=== PATIENT | female | born 1965 | race Caucasian/White ===

== ENCOUNTER 2016-10-04 22:52 | Emergency (ER) | payer OTHER ==
[~2016-10-04] VITALS: Ht 154.9 cm; Wt 96.2 kg
[~2016-10-04 22:52] MED LIST: ADVIN50050 INH; ALBU1NEB10 INH; ALPR-411 PO; AMOX875T PO; CYAN1TAB4 PO; FLUT0.0529 INH; GABA800T2 PO; GUAISYP8 PO; HYDR-5688 PO; OMEP40CA36 PO; ONDA4TAB7 SL; OXYC1TAB3 PO; SENN8.6C OG; SNG10 PO; TRAM-453 PO; WARF2TAB PO
[2016-10-04 22:56] VITALS: TEMP 36.3; Ht 154.9 cm; Wt 96.2 kg
[2016-10-04] MEDS ORDERED: ALBUT/IPRATROP 3MG/0.5MG NEB 3 ML VIAL INH STA (23:08)
[2016-10-04] MEDS ORDERED: ADVIN50/60 INH (23:43)
[2016-10-04] MEDS ORDERED: PRLSR20 PO (23:49)
[2016-10-04 23:50] VITALS: BP 121/69; PULSE 87; O2SAT 97
[2016-10-04] MEDS ORDERED: AZITTAB PO (23:55)
--- NOTE | 2016-10-05 04:57 | EMERGENCY ROOM VISIT NOTE ---
History First contact with patient: 23:05 Chief Complaint: RESPIRATORY PROBLEMS Stated Complaint: ASTHMA,CAN'T BREATHE WHEN COUGHING Nursing Triage Summary: Patient reports difficulty breathing since yestrday. States her throat feels tight. Patient has a hx of asthma. States that her nebulizer machine at home is broken and not working properly. Patient also reports headache today. History of Present Illness The patient is a 51 year old female who presents to the Emergency Room with complaints of cough and wheezing for the past day. Patient states her home nebulizer broke. She has steroids already today. She had on back refill from the family care doctor. She took 1 dose already. Patient denies chest pain, fever, chills, productive cough, headache, sore throat, earache, abdominal pain , leg pain or swelling. No other complaints per patient. She states this feels like her asthma. Review of Systems See HPI for pertinent positives & negatives. A total of 10 systems reviewed and were otherwise negative. Past Medical/Surgical History Medical Problems: (1) Asthma (2) Bipolar I disorder (3) Esophageal Reflux (4) Hyperlipidemia Nec/Nos (5) Hypertension Nos (6) Migraine Unspecified W/O Intractable Migraine Surgical Problems: (1) Status post left hip replacement Social History Smoking Status: Former Smoker Alcohol Use: none Housing Status: lives with family Occupation Status: employed Current/Historical Medications Scheduled Alprazolam (Xanax), 0.5 MG PO TID Azithromycin (Zithromax Z-Saleem), 1 PKT PO UD Cyanocobalamin (B-12), 2,500 MCG PO DAILY Fluticasone Propionate (Nasal) (Flonase Allergy Relief), 2 SPRY CARLENE DIRECTED Gabapentin (Neurontin), 800 MG PO TID Medroxyprogesterone Acetate (C (Medroxyprogesterone Aceta), 150 MG IM Q3M Montelukast Sodium (Singulair), 10 MG PO HS Omeprazole (Prilosec), 40 MG PO BID Prednisone (Prednisone Tab), 40 MG PO DIRECTED Scheduled PRN Albuterol Sulf (Proventil 0.083% 2.5MG/3ML), 2.5 MG INH Q4 PRN for wheezing Fluticasone Prop/Salmeterol (Advair Diskus 500/50 60 Dose), 1 PUFF INH BID PRN for asthma Furosemide (Lasix), 40 MG PO UD PRN for swelling Ondansetron Odt (Zofran Odt), 4 MG SL Q6H PRN for Nausea Tramadol Hcl (Ultram), 50-100 MG PO Q6 PRN for Pain Allergies Coded Allergies: Sulfa Drugs (Verified Allergy, Severe, ANAPHYLAXIS, 10/05/16) Meperidine (Verified Allergy, Unknown, 10/05/16) Nicotine (Verified Allergy, Unknown, FROM NICOTINE PATCH, 10/05/16) Oxycodone (Verified Allergy, Unknown, TYLOX, 10/05/16) Sumatriptan (Verified Allergy, Unknown, ANAPHYLAXIS, 10/05/16) Uncoded Allergies: OPIATE ANTAG (Allergy, Unknown, OXYCODONE, 09/20/09) Physical Exam Vital Signs Date Time Temp Pulse Resp B/P Pulse Ox O2 Delivery O2 Flow Rate FiO2 10/04/16 23:50 97 Room Air 10/04/16 23:50 87 20 121/69 97 Room Air 10/04/16 23:04 Room Air 10/04/16 22:56 36.3 88 20 133/76 96 Room Air Pain Rating (0-10): 0 Physical Exam VITALS: Vitals are noted on the nurse's note and reviewed by myself. Vital signs stable. GENERAL: Pleasant female speaking in full sentences, in no acute distress, nondiaphoretic, well-developed well-nourished. SKIN: The skin was without rashes, erythema, edema, or bruising. There is no tenting of the skin. Capillary reflex less than 2 seconds. HEAD: Normocephalic atraumatic. EARS: External auditory canals clear, tympanic membranes pearly paige without erythema or effusion bilaterally. EYES: Pupils equal round and reactive to light and accommodation. Conjunctivae without injection, sclerae without icterus. Extraocular movements intact. NOSE: Patent, turbinates without inflammation or discharge. MOUTH: Mucous membranes moist. Pharynx without erythema or exudate. Uvula midline. Airway patent. Tongue does not deviate. NECK: Supple without nuchal rigidity. No lymphadenopathy. No thyromegaly. Cervical spine is nontender. No JVD. HEART: Regular rate and rhythm without murmurs gallops or rubs. LUNGS: Diffuse inspiration and expiratory wheezes, without rales or rhonchi. No dullness to percussion. No retractions or accessory muscle use. ABDOMEN: Positive bowel sounds x 4. Normal tympanic percussion. Soft, nontender, without masses or organomegaly. Ahmadi sign negative. No guarding or rebound tenderness. MUSCULOSKELETAL: No muscle atrophy, erythema, or edema noted. NEURO: Patient was alert and oriented to person place and time. Normal sensation to light and sharp touch. No focal neurological deficits. Medical Decision & Procedures Medications Administered Medications (Trade) Dose Ordered Sig/Carlin Route Start Time Stop Time Status Last Admin Dose Admin Albuterol/ Ipratropium (Duoneb) 3 ml NOW STAT INH 10/04/16 23:08 10/04/16 23:10 DC 10/04/16 23:38 3 ML ED Course Prior records/ancillary studies reviewed. Triage Nursing notes reviewed. Additional history obtained from the family. The patient's history was concerning for respiratory difficulties. Differential diagnosis: Etiologies such as infections, reactive airway disease, pneumonia, pneumothorax , COPD, CHF, cardiac ischemia, pulmonary embolism, musculoskeletal, gastrointestinal, as well as others were entertained. Physical examination: As above. Medications Nebulizer On reassessment the patient felt better. Diagnostic interpretation by me: Deferred This appears to be consistent with asthma exacerbation. Patient felt much better after being medicated as above. She was not hypoxic. She was not retracting. Lungs are reassessed and improved. She was advised to continue her steroids and to follow-up with family care in a few days or here in the ER sooner for chest pain, difficulty breathing, fevers, worsening signs or symptoms or as needed. By the evaluation outlined above emergent etiologies such as CHF, cardiac ischemia, pulmonary embolism,pneumonia, pneumothorax, musculoskeletal, serious bacterial infections, as well as others were deemed relatively unlikely. The pt informed about the findings as listed above. All questions were answered and pleased with the treatment. Return instructions were outlined and the patient was discharged in stable condition. Referral: The patient was referred back to their primary care physician for follow-up in 2 to 3 days for a recheck of the current condition. Medical Decision As above Impression Primary Impression: Asthma exacerbation Departure Information Dispostion Home / Self-Care Condition GOOD Forms WORK / SCHOOL INSTRUCTIONS, HOME CARE DOCUMENTATION FORM, IMPORTANT VISIT INFORMATION Patient Instructions Asthma - [facility], [facility] Additional Instructions Albuterol Inhaler: Take 2 puffs four times daily for five days, then as needed. Continue your prednisone. Continue your Azithromycin(Zithromax) 250mg: Take one a day for 4 additional days. All antibiotics can cause diarrhea. If this occurs and you feel worse or it does not resolve in 1-2 days follow up with your doctor or return to the Emergency Department as this could be signs of serious underlying problems. Any medication can cause an allergic reaction, stop the pills immediately and return to the ER for rash, hives, breathing difficulties, or swelling. Acetaminophen(Tylenol) may be used for fever or pain. Use 1000mg every six hours as needed. Avoid using more than 4000mg in a 24 hour period. (AND/OR) Ibuprofen(Motrin, Advil) may be used for fever or pain. Use 600mg every six hours as needed. Take with food. Avoid using more than 2400mg in a 24 hour period. Do not use 2400mg per day for more than three consecutive days without physician direction. Prolonged inappropriate use can lead to stomach upset or ulcers. Rest and drink plenty of fluids. Avoid smoke/smoking, fumes, dust, or any triggers in the past that may have affected your breathing. Continue current medications. Return to the ER for chest pain, difficulty breathing, fevers, vomiting, worsening of your condition, or as needed. Follow up with your primary physician this week for a recheck of your current condition.
[2017-01-07] MEDS ORDERED: FURO40TA3 PO (11:29)
[2017-01-07] MEDS ORDERED: MEDR150I19 IM (11:29)
== END 2016-10-05 00:10 | disposition home or self-care (01) ==
LOC: C.EDB 22:52 → C.EDC 10-05 00:10
DX: J45.901 Unspecified asthma with (acute) exacerbation (principal); F31.9 Bipolar disorder, unspecified; K21.9 Gastro-esophageal reflux disease without esophagitis; E78.5 Hyperlipidemia, unspecified; I10 Essential (primary) hypertension; Z96.642 Presence of left artificial hip joint; Z79.899 Other long term (current) drug therapy

== ENCOUNTER 2017-01-07 16:30 | Emergency (ER) | payer OTHER ==
[~2017-01-07] VITALS: Ht 154.9 cm; Wt 91.0 kg
[~2017-01-07 16:30] MED LIST changes: +ADVIN50/60 INH; -ADVIN50050 INH; -ALBU1NEB10 INH; -AMOX875T PO; +AZITTAB PO; -FLUT0.0529 INH; +FURO40TA3 PO; -GUAISYP8 PO; -HYDR-5688 PO; +MEDR150I19 IM; -OMEP40CA36 PO; -ONDA4TAB7 SL; -OXYC1TAB3 PO; +PRLSR20 PO; -SENN8.6C OG; -SNG10 PO; -WARF2TAB PO
[2017-01-07] MEDS ORDERED: SODIUM CHLORIDE 0.9% 1000ML 1,000 ML IV STA (16:37)
[2017-01-07] MEDS ORDERED: ONDANSETRON 4MG OD TAB ONE (16:37)
[2017-01-07] MEDS ORDERED: ONDANSETRON INJ 2 MG/ML 2 ML VIAL IV STA (16:37)
[2017-01-07] MEDS ORDERED: KETOROLAC TROMETHAMINE 30 MG/ML VIAL IV STA (16:37)
[2017-01-07 16:40] VITALS: TEMP 36.8; Ht 154.9 cm; Wt 91.0 kg
[2017-01-07] MEDS ORDERED: SUCR1TAB29 PO (17:28)
[2017-01-07 17:44] LABS: BASO % 0.2 %; BASO ABS # 0.01 K/uL (0-0.2); COMPLETE YES; EOS % 1.2 %; HEMATOCRIT 42.6 % (37-47); IG% 0.2 %; LYMPH % 19.8 %; LYMPH ABS # 1.02 K/uL (1.2-3.4); MEAN CELL VOLUME 91.6 fL (80-100); MEAN CORPUSCULAR HEMOGLOBIN 31.2 pg (25-34); MEAN PLATELET VOLUME 11.9 fL (7.4-10.4); MONO % 8.7 %; NEUT % 69.9 %; PLATELET COUNT 178 K/uL (130-400); RED BLOOD COUNT 4.65 M/uL (4.2-5.4); WHITE BLOOD COUNT 5.15 K/uL (4.8-10.8)
[2017-01-07 18:10] LABS: BUN/CREATININE RATIO 8.8 (10-20); CALCIUM 8.1 mg/dl (8.5-10.1); CREATININE 0.97 mg/dl (0.60-1.20); POTASSIUM 3.3 mmol/L (3.5-5.1)
[2017-01-07 18:15] LABS: PARTIAL THROMBOPLASTIN RATIO 0.9; PROTHROMBIN TIME (PATIENT) 11.1 SECONDS (9.0-12.0)
[2017-01-07] MEDS ORDERED: SACC250C PO (18:15)
[2017-01-07] MEDS ORDERED: DOXE10CA PO (18:15)
[2017-01-07] MEDS ORDERED: MOME200A INH (18:28)
[2017-01-07] MEDS ORDERED: ATOM40CA PO (18:28)
[2017-01-07] MEDS ORDERED: IPRA1AER2 INH (18:28)
[2017-01-07] MEDS ORDERED: TOPI100T20 PO ×2 (18:28)
[2017-01-07] MEDS ORDERED: ALPR1TAB3 PO (18:28)
[2017-01-07] MEDS ORDERED: ZIPR1CAP4 PO (18:28)
[2017-01-07] MEDS ORDERED: NYST100010 TOP (18:28)
[2017-01-07] MEDS ORDERED: PANT40TA PO (18:28)
[2017-01-07] MEDS ORDERED: HYDR5SYP11 PO (18:28)
[2017-01-07] MEDS ORDERED: GABA800T PO (18:28)
[2017-01-07] MEDS ORDERED: FLVHFA110 INH (18:28)
[2017-01-07] MEDS ORDERED: ATRINSX INH (18:28)
[2017-01-07] MEDS ORDERED: BUPR-83 PO (18:31)
[2017-01-07] MEDS ORDERED: MULT-513 PO (18:31)
[2017-01-07] MEDS ORDERED: TRAZ100T29 PO (18:31)
[2017-01-07] MEDS ORDERED: MoRPHine SULFATE 4 MG/ML 1 ML CARP\\VIAL IV STA (18:36)
--- NOTE | 2017-01-07 18:38 | DIAGNOSTIC IMAGING REPORT ---
ABDOMEN 2VIEW W/PA CHEST RTN CLINICAL HISTORY: ABDOMINAL PAIN/GI pain. Nausea. COMPARISON STUDY: 02/16/2012. FINDINGS: Lungs are considered clear. Chronic fibrotic scarring left base. No acute infiltrate. Bowel pattern demonstrates several slightly distended loops of small bowel as well as colon. Postoperative changes in the right upper quadrant. Patient status post left hip arthroplasty. IMPRESSION: No acute process the chest. Mild generalized nonobstructive ileus. Electronically signed by: Ariel Newman M.D. 01/07/2017 6:37 PM Dictated Date/Time: 01/07/2017 6:36 PM
--- NOTE | 2017-01-07 18:53 | EMERGENCY ROOM VISIT NOTE ---
History Report prepared by Saritha: Jesús Stafford Under the Supervision of: Dr. Jose Raul Singh D.O. First contact with patient: 16:32 Chief Complaint: ABDOMINAL PAIN Stated Complaint: AB PAIN History of Present Illness The patient is a 51 year old female who presents to the Emergency Room with complaints of persistent upper abdominal pain that started around 1000 this morning. She says that the pain is severe. The patient notes that the pain sometimes wraps around into both her flank regions around her kidney area. She says that when the pain gets really bad, it sometimes will radiate down into her mid abdomen. The patient adds that she has had arm pain the past few days. She states that she had been having diarrhea, but she took 2 Imodium, and now her diarrhea has been relieved. This current pain started after her diarrhea ceased. She says that she has never had symptoms like these before. The patient notes that she has just moved out of a house with black mold inside. Source of History: patient Onset: Around 1000 this morning Position: abdomen (upper, radiating downward) Symptom Intensity: moderate Timing: other (persistent) Associated Symptoms: + diarrhea (has been relieved) Note: Associated symptoms: Bilateral flank pain around kidneys. Review of Systems See HPI for pertinent positives & negatives. A total of 10 systems reviewed and were otherwise negative. Past Medical & Surgical Medical Problems: (1) Asthma (2) Bipolar I disorder (3) Esophageal Reflux (4) Hyperlipidemia Nec/Nos (5) Hypertension Nos (6) Migraine Unspecified W/O Intractable Migraine Surgical Problems: (1) Status post left hip replacement Family History Heart disease Social History Smoking Status: Former Smoker Alcohol Use: none Housing Status: lives with family Occupation Status: employed Current/Historical Medications Scheduled Alprazolam (Xanax), 1 MG PO HS Atomoxetine (Strattera), 40 MG PO DAILY Bupropion (Wellbutrin), 100 MG PO BID Fluticasone Propionate (Flovent Hfa), 2 PUFFS INH BID Fluticasone Propionate (Nasal) (Flonase Allergy Relief), 2 SPRY CARLENE DIRECTED Gabapentin (Neurontin), 800 MG PO TID Ipratropium [place] (Atrovent 0.02% Soln), 1 DOSE INH QID Medroxyprogesterone Acetate (C (Medroxyprogesterone Aceta), 150 MG IM Q3M Mometasone Furoate-Formoterol (Dulera 200/5 Mcg), 2 PUFFS INH BID Montelukast Sodium (Singulair), 10 MG PO HS Multivitamins/Minerals (Mvi With Minerals), 1 TAB PO DAILY Pantoprazole (Protonix), 40 MG PO BID Prednisone (Prednisone Tab), 40 MG PO DIRECTED Saccharomyces Boulardii (Florastor), 2 TABS PO BID Sucralfate (Carafate), 1 GM PO ACHS Topiramate (Topamax), 100 MG PO QAM Topiramate (Topamax), 200 MG PO QPM Trazodone Hcl (Trazodone), 200 MG PO HS Ziprasidone Hcl (Geodon), 40 MG PO UD Scheduled PRN Albuterol Sulf (Proventil 0.083% 2.5MG/3ML), 2.5 MG INH Q4 PRN for wheezing Doxepin (Sinequan), 10-20 MG PO BID PRN for STRESS Furosemide (Lasix), 40 MG PO MWF PRN for swelling Hydrocodone W/ Homatropine (Hycodan 5/1.5MG 5 Ml), 5 ML PO Q6H PRN for Cough Ipratropium-Albuterol (Combivent Respimat), 2 PUFFS INH QID PRN for SOB/Wheezing Nystatin (Topical) (Nystop), 1 APPLN TOP TID PRN for Ondansetron Odt (Zofran Odt), 4 MG SL Q6H PRN for Nausea Allergies Coded Allergies: Sulfa Drugs (Verified Allergy, Severe, ANAPHYLAXIS, 10/05/16) Adhesives (Verified Allergy, Unknown, UNKNOWN, 01/07/17) Meperidine (Verified Allergy, Unknown, 10/05/16) Nicotine (Verified Allergy, Unknown, FROM NICOTINE PATCH, 10/05/16) Oxycodone (Verified Allergy, Unknown, TYLOX, 10/05/16) Sumatriptan (Verified Allergy, Unknown, ANAPHYLAXIS, 10/05/16) Amoxicillin (Verified Adverse Reaction, Severe, GI SYMPTOMS, 01/07/17) Clavulanic Acid (Verified Adverse Reaction, Severe, GI SYMPTOMS, 01/07/17) Milk Protein Extract (Verified Adverse Reaction, Severe, UNABLE TO URINATE , 01/07/17) Tiotropium (Verified Adverse Reaction, Severe, UNABLE TO URINATE, 01/07/17) Uncoded Allergies: OPIATE ANTAG (Allergy, Unknown, OXYCODONE, 09/20/09) Physical Exam Vital Signs Date Time Temp Pulse Resp B/P Pulse Ox O2 Delivery O2 Flow Rate FiO2 01/07/17 18:27 79 16 136/76 98 Room Air 01/07/17 17:00 84 01/07/17 16:40 36.8 118 20 135/83 100 Room Air Physical Exam CONSTITUTIONAL/VITAL SIGNS: Reviewed / noted above. GENERAL: Non-toxic in appearance. INTEGUMENTARY: Warm, dry, and [place]. HEAD: Normocephalic. EYES: without scleral icterus or trauma. ENT/OROPHARYNX: clear and moist. LYMPHADENOPATHY/NECK: Is supple without lymphadenopathy or meningismus. RESPIRATORY: Lungs clear and equal. CARDIOVASCULAR: Regular rate and rhythm. GI/ABDOMEN: Soft and nontender. No organomegaly or pulsatile mass. No rebound or guarding. Normal bowel sounds. EXTREMITIES: Warm and well perfused. BACK: No CVA tenderness. NEUROLOGICAL: Intact without focal deficits. PSYCHIATRIC: normal affect. MUSCULOSKELETAL: Normally developed with good muscle tone. Medical Decision & Procedures ER Provider Diagnostic Interpretation: Radiology results as stated below per my review and radiologist interpretation: ABDOMEN 2VIEW W/PA CHEST RTN CLINICAL HISTORY: ABDOMINAL PAIN/GI pain. Nausea. COMPARISON STUDY: 02/16/2012. FINDINGS: Lungs are considered clear. Chronic fibrotic scarring left base. No acute infiltrate. Bowel pattern demonstrates several slightly distended loops of small bowel as well as colon. Postoperative changes in the right upper quadrant. Patient status post left hip arthroplasty. IMPRESSION: No acute process the chest. Mild generalized nonobstructive ileus. Electronically signed by: Ariel Newman M.D. 01/07/2017 6:37 PM Dictated Date/Time: 01/07/2017 6:36 PM ABDOMEN AND PELVIS CT WITHOUT CONTRAST CT DOSE: 1050.48 mGy.cm HISTORY: Pain. Nausea. upper abd pain TECHNIQUE: Multiaxial CT images of the abdomen and pelvis were performed without contrast. COMPARISON STUDY: None. FINDINGS: Lung bases are clear. Liver spleen and pancreas are unremarkable. Prior cholecystectomy. Kidneys are negative for calcification or hydronephrosis. Bowel pattern is nonobstructive. The appendix is normal. Bladder is midline. Prior left hip arthroplasty. IMPRESSION: No significant abnormality identified within the abdomen or pelvis. Electronically signed by: Ariel Newman M.D. 01/07/2017 7:24 PM Dictated Date/Time: 01/07/2017 7:22 PM Laboratory Results 01/07/17 17:30 Red Blood Count 4.65, Mean Corpuscular Volume 91.6, Mean Corpuscular Hemoglobin 31.2, Mean Corpuscular Hemoglobin Concent 34.0, Mean Platelet Volume 11.9, Neutrophils (%) (Auto) 69.9, Lymphocytes (%) (Auto) 19.8, Monocytes (%) (Auto) 8.7, Eosinophils (%) (Auto) 1.2, Basophils (%) (Auto) 0.2, Neutrophils # (Auto) 3.60, Lymphocytes # (Auto) 1.02, Monocytes # (Auto) 0.45, Eosinophils # (Auto) 0.06, Basophils # (Auto) 0.01 01/07/17 17:30 Test 01/07/17 17:30 01/07/17 17:50 White Blood Count 5.15 K/uL (4.8-10.8) Red Blood Count 4.65 M/uL (4.2-5.4) Hemoglobin 14.5 g/dL (12.0-16.0) Hematocrit 42.6 % (37-47) Mean Corpuscular Volume 91.6 fL (80-100) Mean Corpuscular Hemoglobin 31.2 pg (25-34) Mean Corpuscular Hemoglobin Concent 34.0 g/dl (32-36) Platelet Count 178 K/uL (130-400) Mean Platelet Volume 11.9 fL (7.4-10.4) Neutrophils (%) (Auto) 69.9 % Lymphocytes (%) (Auto) 19.8 % Monocytes (%) (Auto) 8.7 % Eosinophils (%) (Auto) 1.2 % Basophils (%) (Auto) 0.2 % Neutrophils # (Auto) 3.60 K/uL (1.4-6.5) Lymphocytes # (Auto) 1.02 K/uL (1.2-3.4) Monocytes # (Auto) 0.45 K/uL (0.11-0.59) Eosinophils # (Auto) 0.06 K/uL (0-0.5) Basophils # (Auto) 0.01 K/uL (0-0.2) RDW Standard Deviation 42.3 fL (36.4-46.3) RDW Coefficient of Variation 12.7 % (11.5-14.5) Immature Granulocyte % (Auto) 0.2 % Immature Granulocyte # (Auto) 0.01 K/uL (0.00-0.02) Anion Gap 8.0 mmol/L (3-11) Est Creatinine Clear Calc Drug Dose 71.3 ml/min Estimated GFR () 78.9 Estimated GFR (Non- 68.1 BUN/Creatinine Ratio 8.8 (10-20) Calcium Level 8.1 mg/dl (8.5-10.1) Total Bilirubin 0.7 mg/dl (0.2-1) Direct Bilirubin 0.2 mg/dl (0-0.2) Aspartate Amino Transf (AST/SGOT) 20 U/L (15-37) Alanine Aminotransferase (ALT/SGPT) 23 U/L (12-78) Alkaline Phosphatase 81 U/L (45-117) Total Protein 6.8 gm/dl (6.4-8.2) Albumin 3.6 gm/dl (3.4-5.0) Lipase 84 U/L (73-393) Prothrombin Time 11.1 SECONDS (9.0-12.0) Prothromb Time International Ratio 1.0 (0.9-1.1) Activated Partial Thromboplast Time 23.2 SECONDS (21.0-31.0) Partial Thromboplastin Ratio 0.9 Laboratory results as stated above per my review. Medications Administered Medications (Trade) Dose Ordered Sig/Carlin Route Start Time Stop Time Status Last Admin Dose Admin Ondansetron HCl 4 mg 4 mg STK-MED ONCE .ROUTE 01/07/17 16:37 01/07/17 16:38 DC 01/07/17 16:37 4 MG Sodium Chloride (Nss 1000ml) 1,000 ml @ 999 mls/hr Q1H1M STAT IV 01/07/17 16:37 01/07/17 17:37 DC 01/07/17 17:25 999 MLS/HR Ondansetron HCl (Zofran Inj) 4 mg NOW STAT IV 01/07/17 16:37 01/07/17 16:40 DC 01/07/17 17:34 4 MG Ketorolac Tromethamine (Toradol Inj) 30 mg NOW STAT IV 01/07/17 16:37 01/07/17 16:40 DC 01/07/17 17:34 30 MG Morphine Sulfate (MoRPHine SULFATE INJ) 4 mg NOW STAT IV 01/07/17 18:36 01/07/17 18:37 DC 01/07/17 18:36 4 MG Hydromorphone HCl (Dilaudid Inj) 2 mg NOW STAT IV 01/07/17 18:55 01/07/17 18:57 DC 01/07/17 19:05 2 MG Prochlorperazine Edisylate (Compazine Inj) 10 mg NOW STAT IV 01/07/17 18:55 01/07/17 18:57 DC 01/07/17 19:00 10 MG ED Course 1634: Previous medical records were reviewed. The patient was evaluated in room C2B. A complete history and physical examination was performed. 163: Ordered Toradol Inj 30 mg IV, Zofran Inj 4 mg IV, NSS 1000 ml @ 999 mls/ hr IV. 183: Ordered Morphine Sulfate Inj 4 mg IV. 1852: I reevaluated the patient and she is still having pain. 1854: Ordered Compazine Inj 10 mg IV, Dilaudid Inj 2 mg IV. 3: On reevaluation, the patient is resting. I discussed the results and findings with the patient. She verbalized agreement of the treatment plan. She was discharged home. Medical Decision Differential considered: pancreatitis, hepatitis, or acute cholecystitis, AAA, UTI, pyelonephritis, kidney stones, appendicitis, diverticulitis, shingles, bowel obstruction mesenteric ischemia, intussusception,hernia, ovarian torsion, ruptured ovarian cyst,ectopic , . Medication Reconciliation: I attest that I have personally reviewed the patient' s current medication list. Blood pressure Screening: Patient was found to have normal blood pressure on screening and does not require follow-up. This is a 51-year-old female who presents to the ED with a chief complaint of diarrhea as well as some nausea, upper abdominal pain and low back pain. The patient states that her symptoms started around 10 AM this morning. She denies any other significant symptoms. The patient has a relatively unremarkable abdominal exam. CBC, complete metabolic panel, lipase are normal. Urine did not show infection. A chest x-ray was negative for acute disease. Abdominal series showed mild ileus. CT scan of the abdomen or pelvis did not show any acute abnormality. The patient was told the results. She was treated with IV fluids, IV Toradol and IV Zofran. She was also given IV morphine., Dilaudid IV and Compazine IV. She was felt to be stable for discharge and outpatient follow -up. Impression Primary Impression: Diarrhea Additional Impression: Upper abdominal pain Scribe Attestation The scribe's documentation has been prepared under my direction and personally reviewed by me in its entirety. I confirm that the note above accurately reflects all work, treatment, procedures, and medical decision making performed by me. Departure Information Dispostion Home / Self-Care Referrals Maxine Edwards M.D. (MEDICAL) (PCP) Patient Instructions Abdominal Pain, My [facility] Additional Instructions Follow-up with your doctor for further care and evaluation in 1-2 days. Return to the emergency department for worsening or new symptoms or any concerns. You have been examined and treated today on an emergency basis only. This is not a substitute for, or an effort to provide, complete comprehensive medical care. It is impossible to recognize and treat all injuries or illnesses in a single emergency department visit. It is therefore important that you follow up closely with your doctor. Call as soon as possible for an appointment. Problem Qualifiers
[2017-01-07] MEDS ORDERED: PROCHLORPERAZINE 5 MG/ML 2 ML VIAL IV STA (18:55)
[2017-01-07] MEDS ORDERED: HYDROmorphone INJ 2 MG/ML SYR/VIAL IV STA (18:55)
--- NOTE | 2017-01-07 19:25 | DIAGNOSTIC IMAGING REPORT ---
ABDOMEN AND PELVIS CT WITHOUT CONTRAST CT DOSE: 1050.48 mGy.cm HISTORY: Pain. Nausea. upper abd pain TECHNIQUE: Multiaxial CT images of the abdomen and pelvis were performed without contrast. COMPARISON STUDY: None. FINDINGS: Lung bases are clear. Liver spleen and pancreas are unremarkable. Prior cholecystectomy. Kidneys are negative for calcification or hydronephrosis. Bowel pattern is nonobstructive. The appendix is normal. Bladder is midline. Prior left hip arthroplasty. IMPRESSION: No significant abnormality identified within the abdomen or pelvis. Electronically signed by: Ariel Newman M.D. 01/07/2017 7:24 PM Dictated Date/Time: 01/07/2017 7:22 PM
[2017-01-07 20:10] VITALS: BP 136/78; PULSE 95; O2SAT 97
[2017-01-07] MEDS ORDERED: ALBINS/ INH (23:45)
[2017-01-07] MEDS ORDERED: FLUT0.15 NAE (23:46)
[2017-01-07] MEDS ORDERED: MONT1TAB3 PO (23:48)
[2017-01-07] MEDS ORDERED: ONDA8TAB62 SL (23:50)
[2017-01-07] MEDS ORDERED: PRED20TA2 PO (23:53)
== END 2017-01-07 20:11 | disposition home or self-care (01) ==
LOC: EDBD 16:30 → C.EDC 16:31
DX: R19.7 Diarrhea, unspecified (principal); R10.10 Upper abdominal pain, unspecified; E78.5 Hyperlipidemia, unspecified; I10 Essential (primary) hypertension; K21.9 Gastro-esophageal reflux disease without esophagitis; F31.9 Bipolar disorder, unspecified; J45.909 Unspecified asthma, uncomplicated; Z96.642 Presence of left artificial hip joint; Z87.891 Personal history of nicotine dependence; Z79.899 Other long term (current) drug therapy; Z88.1 Allergy status to other antibiotic agents; Z88.2 Allergy status to sulfonamides; Z88.5 Allergy status to narcotic agent; Z88.8 Allergy status to other drugs, medicaments and biological substances; Z91.011 Allergy to milk products; Z91.09 Other allergy status, other than to drugs and biological substances; Z82.49 Family history of ischemic heart disease and other diseases of the circulatory system

== ENCOUNTER 2017-08-31 14:53 | Emergency (ER) | payer OTHER ==
[~2017-08-31] VITALS: Ht 154.9 cm; Wt 100.0 kg
[~2017-08-31 14:53] MED LIST changes: -ADVIN50/60 INH; +ALBINS/ INH; -ALPR-411 PO; +ALPR1TAB3 PO; +ATOM40CA PO; +ATRINSX INH; -AZITTAB PO; +BUPR-83 PO; -CYAN1TAB4 PO; +DOXE10CA PO; +FLUT0.15 NAE; +FLVHFA110 INH; +GABA800T PO; -GABA800T2 PO; +HYDR5SYP11 PO; +IPRA1AER2 INH; +MOME200A INH; +MONT1TAB3 PO; +MULT-513 PO; +NYST100010 TOP; +ONDA8TAB62 SL; +PANT40TA PO; +PRED20TA2 PO; -PRLSR20 PO; +SACC250C PO; +SUCR1TAB29 PO; +TOPI100T20 PO; -TRAM-453 PO; +TRAZ100T29 PO; +ZIPR1CAP4 PO
[2017-08-31] MEDS ORDERED: ALBUT/IPRATROP 3MG/0.5MG NEB 3 ML VIAL INH STA (15:02)
[2017-08-31] MEDS ORDERED: SODIUM CHLORIDE 0.9% 1000ML 1,000 ML IV STA (15:02)
[2017-08-31] MEDS ORDERED: ONDANSETRON INJ 2 MG/ML 2 ML VIAL IV STA ×2 (15:02→21:16)
[2017-08-31 15:06] VITALS: TEMP 36.4; Ht 154.9 cm; Wt 100.0 kg
--- NOTE | 2017-08-31 15:09 | EMERGENCY ROOM VISIT NOTE ---
History Report prepared by Saritha: Jesús Stafford Under the Supervision of: Dr. Marci Medel M.D. First contact with patient: 14:58 Chief Complaint: ILLNESS Stated Complaint: ILLNESS (GENERAL) History of Present Illness The patient is a 52 year old female who presents to the Emergency Room with complaints of a waxing and waning generalized illness that started a couple weeks ago. She states that she was diagnosed with bronchitis, and just finished her prescribed antibiotic. She says that she was getting better, but her symptoms are now coming back. The patient states that her was recently diagnosed with pneumonia, and was negative for influenza. She notes that she has been short of breath, especially on exertion. She adds that she has mid left -sided abdominal pain, and has been having bad diarrhea that worsened last night , in addition to nausea and dry heaving. The patient denies any vomiting or hematochezia. She notes a history of C. difficile. The patient says that she is a smoker, but has not smoked the past few days. She adds that she has not taken her temperature. Source of History: patient, nursing staff Onset: A couple weeks ago Position: other (global - illness) Quality: other (diagnosed with bronchitis) Timing: waxes/wanes Associated Symptoms: + SOB, + nausea, + abdominal pain, + diarrhea, No vomiting, No hematochezia Note: Associated symptoms; Dry heaves. Review of Systems See HPI for pertinent positives & negatives. A total of 10 systems reviewed and were otherwise negative. Past Medical & Surgical Medical Problems: (1) Asthma (2) Bipolar I disorder (3) Esophageal Reflux (4) Hyperlipidemia Nec/Nos (5) Hypertension Nos (6) Migraine Unspecified W/O Intractable Migraine Surgical Problems: (1) Status post left hip replacement Family History Heart disease Social History Smoking Status: Former Smoker Alcohol Use: none Housing Status: lives with family Occupation Status: employed Current/Historical Medications Scheduled Atomoxetine (Strattera), 40 MG PO DAILY Bupropion (Wellbutrin), 75 MG PO QAM Bupropion (Wellbutrin Sr), 100 MG PO QAM Doxepin Hcl (Doxepin), 75 MG PO HS Gabapentin (Neurontin), 800 MG PO TID Medroxyprogesterone Acetate (C (Medroxyprogesterone Aceta), 150 MG IM Q3M Montelukast Sodium (Singulair), 10 MG PO HS Pantoprazole (Protonix), 40 MG PO BID Topiramate (Topamax), 50 MG PO QAM Topiramate (Topamax), 100 MG PO HS Venlafaxine Hcl (Effexor Xr), 37.5 MG PO DAILY Ziprasidone Hcl (Geodon), 80 MG PO QPM Ziprasidone Hcl (Geodon), 60 MG PO QAM Scheduled PRN Alprazolam (Xanax), 0.5 MG PO BID PRN for Anxiety Furosemide (Lasix), 40 MG PO UD PRN for SWELLING Ipratropium-Albuterol (Combivent Respimat), 2 PUFFS INH Q4 PRN for Wheezing Allergies Coded Allergies: Sulfa Drugs (Verified Allergy, Severe, ANAPHYLAXIS, 08/31/17) Morphine (Unverified Allergy, Intermediate, EXTREME ITCHING, 08/31/17) Adhesives (Verified Allergy, Unknown, UNKNOWN, 08/31/17) Meperidine (Verified Allergy, Unknown, 08/31/17) Nicotine (Verified Allergy, Unknown, FROM NICOTINE PATCH, 08/31/17) Oxycodone (Verified Allergy, Unknown, TYLOX, 08/31/17) Sumatriptan (Verified Allergy, Unknown, ANAPHYLAXIS, 08/31/17) Amoxicillin (Verified Adverse Reaction, Severe, GI SYMPTOMS, 08/31/17) Clavulanic Acid (Verified Adverse Reaction, Severe, GI SYMPTOMS, 08/31/17) Milk Protein Extract (Verified Adverse Reaction, Severe, UNABLE TO URINATE , 08/31/17) Tiotropium (Verified Adverse Reaction, Severe, UNABLE TO URINATE, 08/31/17) Uncoded Allergies: OPIATE ANTAG (Allergy, Unknown, OXYCODONE, 09/20/09) Physical Exam Vital Signs Date Time Temp Pulse Resp B/P (MAP) Pulse Ox O2 Delivery O2 Flow Rate FiO2 08/31/17 20:30 122/73 08/31/17 20:28 90 97 08/31/17 20:01 117/73 08/31/17 19:58 94 100 08/31/17 19:31 132/77 08/31/17 19:28 92 97 08/31/17 19:23 83 97 08/31/17 19:01 133/85 08/31/17 18:53 85 98 08/31/17 18:31 /82 08/31/17 18:23 80 98 08/31/17 18:01 112/62 08/31/17 17:53 84 97 08/31/17 17:31 103 18 123/63 99 Room Air 08/31/17 17:30 123/63 08/31/17 16:45 101 17 108/66 97 Room Air 08/31/17 16:23 88 19 100 08/31/17 16:01 108/66 08/31/17 15:53 92 16 100 08/31/17 15:51 107/79 08/31/17 15:23 86 08/31/17 15:23 89 18 08/31/17 15:06 36.4 86 20 111/69 98 Room Air 08/31/17 15:02 111/69 Physical Exam Vital signs reviewed. General: Uncomfortable-appearing 52 year old female, in no significant distress. HEENT: No scleral icterus, PERRLA, neck supple. Atraumatic. Cardiovascular: Regular rate and rhythm, no extra sounds. Pulmonary: Clear to auscultation bilaterally, normal work of breathing. Abdomen: Soft, nontender, nondistended, positive bowel sounds. Musculoskeletal: Atraumatic, no peripheral edema. Neurologic: Patient awake alert and oriented x 3, full strength in all 4 extremities. Cranial nerves 2 through 12 grossly intact. Skin: Warm, dry, no rash Medical Decision & Procedures ER Provider Diagnostic Interpretation: X-ray results as stated below per interpretation by me and the radiologist: CHEST ONE VIEW PORTABLE CLINICAL HISTORY: Generalized illness. Recent bronchitis. COMPARISON STUDY: Chest radiograph January 02. FINDINGS: Lung volumes are diminished. This is unchanged. No pneumothorax or pleural effusion is noted. Linear left lung opacity suggests atelectasis. There is no evidence for pulmonary edema. Cardiomediastinal silhouette is unremarkable. IMPRESSION: No acute cardiopulmonary findings. No change in appearance of the chest. Electronically signed by: Matthew Mahmood M.D. 08/31/2017 3:28 PM Dictated Date/Time: 08/31/2017 3:27 PM Laboratory Results 08/31/17 15:40 Red Blood Count 5.16, Mean Corpuscular Volume 93.2, Mean Corpuscular Hemoglobin 31.8, Mean Corpuscular Hemoglobin Concent 34.1, Mean Platelet Volume 12.2, Neutrophils (%) (Auto) 78.4, Lymphocytes (%) (Auto) 14.2, Monocytes (%) (Auto) 6.5, Eosinophils (%) (Auto) 0.2, Basophils (%) (Auto) 0.2, Neutrophils # (Auto) 10.23, Lymphocytes # (Auto) 1.85, Monocytes # (Auto) 0.85, Eosinophils # (Auto) 0.03, Basophils # (Auto) 0.02 08/31/17 15:40 Test 08/31/17 15:40 08/31/17 19:50 White Blood Count 13.04 K/uL (4.8-10.8) Red Blood Count 5.16 M/uL (4.2-5.4) Hemoglobin 16.4 g/dL (12.0-16.0) Hematocrit 48.1 % (37-47) Mean Corpuscular Volume 93.2 fL (80-100) Mean Corpuscular Hemoglobin 31.8 pg (25-34) Mean Corpuscular Hemoglobin Concent 34.1 g/dl (32-36) Platelet Count 300 K/uL (130-400) Mean Platelet Volume 12.2 fL (7.4-10.4) Neutrophils (%) (Auto) 78.4 % Lymphocytes (%) (Auto) 14.2 % Monocytes (%) (Auto) 6.5 % Eosinophils (%) (Auto) 0.2 % Basophils (%) (Auto) 0.2 % Neutrophils # (Auto) 10.23 K/uL (1.4-6.5) Lymphocytes # (Auto) 1.85 K/uL (1.2-3.4) Monocytes # (Auto) 0.85 K/uL (0.11-0.59) Eosinophils # (Auto) 0.03 K/uL (0-0.5) Basophils # (Auto) 0.02 K/uL (0-0.2) RDW Standard Deviation 44.5 fL (36.4-46.3) RDW Coefficient of Variation 13.1 % (11.5-14.5) Immature Granulocyte % (Auto) 0.5 % Immature Granulocyte # (Auto) 0.06 K/uL (0.00-0.02) Red Blood Cell Morphology Unremarkable Anion Gap 7.0 mmol/L (3-11) Est Creatinine Clear Calc Drug Dose 88.0 ml/min Estimated GFR () 96.0 Estimated GFR (Non- 82.9 BUN/Creatinine Ratio 18.6 (10-20) Calcium Level 8.8 mg/dl (8.5-10.1) Magnesium Level 2.5 mg/dl (1.8-2.4) Total Bilirubin 1.1 mg/dl (0.2-1) Direct Bilirubin 0.3 mg/dl (0-0.2) Aspartate Amino Transf (AST/SGOT) 14 U/L (15-37) Alanine Aminotransferase (ALT/SGPT) 28 U/L (12-78) Alkaline Phosphatase 120 U/L (45-117) Total Protein 8.0 gm/dl (6.4-8.2) Albumin 3.8 gm/dl (3.4-5.0) Lipase 118 U/L (73-393) Urine Color DK YELLOW Urine Appearance CLEAR (CLEAR) Urine pH 5.5 (4.5-7.5) Urine Specific Curlew 1.033 (1.000-1.030) Urine Protein NEG (NEG) Urine Glucose (UA) NEG (NEG) Urine Ketones 3+ (NEG) Urine Occult Blood NEG (NEG) Urine Nitrite NEG (NEG) Urine Bilirubin 1+ (NEG) Urine Urobilinogen NEG (NEG) Urine Leukocyte Esterase NEG (NEG) Laboratory results per my review. Medications Administered Medications (Trade) Dose Ordered Sig/Carlin Route Start Time Stop Time Status Last Admin Dose Admin Albuterol/ Ipratropium (Duoneb) 3 ml NOW STAT INH 08/31/17 15:02 08/31/17 15:05 DC 08/31/17 15:52 3 ML Sodium Chloride 1,000 ml @ 999 mls/hr Q1H1M STAT IV 08/31/17 15:02 08/31/17 16:02 DC 08/31/17 15:52 999 MLS/HR Ondansetron HCl (Zofran Inj) 4 mg NOW STAT IV 08/31/17 15:02 08/31/17 15:05 DC 08/31/17 15:52 4 MG Acetaminophen (Tylenol Tab) 650 mg NOW STAT PO 08/31/17 17:13 08/31/17 17:14 DC 08/31/17 17:20 650 MG Ondansetron HCl (Zofran Inj) 4 mg NOW STAT IV 08/31/17 21:16 08/31/17 21:17 DC 08/31/17 21:35 4 MG Ondansetron HCl (ZOFRAN ODT 4MG Home Pack) 1 homepack UD ONCE PO 08/31/17 21:30 08/31/17 21:31 DC 08/31/17 21:35 1 HOMEPACK ECG Indication: SOB/dyspnea Rate (beats per minute): 86 Rhythm: normal sinus Findings: no acute ischemic change, no ectopy, other (T-wave abnormality in anterior leads) ED Course 1500: Past medical records reviewed. The patient was evaluated in room A11B. A complete history and physical examination was performed. 150: Ordered Zofran Inj 4 mg IV, NSS 1000 ml @ 999 mls/hr IV, DuoNeb 3 ml INH. 1712: Ordered Tylenol Tab 650 mg PO. 2106: Upon reevaluation, the patient appeared to have improvement of her symptoms. I discussed findings with her. She verbalized agreement of the treatment plan. She was discharged home. 2115: Ordered Zofran Inj 4 mg IV. 2129: Ordered Zofran ODT 4MG Home Pack 1 homepack PO. Medical Decision Differential diagnosis: Etiologies such as metabolic, infection, hypo/hyperglycemia, electrolyte abnormalities, cardiac sources, intracerebral event, toxicologic, neurologic, as well as others were entertained. This patient was evaluated and appeared to be in some discomfort. IV access was obtained and laboratory work was drawn. Patient does have a mild elevation of her white blood cell count. The patient was observed for multiple hours in the emergency department. She did receive a DuoNeb treatment, IV hydration, IV Zofran and by mouth Tylenol. She is afebrile. Urinalysis is negative. I do not find an obvious source for the patient's symptoms. She was discharged and advised to continue with current conservative management. She will use Zofran as needed for nausea. Patient will follow-up with her PCP this week for reevaluation return to the ER for worsening of symptoms or any medical concerns. Medication Reconcilliation Current Medication List: was personally reviewed by me Blood Pressure Screening Patient's blood pressure: Normal blood pressure Impression Primary Impression: Nausea Scribe Attestation The scribe's documentation has been prepared under my direction and personally reviewed by me in its entirety. I confirm that the note above accurately reflects all work, treatment, procedures, and medical decision making performed by me. Departure Information Dispostion Home / Self-Care Referrals Maxnie Edwards M.D. (MEDICAL) (PCP) Forms HOME CARE DOCUMENTATION FORM, IMPORTANT VISIT INFORMATION, WORK / SCHOOL INSTRUCTIONS Patient Instructions My [facility] Additional Instructions Diagnosis: Nausea Zofran 4 mg ODT every 6 hours as needed for nausea. Drink plenty of clear fluids and advance your diet slowly as tolerated. Follow-up with your physician this week for reevaluation. Return to the ER for worsening of symptoms or any medical concerns.
--- NOTE | 2017-08-31 15:29 | DIAGNOSTIC IMAGING REPORT ---
CHEST ONE VIEW PORTABLE CLINICAL HISTORY: Generalized illness. Recent bronchitis. COMPARISON STUDY: Chest radiograph January 02. FINDINGS: Lung volumes are diminished. This is unchanged. No pneumothorax or pleural effusion is noted. Linear left lung opacity suggests atelectasis. There is no evidence for pulmonary edema. Cardiomediastinal silhouette is unremarkable. IMPRESSION: No acute cardiopulmonary findings. No change in appearance of the chest. Electronically signed by: Matthew Mahmood M.D. 08/31/2017 3:28 PM Dictated Date/Time: 08/31/2017 3:27 PM
[2017-08-31 16:09] LABS: ALBUMIN 3.8 gm/dl (3.4-5.0); CALCIUM 8.8 mg/dl (8.5-10.1); CREATININE 0.82 mg/dl (0.60-1.20); POTASSIUM 3.5 mmol/L (3.5-5.1)
[2017-08-31] MEDS ORDERED: DXP/75 PO (16:18)
[2017-08-31] MEDS ORDERED: FRS/40 PO (16:18)
[2017-08-31] MEDS ORDERED: ALPR1TAB3 PO (16:18)
[2017-08-31] MEDS ORDERED: GDN/80 PO (16:18)
[2017-08-31] MEDS ORDERED: ZIPR60CA PO (16:18)
[2017-08-31] MEDS ORDERED: GABA800T PO (16:18)
[2017-08-31] MEDS ORDERED: VENL1CAP92 PO (16:18)
[2017-08-31] MEDS ORDERED: BUPR75TA20 PO (16:18)
[2017-08-31] MEDS ORDERED: TOPI50TA16 PO ×2 (16:18)
[2017-08-31] MEDS ORDERED: IPRA1AER2 INH (16:18)
[2017-08-31] MEDS ORDERED: STR40 PO (16:18)
[2017-08-31] MEDS ORDERED: MONT1TAB3 PO (16:18)
[2017-08-31] MEDS ORDERED: PANT40TA PO (16:18)
[2017-08-31] MEDS ORDERED: BUPR100T8 PO (16:18)
[2017-08-31 16:39] LABS: HEMATOCRIT 48.1 % (37-47); HEMOGLOBIN 16.4 g/dL (12.0-16.0); MEAN CELL VOLUME 93.2 fL (80-100); MEAN CORPUSCULAR HEMOGLOBIN 31.8 pg (25-34); MEAN CORPUSCULAR HGB CONC 34.1 g/dl (32-36); MEAN PLATELET VOLUME 12.2 fL (7.4-10.4); PLATELET COUNT 300 K/uL (130-400); RED CELL DISTRIBUTION WIDTH CV 13.1 % (11.5-14.5); RED CELL DISTRIBUTION WIDTH SD 44.5 fL (36.4-46.3); WHITE BLOOD COUNT 13.04 K/uL (4.8-10.8)
[2017-08-31 16:40] LABS: BASO % 0.2 %; BASO ABS # 0.02 K/uL (0-0.2); EOS % 0.2 %; EOS ABS # 0.03 K/uL (0-0.5); IG# 0.06 K/uL (0.00-0.02); LYMPH % 14.2 %; LYMPH ABS # 1.85 K/uL (1.2-3.4); MONO % 6.5 %; MONO ABS # 0.85 K/uL (0.11-0.59); NEUT % 78.4 %; NEUT ABS # 10.23 K/uL (1.4-6.5)
[2017-08-31] MEDS ORDERED: ACETAMINOPHEN 325 MG TAB PO STA (17:13)
[2017-08-31] MEDS ORDERED: ONDANSETRON HOME PACK 4MG OD TAB PO ONE (21:30)
[2017-08-31 22:09] VITALS: BP 119/88; PULSE 90; O2SAT 100
== END 2017-08-31 22:21 | disposition home or self-care (01) ==
LOC: EDBD 14:53 → C.EDA 14:54
DX: R11.0 Nausea (principal); R10.9 Unspecified abdominal pain; R19.7 Diarrhea, unspecified; J45.909 Unspecified asthma, uncomplicated; K21.9 Gastro-esophageal reflux disease without esophagitis; D72.829 Elevated white blood cell count, unspecified; F17.200 Nicotine dependence, unspecified, uncomplicated; Z79.3 Long term (current) use of hormonal contraceptives; Z82.49 Family history of ischemic heart disease and other diseases of the circulatory system

== ENCOUNTER 2017-09-15 15:02 | Emergency (ER) | payer OTHER ==
[~2017-09-15] VITALS: Ht 157.5 cm; Wt 104.4 kg
[~2017-09-15 15:02] MED LIST changes: -ALBINS/ INH; -ALPR1TAB3 PO; -ATOM40CA PO; -ATRINSX INH; -BUPR-83 PO; -DOXE10CA PO; -FLUT0.15 NAE; -FLVHFA110 INH; -FURO40TA3 PO; -GABA800T PO; -HYDR5SYP11 PO; -IPRA1AER2 INH; -MOME200A INH; -MONT1TAB3 PO; -MULT-513 PO; -NYST100010 TOP; -ONDA8TAB62 SL; -PANT40TA PO; -PRED20TA2 PO; -SACC250C PO; -SUCR1TAB29 PO; -TOPI100T20 PO; -TRAZ100T29 PO; -ZIPR1CAP4 PO
[2017-09-15 15:21] VITALS: TEMP 36.4
[2017-09-15] MEDS ORDERED: ZIPR60CA PO (16:18)
[2017-09-15] MEDS ORDERED: STR40 PO (16:18)
[2017-09-15] MEDS ORDERED: BUPR75TA20 PO (16:18)
[2017-09-15] MEDS ORDERED: FRS/40 PO (16:18)
[2017-09-15] MEDS ORDERED: PANT40TA PO (16:18)
[2017-09-15] MEDS ORDERED: TOPI50TA16 PO ×2 (16:18)
[2017-09-15] MEDS ORDERED: IPRA1AER2 INH (16:18)
[2017-09-15] MEDS ORDERED: GDN/80 PO (16:18)
[2017-09-15] MEDS ORDERED: VENL1CAP92 PO (16:18)
[2017-09-15] MEDS ORDERED: MONT1TAB3 PO (16:18)
[2017-09-15] MEDS ORDERED: GABA800T PO (16:18)
[2017-09-15] MEDS ORDERED: BUPR100T8 PO (16:18)
[2017-09-15] MEDS ORDERED: DXP/75 PO (16:18)
[2017-09-15] MEDS ORDERED: ALPR1TAB3 PO (16:18)
[2017-09-15 17:28] LABS: BASO % 0.2 %; BASO ABS # 0.02 K/uL (0-0.2); EOS % 2.5 %; EOS ABS # 0.23 K/uL (0-0.5); HEMATOCRIT 42.5 % (37-47); HEMOGLOBIN 14.4 g/dL (12.0-16.0); IG# 0.02 K/uL (0.00-0.02); LYMPH % 33.3 %; LYMPH ABS # 3.04 K/uL (1.2-3.4); MEAN CELL VOLUME 92.6 fL (80-100); MEAN CORPUSCULAR HEMOGLOBIN 31.4 pg (25-34); MEAN CORPUSCULAR HGB CONC 33.9 g/dl (32-36); MEAN PLATELET VOLUME 12.1 fL (7.4-10.4); MONO ABS # 0.82 K/uL (0.11-0.59); NEUT % 54.8 %; NEUT ABS # 5.01 K/uL (1.4-6.5); PLATELET COUNT 246 K/uL (130-400); RED CELL DISTRIBUTION WIDTH CV 13.4 % (11.5-14.5); RED CELL DISTRIBUTION WIDTH SD 45.2 fL (36.4-46.3); WHITE BLOOD COUNT 9.14 K/uL (4.8-10.8)
[2017-09-15] MEDS ORDERED: IBUPROFEN 200 MG TAB PO STA (17:41)
[2017-09-15] MEDS ORDERED: AZEL30SP NAE (17:45)
[2017-09-15] MEDS ORDERED: DICL1GEL12 PO (17:45)
[2017-09-15] MEDS ORDERED: ATRINSX NEB (17:45)
[2017-09-15] MEDS ORDERED: ALBINS/ INH (17:45)
[2017-09-15] MEDS ORDERED: MOME200A INH (17:45)
[2017-09-15 18:05] VITALS: O2SAT 98
[2017-09-15 18:09] LABS: ALBUMIN 3.2 gm/dl (3.4-5.0); ALT/SGPT 52 U/L (12-78); BLOOD UREA NITROGEN 16 mg/dl (7-18); CALCIUM 8.8 mg/dl (8.5-10.1); CARBON DIOXIDE 20 mmol/L (21-32); CREATININE 0.79 mg/dl (0.60-1.20); GLUCOSE 90 mg/dl (70-99); POTASSIUM 3.6 mmol/L (3.5-5.1); SODIUM 138 mmol/L (136-145)
[2017-09-15 18:14] LABS: ALKALINE PHOSPHATASE 96 U/L (45-117); AST/SGOT 35 U/L (15-37); TOTAL PROTEIN 6.8 gm/dl (6.4-8.2)
[2017-09-15] MEDS ORDERED: ALPRAZOLAM 0.5 MG TAB PO STA (18:20)
[2017-09-15 18:40] VITALS: Ht 157.5 cm; Wt 104.4 kg
--- NOTE | 2017-09-15 19:07 | EMERGENCY ROOM VISIT NOTE ---
History First contact with patient: 16:25 Chief Complaint: SWELLING TO EXTREMITY Stated Complaint: PITTING EDEMA, SOB, LOWER BACK PAIN History of Present Illness The patient is a 52 year old female who presents to the Emergency Room with complaints of bilateral lower extremity swelling and shortness of breath with a past 2-3 weeks. She states the shortness of breath is with coughing and lying flat, she denies shortness of breath with exertion. She has noticed increased swelling in her legs after being on her feet for several hours, she states when she pushes on her legs that leaves fingerprints. She also states that she has been feeling more tired lately over the past month or so, which has been affecting her at work. She states that she called her primary care provider's office today for an appointment, she spoke with the nurse, who encouraged her to go to the emergency department to be further evaluated. She states that she has noticed weight gain over the past several weeks as well, she thinks at least 10 pounds. She reports a history of asthma and is a current every day smoker. She does take Lasix as needed for her leg swelling, which she states she has had for several years, although it has never been this bad. She states that she took Lasix 2 days ago, 80 mg, and states "I was up all night peeing." She denies any fevers or chills, chest pain, back pain, nausea or vomiting, diaphoresis, dizziness or syncope, abdominal pain, urinary symptoms, or rash. Review of Systems A complete 10 point review of systems was reviewed with the patient with pertinent positives and negatives as per history of present illness. All else were negative. Past Medical/Surgical History Medical Problems: (1) Asthma (2) Bipolar I disorder (3) Esophageal Reflux (4) Hyperlipidemia Nec/Nos (5) Hypertension Nos (6) Migraine Unspecified W/O Intractable Migraine Surgical Problems: (1) Status post left hip replacement Family History Heart disease Social History Smoking Status: Current Every Day Smoker Alcohol Use: none Housing Status: lives with family Occupation Status: employed Current/Historical Medications Scheduled Alprazolam (Xanax), 0.5 MG PO BID Atomoxetine (Strattera), 40 MG PO DAILY Azelastine Hcl-Fluticasone Pro (Dymista), 2 SPRY CARLENE BID Bupropion (Wellbutrin), 75 MG PO QAM Bupropion (Wellbutrin Sr), 100 MG PO QAM Doxepin Hcl (Doxepin), 75 MG PO HS Gabapentin (Neurontin), 800 MG PO TID Medroxyprogesterone Acetate (C (Medroxyprogesterone Aceta), 150 MG IM Q3M Mometasone Furoate-Formoterol (Dulera 200/5 Mcg), 2 PUFFS INH BID Montelukast Sodium (Singulair), 10 MG PO HS Pantoprazole (Protonix), 40 MG PO BID Topiramate (Topamax), 50 MG PO QAM Topiramate (Topamax), 100 MG PO HS Venlafaxine Hcl (Effexor Xr), 37.5 MG PO DAILY Ziprasidone Hcl (Geodon), 80 MG PO QPM Ziprasidone Hcl (Geodon), 60 MG PO QAM Scheduled PRN Albuterol Sulf (Proventil 0.083% 2.5MG/3ML), 2.5 MG INH QID PRN for Wheezing Diclofenac Sodium (Topical) (Voltaren 1% Top Gel), 4 GM PO QID PRN for Pain Furosemide (Lasix), 40 MG PO UD PRN for SWELLING Ipratropium [place] (Atrovent 0.02% Soln), 1 DOSE NEB QID PRN for Wheezing Ipratropium-Albuterol (Combivent Respimat), 2 PUFFS INH Q4 PRN for Wheezing Allergies Reviewed in chart Physical Exam Vital Signs Date Time Temp Pulse Resp B/P (MAP) Pulse Ox O2 Delivery O2 Flow Rate FiO2 09/15/17 21:36 84 16 128/90 96 Room Air 09/15/17 18:05 98 Room Air 09/15/17 18:05 98 Room Air 09/15/17 18:04 95 20 141/72 96 Room Air 09/15/17 16:59 95 09/15/17 15:21 36.4 106 22 140/83 97 Room Air Physical Exam CONSTITUTIONAL: Pleasant and cooperative. No acute distress, but seems somewhat anxious. She is well-hydrated. HEENT: Normocephalic, atraumatic. Pupils equal, round and reactive to light, EOMI. TMs normal. Pharynx normal. Moist mucous membranes. NECK: Supple, full active range of motion without discomfort. RESPIRATORY: Clear to auscultation bilaterally with no wheezing, crackles, rhonchi or stridor. Equal expansion bilaterally. CARDIOVASCULAR: Regular rate and rhythm with no murmurs, rubs or gallops. Normal peripheral perfusion. Mild 1+ edema noted to the ankles bilaterally. GASTROINTESTINAL: Soft, nontender, nondistended. No palpable masses or HSM. Bowel sounds present in all quadrants. MUSCULOSKELETAL: Full range of motion of all joints without discomfort. Tenderness to palpation of the bilateral calves. Negative Homans sign bilaterally. INTEGUMENTARY: No rash or other significant dermatologic conditions noted. NEUROLOGIC: Alert and oriented X 4 with normal affect. Cranial nerves II-XII grossly intact. No focal neurologic deficits noted. Normal strength and sensation all 4 extremities. Normal speech. Normal gait observed. Medical Decision & Procedures ER Provider Diagnostic Interpretation: BILATERAL LOWER EXTREMITY VENOUS DOPPLER HISTORY: bilat leg swelling, eval DVT COMPARISON STUDY: None. FINDINGS: There is normal compressibility, flow, and augmentation within the bilateral lower extremity deep venous systems. IMPRESSION: No DVT within the right or left lower extremity. ----- CHEST 2 VIEWS ROUTINE HISTORY: EVALUATE RESPIRATORY DISTRESS.DYSPNEA COMPARISON: Chest 08/31/2017. FINDINGS: No pleural effusions. No pneumothorax. There are low lung volumes. Left basilar linear densities remain stable and likely represent subsegmental atelectasis or scarring. No new focal lung consolidations. No evidence for pulmonary edema. The heart is normal in size. Cholecystectomy. IMPRESSION: No significant change compared to the prior study. No acute process. Laboratory Results 09/15/17 17:10 Red Blood Count 4.59, Mean Corpuscular Volume 92.6, Mean Corpuscular Hemoglobin 31.4, Mean Corpuscular Hemoglobin Concent 33.9, Mean Platelet Volume 12.1, Neutrophils (%) (Auto) 54.8, Lymphocytes (%) (Auto) 33.3, Monocytes (%) (Auto) 9.0, Eosinophils (%) (Auto) 2.5, Basophils (%) (Auto) 0.2, Neutrophils # (Auto) 5.01, Lymphocytes # (Auto) 3.04, Monocytes # (Auto) 0.82, Eosinophils # (Auto) 0.23, Basophils # (Auto) 0.02 09/15/17 17:10 Test 09/15/17 17:10 09/15/17 19:20 09/15/17 20:25 White Blood Count 9.14 K/uL (4.8-10.8) Red Blood Count 4.59 M/uL (4.2-5.4) Hemoglobin 14.4 g/dL (12.0-16.0) Hematocrit 42.5 % (37-47) Mean Corpuscular Volume 92.6 fL (80-100) Mean Corpuscular Hemoglobin 31.4 pg (25-34) Mean Corpuscular Hemoglobin Concent 33.9 g/dl (32-36) Platelet Count 246 K/uL (130-400) Mean Platelet Volume 12.1 fL (7.4-10.4) Neutrophils (%) (Auto) 54.8 % Lymphocytes (%) (Auto) 33.3 % Monocytes (%) (Auto) 9.0 % Eosinophils (%) (Auto) 2.5 % Basophils (%) (Auto) 0.2 % Neutrophils # (Auto) 5.01 K/uL (1.4-6.5) Lymphocytes # (Auto) 3.04 K/uL (1.2-3.4) Monocytes # (Auto) 0.82 K/uL (0.11-0.59) Eosinophils # (Auto) 0.23 K/uL (0-0.5) Basophils # (Auto) 0.02 K/uL (0-0.2) RDW Standard Deviation 45.2 fL (36.4-46.3) RDW Coefficient of Variation 13.4 % (11.5-14.5) Immature Granulocyte % (Auto) 0.2 % Immature Granulocyte # (Auto) 0.02 K/uL (0.00-0.02) Anion Gap 9.0 mmol/L (3-11) Est Creatinine Clear Calc Drug Dose 95.5 ml/min Estimated GFR () 100.5 Estimated GFR (Non- 86.7 BUN/Creatinine Ratio 20.0 (10-20) Calcium Level 8.8 mg/dl (8.5-10.1) Total Bilirubin 0.3 mg/dl (0.2-1) Aspartate Amino Transf (AST/SGOT) 35 U/L (15-37) Alanine Aminotransferase (ALT/SGPT) 52 U/L (12-78) Alkaline Phosphatase 96 U/L (45-117) Troponin I < 0.015 ng/ml (0-0.045) Pro-B-Type Natriuretic Peptide 28 pg/ml (0-900) Total Protein 6.8 gm/dl (6.4-8.2) Albumin 3.2 gm/dl (3.4-5.0) Globulin 3.6 gm/dl (2.5-4.0) Albumin/Globulin Ratio 0.9 (0.9-2) Urine Color YELLOW Urine Appearance CLOUDY (CLEAR) Urine pH 8.0 (4.5-7.5) Urine Specific [place] 1.013 (1.000-1.030) Urine Protein NEG (NEG) Urine Glucose (UA) NEG (NEG) Urine Ketones NEG (NEG) Urine Occult Blood NEG (NEG) Urine Nitrite NEG (NEG) Urine Bilirubin NEG (NEG) Urine Urobilinogen NEG (NEG) Urine Leukocyte Esterase NEG (NEG) Urine WBC (Auto) 1-5 /hpf (0-5) Urine RBC (Auto) 0-4 /hpf (0-4) Urine Hyaline Casts (Auto) 0 /lpf (0-5) Urine Epithelial Cells (Auto) 10-20 /lpf (0-5) Urine Bacteria (Auto) NEG (NEG) Bedside D-Dimer 397 ng/mlFEU (0-450) Medications Administered Medications (Trade) Dose Ordered Sig/Carlin Route Start Time Stop Time Status Last Admin Dose Admin Ibuprofen (Advil Tab) 400 mg NOW STAT PO 09/15/17 17:41 09/15/17 17:42 DC 09/15/17 18:02 400 MG Alprazolam (Xanax Tab) 0.5 mg NOW STAT PO 09/15/17 18:20 09/15/17 18:21 DC 09/15/17 19:10 0.5 MG ECG Indication: SOB/dyspnea Rate (beats per minute): 90 Rhythm: normal sinus Findings: no acute ischemic change, no ectopy Change: no significant change (when compared to EKG from 08/31/2017) Medical Decision CC: Patient presenting with complaint of bilateral leg swelling, shortness of breath Interpretation of Labs: No leukocytosis, no anemia, no significant electrolyte abnormalities, normal renal function, normal liver enzymes. Negative d-dimer. Negative troponin, pro-BNP within normal limits. UA negative. Differential Diagnosis: Includes, but not limited to CHF, COPD, viral URI, bronchitis, asthma exacerbation, pneumonia, PE, acute kidney injury, liver failure, electrolyte abnormality, anxiety, among others. Medication Reconciliation: I attest that I have personally reviewed the patient' s current medication list. Initial vital signs review: I reviewed the patient's vital signs and interpret them as follows: T: Afebrile; BP: Hypertensive; HR: Tachycardic; RR: Tachypneic; Pulse Ox: Within normal limits on room air. Blood pressure screening: The patient was found to have an elevated blood pressure, this was felt to be situational. Summary: Patient was evaluated at bedside, history and physical exam performed. Patient is alert and oriented, in no acute distress but does appear mildly anxious, sitting in the stretcher. Lungs are clear to auscultation, no wheezes, rhonchi, or crackles heard. Good air movement. Patient states multiple times that she has been feeling very anxious, she is asking for something for her anxiety, and notes "they usually give me something that starts with a D." EKG reviewed at bedside, this shows normal sinus rhythm with no acute ischemic changes and unchanged from previous EKG by my interpretation. Patient does complain of bilateral calf tenderness on exam. There is no discernible pitting edema of the lower extremities. Given patient's complaint of calf pain and shortness of breath, will assess for DVT with bilateral venous duplex, and d-dimer Orders were placed at bedside for labs, UA, chest x-ray to evaluate for cardiopulmonary disease. Patient discussed with Dr. Ortega, who agrees with my assessment and plan. Labs reviewed as above, unremarkable. Specifically, negative d-dimer, negative troponin, and negative pro-BNP. Chest x-ray reviewed, shows no acute abnormality, no evidence of pulmonary edema or pneumonia. Patient did request ibuprofen for headache which was ordered. She also again requested something for anxiety, she was given her home dose of Xanax. Venous ultrasound reviewed, no evidence of DVT bilaterally. This negative results along with a negative d-dimer is reassuring that she does not have a PE. There is no evidence on lab work, EKG, or chest x-ray for acute coronary syndrome or congestive heart failure. Patient reassessed multiple times throughout ED stay, patient reports she is feeling much improved after receiving the Xanax. She states she no longer feels short of breath. Tachycardia and hypertension are also resolved. I suspect symptoms may be related to anxiety. I discussed all results with the patient and plan for discharge, I did encourage her to continue wearing her compression stockings as these seem to be helping her leg swelling. I did also encourage her to follow closely with her primary care provider for further evaluation. The patient was also given strict return precautions should her symptoms worsen , she verbalized understanding. A was discharged home in stable condition and they have depilatory. Impression Primary Impression: Leg swelling Departure Information Dispostion Home / Self-Care Condition GOOD Referrals Maxine Edwards M.D. (MEDICAL) (PCP) Patient Instructions ED Leg Swelling Bilateral, My [facility] Additional Instructions You were evaluated in the emergency department today for your shortness of breath and leg swelling. Lab testing and imaging results today do not indicate a need for hospitalization or surgery. To help reduce swelling in your legs, continue to wear your compression stockings. You should put these on as soon as you wake up from sleep before you get up and walk around. You should keep your legs elevated as much as possible to help reduce swelling as well. Continue to take all medications as prescribed. Please follow-up with your primary care provider in the next few days for reevaluation of your symptoms. Please return to the emergency department for any worsening symptoms, including chest pain, worsening shortness of breath, severe dizziness or passing out, coughing up blood, fevers > 101.5, worsening swelling of your legs, or any other concerns. Work Instructions Return To Work: 3 days
--- NOTE | 2017-09-15 19:09 | DIAGNOSTIC IMAGING REPORT ---
BILATERAL LOWER EXTREMITY VENOUS DOPPLER HISTORY: bilat leg swelling, eval DVT COMPARISON STUDY: None. FINDINGS: There is normal compressibility, flow, and augmentation within the bilateral lower extremity deep venous systems. IMPRESSION: No DVT within the right or left lower extremity. Electronically signed by: Isaiah Andrade M.D. 09/15/2017 7:08 PM Dictated Date/Time: 09/15/2017 7:05 PM
--- NOTE | 2017-09-15 19:31 | DIAGNOSTIC IMAGING REPORT ---
CHEST 2 VIEWS ROUTINE HISTORY: EVALUATE RESPIRATORY DISTRESS.DYSPNEA COMPARISON: Chest 08/31/2017. FINDINGS: No pleural effusions. No pneumothorax. There are low lung volumes. Left basilar linear densities remain stable and likely represent subsegmental atelectasis or scarring. No new focal lung consolidations. No evidence for pulmonary edema. The heart is normal in size. Cholecystectomy. IMPRESSION: No significant change compared to the prior study. No acute process. Electronically signed by: Isaiah Andrade M.D. 09/15/2017 7:30 PM Dictated Date/Time: 09/15/2017 7:28 PM
[2017-09-15 21:36] VITALS: BP 128/90; PULSE 84; O2SAT 96
== END 2017-09-15 21:47 | disposition home or self-care (01) ==
LOC: C.EDB 15:04 → C.EDC 21:47
DX: R60.9 Edema, unspecified (principal); J45.909 Unspecified asthma, uncomplicated; F31.9 Bipolar disorder, unspecified; K21.9 Gastro-esophageal reflux disease without esophagitis; E78.5 Hyperlipidemia, unspecified; I10 Essential (primary) hypertension; Z82.49 Family history of ischemic heart disease and other diseases of the circulatory system; F17.200 Nicotine dependence, unspecified, uncomplicated

== ENCOUNTER 2017-12-15 08:52 | Emergency (ER) | payer OTHER ==
[~2017-12-15] VITALS: Ht 157.5 cm; Wt 107.1 kg
[~2017-12-15 08:52] MED LIST changes: +ALBINS/ INH; +ALPR1TAB3 PO; +ATRINSX NEB; +AZEL30SP NAE; +BUPR100T8 PO; +BUPR75TA20 PO; +DICL1GEL12 PO; +DXP/75 PO; +FRS/40 PO; +GABA800T PO; +GDN/80 PO; +IPRA1AER2 INH; +MOME200A INH; +MONT1TAB3 PO; +PANT40TA PO; +STR40 PO; +TOPI50TA16 PO; +VENL1CAP92 PO; +ZIPR60CA PO
[2017-12-15 08:58] VITALS: TEMP 36.9; Ht 157.5 cm; Wt 107.1 kg
[2017-12-15] MEDS ORDERED: METOCLOPRAMIDE HCL INJ 5 MG/ML 2 ML VIAL IV. STA (09:30)
[2017-12-15] MEDS ORDERED: SODIUM CHLORIDE 0.9% 500ML 500 ML IV STA (09:30)
[2017-12-15] MEDS ORDERED: DiphenhydrAMINE HCL 50 MG/ML VIAL IV STA (09:30)
--- NOTE | 2017-12-15 09:35 | EMERGENCY ROOM VISIT NOTE ---
History Report prepared by Ernestineibanayeli: Rosana Ching Under the Supervision of: Dr. Orion Alexandre M.D. First contact with patient: 09:05 Chief Complaint: HEADACHE Stated Complaint: NUMBNESS LEFT ARM, HAND FACE SINCE 2AM History of Present Illness The patient is a 52 year old white female with a past medical history of anxiety , asthma, HTN and migraine headaches who presents to the ED with a cc of persistent numbness in her left arm, left hand and face beginning at 0200 this morning. She states she was at work when the symptoms started. She works as a RECREATION THERAPIST and denies any recent injury or strenuous activity. Positive headache, nausea, shortness of breath. Negative chest pain. Inhalers provided good relief for her shortness of breath. The patient reports she underwent an echocardiogram "not too long ago" and states "it came back perfect". She notes she did recently undergo some medication changes for her anxiety, and is unsure if that is related to her symptoms. Source of History: patient Onset: 0200 this morning Position: head (face), arm (left), hand (left) Quality: numbness Timing: other (persistent) Associated Symptoms: + headache, + SOB, + nausea, No chest pain Review of Systems See HPI for pertinent positives and negatives. A total of ten systems were reviewed and were otherwise negative. Past Medical & Surgical Medical Problems: (1) Asthma (2) Bipolar I disorder (3) Esophageal Reflux (4) Hyperlipidemia Nec/Nos (5) Hypertension Nos (6) Migraine Unspecified W/O Intractable Migraine Surgical Problems: (1) Status post left hip replacement Family History Heart disease Social History Smoking Status: Current Every Day Smoker Alcohol Use: none Drug Use: none Marital Status: Housing Status: lives with family Occupation Status: employed Current/Historical Medications Scheduled Alprazolam (Xanax), 0.5 MG PO BID Atomoxetine (Strattera), 40 MG PO DAILY Azelastine Hcl-Fluticasone Pro (Dymista), 2 SPRY CARLENE BID Bupropion (Wellbutrin), 75 MG PO QAM Bupropion (Wellbutrin Sr), 100 MG PO QAM Doxepin Hcl (Doxepin), 75 MG PO HS Gabapentin (Neurontin), 800 MG PO TID Medroxyprogesterone Acetate (C (Medroxyprogesterone Aceta), 150 MG IM Q3M Mometasone Furoate-Formoterol (Dulera 200/5 Mcg), 2 PUFFS INH BID Montelukast Sodium (Singulair), 10 MG PO HS Pantoprazole (Protonix), 40 MG PO BID Topiramate (Topamax), 50 MG PO QAM Topiramate (Topamax), 100 MG PO HS Venlafaxine Hcl (Effexor Xr), 37.5 MG PO DAILY Ziprasidone Hcl (Geodon), 80 MG PO QPM Ziprasidone Hcl (Geodon), 60 MG PO QAM Scheduled PRN Albuterol Sulf (Proventil 0.083% 2.5MG/3ML), 2.5 MG INH QID PRN for Wheezing Diclofenac Sodium (Topical) (Voltaren 1% Top Gel), 4 GM PO QID PRN for Pain Furosemide (Lasix), 40 MG PO UD PRN for SWELLING Ipratropium [place] (Atrovent 0.02% Soln), 1 DOSE NEB QID PRN for Wheezing Ipratropium-Albuterol (Combivent Respimat), 2 PUFFS INH Q4 PRN for Wheezing Allergies Coded Allergies: Sulfa Drugs (Verified Allergy, Severe, ANAPHYLAXIS, 08/31/17) Morphine (Unverified Allergy, Intermediate, EXTREME ITCHING, 08/31/17) Adhesives (Verified Allergy, Unknown, UNKNOWN, 08/31/17) Meperidine (Verified Allergy, Unknown, 08/31/17) Nicotine (Verified Allergy, Unknown, FROM NICOTINE PATCH, 08/31/17) Oxycodone (Verified Allergy, Unknown, TYLOX, 08/31/17) Sumatriptan (Verified Allergy, Unknown, ANAPHYLAXIS, 08/31/17) Amoxicillin (Verified Adverse Reaction, Severe, GI SYMPTOMS, 08/31/17) Clavulanic Acid (Verified Adverse Reaction, Severe, GI SYMPTOMS, 08/31/17) Milk Protein Extract (Verified Adverse Reaction, Severe, UNABLE TO URINATE , 08/31/17) Tiotropium (Verified Adverse Reaction, Severe, UNABLE TO URINATE, 08/31/17) Uncoded Allergies: OPIATE ANTAG (Allergy, Unknown, OXYCODONE, 09/20/09) Physical Exam Vital Signs Date Time Temp Pulse Resp B/P (MAP) Pulse Ox O2 Delivery O2 Flow Rate FiO2 12/15/17 11:21 84 20 119/80 99 12/15/17 10:55 81 24 128/73 98 Room Air 12/15/17 09:43 99 Room Air 12/15/17 09:12 88 12/15/17 08:58 36.9 89 20 132/83 97 Room Air Physical Exam GENERAL: Awake, alert, well-appearing, NAD HENT: Normocephalic, atraumatic. EYES: Normal conjunctiva. Sclera non-icteric. PERRL 5 mm bilaterally. No anisocoria. NECK: Supple. No nuchal rigidity. FROM. RESPIRATORY: CTAB, no rhonchi, wheezing, crackles CARDIAC: RRR, no MRG ABDOMEN: Soft, NTND, BS+ MSK: No chest wall TTP, no LE edema NEURO: CN 2-12 intact, 5/5 upper and lower extremity strength, no dysmetria, no drift, good finger to nose, no sensory deficits. Finger count grossly normal. SKIN: No rash or jaundice noted. Medical Decision & Procedures ER Provider Diagnostic Interpretation: Radiology results as stated below per my review and radiologist interpretation: CHEST ONE VIEW PORTABLE CLINICAL HISTORY: Chest pain. Left arm numbness. COMPARISON STUDY: Chest radiograph September 15, 2017. FINDINGS: Lung volumes are diminished. This is unchanged. Cholecystectomy clips are noted. No pneumothorax or pleural effusion is noted. Linear left midlung opacity favors atelectasis or scarring. There is no consolidation to suggest pneumonia and there is no evidence for pulmonary edema. Cardiomediastinal silhouette is unremarkable. IMPRESSION: No acute cardiopulmonary findings. No change in appearance of the chest. Electronically signed by: Matthew Mahmood M.D. 12/15/2017 9:[address] OF THE HEAD WITHOUT CONTRAST CLINICAL HISTORY: Headache. Left arm numbness. COMPARISON STUDY: No previous studies for comparison. CT DOSE: 537.48 mGy.cm TECHNIQUE: Helical axial images of the head were obtained without IV contrast. Automated exposure control was utilized for the study. A dose lowering technique was utilized adhering to the principles of ALARA. FINDINGS: No acute intracranial hemorrhage, midline shift or mass effect is present. Ventricular system is normal. Basilar cisterns are patent. There are no extra-axial collections. Emerson-white differentiation is maintained. There are no findings to suggest acute dural sinus thrombosis or acute territorial infarct. There are no significant calvarial abnormalities. Visualized portions of the sinuses and the mastoid air cells are clear. IMPRESSION: No acute intracranial findings. Electronically signed by: Matthew Mahmood M.D. 12/15/2017 10:40 AM Laboratory Results 12/15/17 09:25 Red Blood Count 4.72, Mean Corpuscular Volume 90.0, Mean Corpuscular Hemoglobin 31.6, Mean Corpuscular Hemoglobin Concent 35.1, Mean Platelet Volume 12.2, Neutrophils (%) (Auto) 68.5, Lymphocytes (%) (Auto) 24.4, Monocytes (%) (Auto) 6.3, Eosinophils (%) (Auto) 0.4, Basophils (%) (Auto) 0.2, Neutrophils # (Auto) 7.11, Lymphocytes # (Auto) 2.53, Monocytes # (Auto) 0.65, Eosinophils # (Auto) 0.04, Basophils # (Auto) 0.02 12/15/17 09:25 Test 12/15/17 09:25 White Blood Count 10.37 K/uL (4.8-10.8) Red Blood Count 4.72 M/uL (4.2-5.4) Hemoglobin 14.9 g/dL (12.0-16.0) Hematocrit 42.5 % (37-47) Mean Corpuscular Volume 90.0 fL (80-100) Mean Corpuscular Hemoglobin 31.6 pg (25-34) Mean Corpuscular Hemoglobin Concent 35.1 g/dl (32-36) Platelet Count 258 K/uL (130-400) Mean Platelet Volume 12.2 fL (7.4-10.4) Neutrophils (%) (Auto) 68.5 % Lymphocytes (%) (Auto) 24.4 % Monocytes (%) (Auto) 6.3 % Eosinophils (%) (Auto) 0.4 % Basophils (%) (Auto) 0.2 % Neutrophils # (Auto) 7.11 K/uL (1.4-6.5) Lymphocytes # (Auto) 2.53 K/uL (1.2-3.4) Monocytes # (Auto) 0.65 K/uL (0.11-0.59) Eosinophils # (Auto) 0.04 K/uL (0-0.5) Basophils # (Auto) 0.02 K/uL (0-0.2) RDW Standard Deviation 42.4 fL (36.4-46.3) RDW Coefficient of Variation 12.9 % (11.5-14.5) Immature Granulocyte % (Auto) 0.2 % Immature Granulocyte # (Auto) 0.02 K/uL (0.00-0.02) Prothrombin Time 10.5 SECONDS (9.0-12.0) Prothromb Time International Ratio 1.0 (0.9-1.1) Activated Partial Thromboplast Time 25.1 SECONDS (21.0-31.0) Partial Thromboplastin Ratio 1.0 Anion Gap 8.0 mmol/L (3-11) Est Creatinine Clear Calc Drug Dose 66.6 ml/min Estimated GFR () 63.8 Estimated GFR (Non- 55.0 BUN/Creatinine Ratio 9.0 (10-20) Calcium Level 8.5 mg/dl (8.5-10.1) Total Bilirubin 0.4 mg/dl (0.2-1) Direct Bilirubin 0.1 mg/dl (0-0.2) Aspartate Amino Transf (AST/SGOT) 18 U/L (15-37) Alanine Aminotransferase (ALT/SGPT) 28 U/L (12-78) Alkaline Phosphatase 128 U/L (45-117) Troponin I < 0.015 ng/ml (0-0.045) Pro-B-Type Natriuretic Peptide 123 pg/ml (0-900) Total Protein 7.7 gm/dl (6.4-8.2) Albumin 3.8 gm/dl (3.4-5.0) Lipase 219 U/L (73-393) Laboratory results reviewed by me Medications Administered Medications (Trade) Dose Ordered Sig/Carlin Route Start Time Stop Time Status Last Admin Dose Admin Metoclopramide HCl (Reglan Inj) 10 mg NOW STAT IV. 12/15/17 09:30 12/15/17 09:33 DC 12/15/17 09:53 10 MG Diphenhydramine HCl (Benadryl Inj) 25 mg NOW STAT IV 12/15/17 09:30 18 09:33 DC 12/15/17 09:53 25 MG Sodium Chloride 500 ml @ 999 mls/hr Q31M STAT IV 12/15/17 09:30 5/2/18 10:00 DC 12/15/17 09:55 999 MLS/HR ECG Per My Interpretation Indication: weakness Rate (beats per minute): 88 Rhythm: sinus rhythm Findings: other (normal intervals, normal axis, T-wave flattening anteriorly) Change: no significant change (EKG is unchanged when compared to EKG from August 2017) ED Course 0924: The patient was evaluated in room B12. A complete history and physical exam was performed. 1046: I reevaluated the patient. She is feeling well and resting comfortably. I discussed her results and discharge instructions and she verbalized complete understanding and agreement. Medical Decision The patient is a 52 year old white female with a past medical history of anxiety , asthma, HTN and migraine headaches who presents to the ED with a cc of numbness in her left arm, left hand and face beginning at 0200 this morning. Triage Nursing notes reviewed. The patient's presentation and history were concerning for weakness. Etiologies such as metabolic, infection, hypo/hyperglycemia, electrolyte abnormalities, cardiac sources, intracerebral event, toxicologic, neurologic, cardiac ischemia, aortic dissection, pulmonary embolism, pneumonia, pneumothorax , musculoskeletal, infections, pericarditis, myocarditis, esophageal rupture as well as others were entertained. Nursing notes reviewed. Ancillary studies and prior records reviewed. Patient was seen and evaluated the bedside. Patient was complaining of some mild headache which is improved as well as some decreased sensation to the left arm right hand and midface. Patient does have history of anxiety was recently changed his medications. Patient has had some recent stresses with regard to her significant other has had some lung issues. The patient otherwise mentions some chest discomfort but it does not exertional in nature. Patient has no reproducible discomfort. Patient did blood work completed, EKG, troponin, chest x-ray. Chest x-ray is clear. CT brain negative. Patient's EKG is fairly unchanged from prior. Troponin negative. Given the patient's history and physical exam the primary complaint less likely ACS given fairly unchanged EKG compared to August with an undetectable troponin. Patient's other blood work is fairly unremarkable. Patient does have a heart score of 4 given the patient's comorbidities but given the unsuspicious nature, unchanged EKG with a negative troponin I believe this less likely. Patient will score of 0 is likely PE. Upon reassessment of the patient the patient was feeling improved headache is resolved. I do not believe that she is having some sort of dissection and she did not have true numbness as she was able to feel pressure and pain and proprioception of the bilateral upper extremities. This may be more anxiety related. Patient was deemed suitable for outpatient follow-up and treatment at this time. Patient was given strict follow-up, discharge, and return precautions. All questions were answered. Patient was deemed suitable for outpatient follow-up at this time. Patient agreed with the plan of care and was safely discharged home. Medication Reconcilliation Current Medication List: was personally reviewed by me Blood Pressure Screening Patient's blood pressure: Normal blood pressure Blood pressure disposition: Did not require urgent referral Impression Primary Impression: Headache Additional Impressions: Hypokalemia Encounter for smoking cessation counseling Scribe Attestation The scribe's documentation has been prepared under my direction and personally reviewed by me in its entirety. I confirm that the note above accurately reflects all work, treatment, procedures, and medical decision making performed by me. Departure Information Dispostion Home / Self-Care Referrals Maxine Edwards M.D. (MEDICAL) (PCP) Patient Instructions Hypokalemia Wi, My [facility] Additional Instructions Please return to the emergency department if you have worsening or recurrent symptoms not amenable to at-home treatment. Please call for a follow-up appointment with her primary care physician. Please take your medications as prescribed. If you have other concerns and/or complaints please feel free to also call your primary care physician's office or return the ED for further evaluation, management, and treatment. You may take 800 mg Ibuprofen every 6 hours as needed for pain/fever with food unless told by your physician not to take NSAIDs. You may take tylenol 1000 mg every 6 hours as needed for pain/fever unless told by your physician to not take it or have liver problems. You may take motrin and tylenol separately or at the same time. Take your medications as prescribed. You have been examined and treated today on an emergency basis only. This is not a substitute for, or an effort to provide, complete comprehensive medical care. It is impossible to recognize and treat all injuries or illnesses in a single emergency department visit. It is therefore important that you follow up closely with [facility], your PCP, and/or your specialist(s). Call as soon as possible for an appointment. Thank you for your time and consideration. I look forward to speaking with you again soon. Please don't hesitate to call us if you have any questions. Problem Qualifiers Primary Impression: Headache Headache type: unspecified Headache chronicity pattern: acute headache Intractability: not intractable Qualified Codes: R51 - Headache
[2017-12-15 09:43] VITALS: O2SAT 99
[2017-12-15 09:43] LABS: BASO % 0.2 %; BASO ABS # 0.02 K/uL (0-0.2); EOS % 0.4 %; EOS ABS # 0.04 K/uL (0-0.5); HEMATOCRIT 42.5 % (37-47); HEMOGLOBIN 14.9 g/dL (12.0-16.0); IG# 0.02 K/uL (0.00-0.02); LYMPH % 24.4 %; LYMPH ABS # 2.53 K/uL (1.2-3.4); MEAN CORPUSCULAR HEMOGLOBIN 31.6 pg (25-34); MEAN CORPUSCULAR HGB CONC 35.1 g/dl (32-36); MEAN PLATELET VOLUME 12.2 fL (7.4-10.4); MONO % 6.3 %; MONO ABS # 0.65 K/uL (0.11-0.59); NEUT % 68.5 %; NEUT ABS # 7.11 K/uL (1.4-6.5); PLATELET COUNT 258 K/uL (130-400); RED CELL DISTRIBUTION WIDTH CV 12.9 % (11.5-14.5); RED CELL DISTRIBUTION WIDTH SD 42.4 fL (36.4-46.3); WHITE BLOOD COUNT 10.37 K/uL (4.8-10.8)
[2017-12-15 09:49] LABS: PTT PATIENT 25.1 SECONDS (21.0-31.0)
--- NOTE | 2017-12-15 09:51 | DIAGNOSTIC IMAGING REPORT ---
CHEST ONE VIEW PORTABLE CLINICAL HISTORY: Chest pain. Left arm numbness. COMPARISON STUDY: Chest radiograph September 15, 2017. FINDINGS: Lung volumes are diminished. This is unchanged. Cholecystectomy clips are noted. No pneumothorax or pleural effusion is noted. Linear left midlung opacity favors atelectasis or scarring. There is no consolidation to suggest pneumonia and there is no evidence for pulmonary edema. Cardiomediastinal silhouette is unremarkable. IMPRESSION: No acute cardiopulmonary findings. No change in appearance of the chest. Electronically signed by: Matthew Mahmood M.D. 12/15/2017 9:50 AM Dictated Date/Time: 12/15/2017 9:49 AM
[2017-12-15 09:56] LABS: ALBUMIN 3.8 gm/dl (3.4-5.0); ALT/SGPT 28 U/L (12-78); AST/SGOT 18 U/L (15-37); BLOOD UREA NITROGEN 10 mg/dl (7-18); CALCIUM 8.5 mg/dl (8.5-10.1); CARBON DIOXIDE 24 mmol/L (21-32); CREATININE 1.15 mg/dl (0.60-1.20); GLUCOSE 99 mg/dl (70-99); LIPASE 219 U/L (73-393); SODIUM 141 mmol/L (136-145)
[2017-12-15 10:02] LABS: ALKALINE PHOSPHATASE 128 U/L (45-117); TOTAL PROTEIN 7.7 gm/dl (6.4-8.2)
--- NOTE | 2017-12-15 10:41 | DIAGNOSTIC IMAGING REPORT ---
CT OF THE HEAD WITHOUT CONTRAST CLINICAL HISTORY: Headache. Left arm numbness. COMPARISON STUDY: No previous studies for comparison. CT DOSE: 537.48 mGy.cm TECHNIQUE: Helical axial images of the head were obtained without IV contrast. Automated exposure control was utilized for the study. A dose lowering technique was utilized adhering to the principles of ALARA. FINDINGS: No acute intracranial hemorrhage, midline shift or mass effect is present. Ventricular system is normal. Basilar cisterns are patent. There are no extra-axial collections. Emerson-white differentiation is maintained. There are no findings to suggest acute dural sinus thrombosis or acute territorial infarct. There are no significant calvarial abnormalities. Visualized portions of the sinuses and the mastoid air cells are clear. IMPRESSION: No acute intracranial findings. Electronically signed by: Matthew Mahmood M.D. 12/15/2017 10:40 AM Dictated Date/Time: 12/15/2017 10:17 AM
[2017-12-15 11:21] VITALS: BP 119/80; PULSE 84; O2SAT 99
== END 2017-12-15 11:22 | disposition home or self-care (01) ==
LOC: C.EDB 08:53
DX: R51 Headache (principal); E87.6 Hypokalemia; Z71.6 Tobacco abuse counseling; F41.9 Anxiety disorder, unspecified; J45.909 Unspecified asthma, uncomplicated; I10 Essential (primary) hypertension; F31.9 Bipolar disorder, unspecified; K21.9 Gastro-esophageal reflux disease without esophagitis; Z96.649 Presence of unspecified artificial hip joint; F17.210 Nicotine dependence, cigarettes, uncomplicated; Z79.899 Other long term (current) drug therapy; Z88.2 Allergy status to sulfonamides; Z88.5 Allergy status to narcotic agent; Z88.8 Allergy status to other drugs, medicaments and biological substances; Z88.0 Allergy status to penicillin; Z91.011 Allergy to milk products; Z91.048 Other nonmedicinal substance allergy status

== ENCOUNTER → 2018-03-08 | Outpatient (CLI) | payer OTHER ==
[~2018-03-08] MED LIST changes: -VENL1CAP92 PO; +VENL37.52 PO
--- NOTE | 2018-03-08 09:28 | DIAGNOSTIC IMAGING REPORT ---
CHEST 2 VIEWS ROUTINE CLINICAL HISTORY: Shortness of breath. COMPARISON STUDY: Chest radiograph December 15, 2017. FINDINGS: Incidental note is made of cholecystectomy clips. No pneumothorax or pleural effusion is noted. No evidence for pulmonary edema. Linear left basilar opacity suggests atelectasis. Cardiac size is normal. Mediastinal contours are normal. IMPRESSION: No acute cardiopulmonary findings. No change in appearance of the chest. Electronically signed by: Matthew Mahmood M.D. 03/08/2018 9:26 AM Dictated Date/Time: 03/08/2018 9:25 AM
== END | disposition home or self-care (01) ==
LOC: C.LAB1850 09:10
PROVIDERS: ATTEND Physician Assistant
DX: R06.02 Shortness of breath (principal)

== ENCOUNTER 2018-10-11 10:22 | Inpatient (IN) ==
[2018-10-11] MEDS ORDERED: SODIUM CHLORIDE 0.9% 500 ML IV SCH (10:45)
[2018-10-11] MEDS ORDERED: ALBUT/IPRATROP 3MG/0.5MG NEB 3 ML VIAL NEB ONE (10:46)
[2018-10-11] MEDS ORDERED: methylPREDNISolone 125 MG/2 ML VIAL IV STA (10:46)
--- NOTE | 2018-10-11 10:59 | XRay Report ---
XR chest 1V portable HISTORY: 53 years-old Female Chest Pain acute atypical chest pain COMPARISON: Chest and rib radiographs 10/06/2017 TECHNIQUE: Portable AP view of the chest FINDINGS: Cardiac silhouette is enlarged, unchanged. Pulmonary vascular congestion with progressively worsened bilateral mixed interstitial and alveolar opacities. The lungs are hypoinflated. Chronic right hemidi aphragmatic elevation. Linear subsegmental opacities about the lateral left midlung redemonstrated yadav ggestive of atelectasis or scarring. There is no pneumothorax or large pleural effusion. Chronic right-sided rib fractures. Cholecystectomy clips noted. Degenerative changes of the shoulders and spine with right shoulder rotator cuff calcific tendinosis. IMPRESSION: 1. Cardiomegaly with progressively worsened mixed interstitial and alveolar opacities suggestive of p ulmonary edema and/or multifocal pneumonitis. 2. Hypoinflated lungs with unchanged right hemidiaphragm elevation. The above report was generated using voice recognition software. It may contain grammatical, syntax o r spelling errors. Electronically signed by: Fabio Kothari M.D. 10/11/2018 10:58 AM
[2018-10-11 11:47] LABS: Basophils # (auto) 0.02 K/uL (0-0.2); Basophils % (auto) 0.2 %; Eosinophils # (auto) 0.05 K/uL (0-0.5); Eosinophils % (auto) 0.4 %; Hematocrit (blood only) 38.5 % (37-47); Hemoglobin 12.7 g/dL (12.0-16.0); Immature Granulocytes # (auto) 0.04 K/uL (0.00-0.02); Immature Granulocytes % (auto) 0.3 %; Lymphocytes # (auto) 2.41 K/uL (1.2-3.4); Lymphocytes % (auto) 18.2 %; Mean Corpuscular Volume 92.8 fL (80-100); Mean Platelet Volume 11.9 fL (7.4-10.4); Monocytes # (auto) 1.23 K/uL (0.11-0.59); Monocytes % (auto) 9.3 %; Neutrophils # (auto) 9.46 K/uL (1.4-6.5); Neutrophils % (auto) 71.6 %; Platelet Count 244 K/uL (130-400); RDW Coefficient of Variation 13.5 % (11.5-14.5); RDW Standard Deviation 46.2 fL (36.4-46.3); Red Blood Count 4.15 M/uL (4.2-5.4); White Blood Count 13.21 K/uL (4.8-10.8)
[2018-10-11 11:54] LABS: Influenza B virus by PCR Neg for Influ B (Neg)
[2018-10-11 12:07] LABS: Alanine Aminotransferase 38 U/L (12-78); Albumin Level 2.6 gm/dl (3.4-5.0); Aspartate Aminotransferase 26 U/L (15-37); BUN Creatinine Ratio 17.1 (10-20); Blood Urea Nitrogen 14 mg/dl (7-18); Calcium 8.2 mg/dl (8.5-10.1); Carbon Dioxide 25 mmol/L (21-32); Chloride 112 mmol/L (98-107); Creatinine Clr Calc Pharmacy 99.6 ml/min; Est GFR (African American) 98.2; Est GFR (Non-African American) 84.8; Glucose 113 mg/dl (70-99); Potassium 3.6 mmol/L (3.5-5.1); Sodium 142 mmol/L (136-145)
[2018-10-11 12:12] LABS: Albumin Globulin Ratio 0.6 (0.9-2); Alkaline Phosphatase 132 U/L (45-117); Bilirubin,Total 0.5 mg/dl (0.2-1); Globulin 4.1 gm/dl (2.5-4.0); Total Protein 6.7 gm/dl (6.4-8.2); Troponin I < 0.015 ng/ml (0-0.045)
[2018-10-11] MEDS ORDERED: OSELTAMIVIR PHOSPHATE 75 MG CAP PO STA (12:38)
--- NOTE | 2018-10-11 15:23 | History & Physical Report ---
Date of Service October 11, 2018 Assessment & Plan (1) Acute respiratory failure with hypoxia: This is a 53yo F with a PMH of asthma/COPD, current tobacco use, bipolar disorder, h/o migraines, GERD and other medical problems listed below who presents with worsening shortness of breath since yesterday and was found to have acute hypoxic respiratory failure in the setting of Influenza A, PNA and asthma exacerbation. -Hypoxic at 85% in ED upon ambulation -In setting of positive Flu A, asthma exacerbation, likely PNA -Continue supplemental O2 to maintain SaO2 at or above 92% (2) Influenza A: Flu A PCR is positive -Continue Tamiflu, Tessalon perles, Mucinex DM -Received 1 L NSS in ED -Droplet precautions (3) Community acquired pneumonia: CXR with cardiomegaly with progressively worsened mixed interstitial and alveolar opacities suggestive of pulmonary edema and/or multifocal pneumonitis -Has been treated as out-patient for bronchitis/PNA with azithromycin, doxycycline in August -Treat with Rocephin, PO Doxycycline for now -Blood cultures pending. Procalcitonin is normal, so sepsis is unlikely -BNP normal, no peripheral edema so unlikely to be congestive heart failure -Consider pulm consult if clinically worsens (4) Asthma exacerbation with COPD (chronic obstructive pulmonary disease): Diffuse wheezing on lung exam -Given 125mg solumedrol in ED. Will continue IV solumedrol with 40mg Q8H -Continue Duonebs QIDR and home inhalers (5) Bipolar I disorder: (6) Mood disorder: Follows with Dr. Gardner at [facility]. Medications confirmed today with out-patient record -Continue home dose Seroquel, Topomax, Geodon, Lexapro, Buspar (7) Closed rib fracture: Rib fractures of 7,8,10 recently 2/2 coughing -Continue tylenol PRN, [place] PRN, Meloxicam, Lidoderm patch (8) ADD (attention deficit disorder): Continue Strattera (9) Post-menopausal bleeding: Having light vaginal bleeding for second time this month, saw Dr. Santiago in clinic -Had pelvic ultrasound that showed area of thickening of the endometrium to left midline without focal mass -Short interval follow-up ultrasound is suggested in 3 months (has appt in November ) (10) Insomnia: Continue Remeron (11) History of migraine: Continue propranolol as prophylaxis (12) Tobacco use: Nicotine patch DVT Ppx: SQ Lovenox Code status: FULL PCP: Ania Dispo: Plan to return home once medically stable. Patient seen in collaboration with Dr. Munoz. Please see addendum. History of Present Illness Chief Complaint: SOB Primary Care Provider: Philomena Jorge This is a 53yo F with a PMH of asthma/COPD, current tobacco use, bipolar disorder, h/o migraines, GERD and other medical problems listed below who presents with worsening shortness of breath since yesterday. Has noticed progressively shortness of breath over the past few months, but became significantly more dyspneic yesterday. 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 Also endorses muscle aches, dry cough and nausea. Denies any fever, chills, sore throat, nausea, vomiting or diarrhea. Has been treated for bronchitis and pneumonia over the past few months by both PCP and pulm clinic. Most recently completed course of azithromycin and doxycycline in August. Has history of asthma and has been using duo nebs and inhalers at home. Is still smoking 3/4 pack cigarettes daily, which is a decrease from her previous 2 packs daily. Was seen in ED on Oct 06 and was found to have 3 broken ribs 2/2 coughing. Has been taking [place] for pain, which has been helping. Endorses constipation due to pain medication. In ED today, found to be hypoxic at 85% with ambulation. Positive for Influenza A. Allergies Allergy/AdvReac Type Severity Reaction Status Date / Time Sulfa (Sulfonamide Allergy Severe ANAPHYLAXIS Verified 10/11/18 11:24 Antibiotics) morphine Allergy Intermediate EXTREME Unverified 10/11/18 11:24 ITCHING adhesive Allergy Unknown UNKNOWN Verified 10/11/18 11:24 meperidine Allergy Unknown Verified 10/11/18 11:24 nicotine Allergy Unknown FROM Verified 10/11/18 11:24 NICOTINE PATCH oxycodone Allergy Unknown TYLOX Verified 10/11/18 11:24 sumatriptan Allergy Unknown ANAPHYLAXIS Verified 10/11/18 11:24 amoxicillin AdvReac Severe GI SYMPTOMS Verified 10/11/18 11:24 clavulanic acid AdvReac Severe GI SYMPTOMS Verified 10/11/18 11:24 milk AdvReac Severe UNABLE TO Verified 10/11/18 11:24 URINATE tiotropium AdvReac Severe UNABLE TO Verified 10/11/18 11:24 URINATE venlafaxine AdvReac Severe Nightmare Unverified 10/11/18 11:24 OPIATE ANTAG Allergy Unknown OXYCODONE Uncoded 10/11/18 11:24 Home Medications Home Medications Medication Instructions Recorded Confirmed Type albuterol sulfate 2.5 mg INHALATION QID 10/06/18 10/11/18 History benzonatate [Tessalon Perles] 100 mg PO TID PRN 10/06/18 10/11/18 History budesonide-formoterol [Symbicort] 1 puff INHALATION BID 10/06/18 10/11/18 History cyclobenzaprine 10 mg PO HS PRN 10/06/18 10/11/18 History dextromethorphan-guaifenesin 1 tab PO Q12H PRN 10/06/18 10/11/18 History [Mucinex DM] diclofenac sodium 4 g TOPICAL QID PRN 10/06/18 10/11/18 History dicyclomine 20 mg PO TID PRN 10/06/18 10/11/18 History escitalopram oxalate [Lexapro] 30 mg PO DAILY 10/06/18 10/11/18 History furosemide [Lasix] 40 mg PO MOWEFR@0900 10/06/18 10/11/18 History lidocaine [Lidoderm] 1 patch TOP DAILY #30 ea 10/06/18 10/11/18 Rx lubiprostone [Amitiza] 24 mcg PO BIDM 10/06/18 10/11/18 History mirtazapine 45 mg PO HS 10/06/18 10/11/18 History montelukast [Singulair] 10 mg PO HS 10/06/18 10/11/18 History multivitamin 1 tab PO DAILY 10/06/18 10/11/18 History nystatin 1 applic TOPICAL BID 10/06/18 10/11/18 History ondansetron 8 mg PO Q8H PRN 10/06/18 10/11/18 History pantoprazole [Protonix] 40 mg PO BID 10/06/18 10/11/18 History potassium chloride [Klor-Con 10] 10 meq PO DAILY 10/06/18 10/11/18 History topiramate [Topamax] 100 mg PO BID 10/06/18 10/11/18 History ziprasidone HCl [Geodon] 80 mg PO BID 10/06/18 10/11/18 History atomoxetine [Strattera] 80 mg PO DAILY 10/11/18 10/11/18 History buspirone 15 mg PO BID 10/11/18 10/11/18 History gabapentin 800 mg PO TID 10/11/18 10/11/18 History hydrocodone-acetaminophen [[place]] 1 tab PO Q6H PRN 10/11/18 10/11/18 History meloxicam [Mobic] 7.5 mg PO DAILY 10/11/18 10/11/18 History propranolol 40 mg PO BID 10/11/18 10/11/18 History quetiapine [Seroquel] 50 mg PO BID 10/11/18 10/11/18 History Past Med/Surg History Medical History Asthma (Chronic) Insomnia (Chronic) Tobacco use (Chronic) ADD (attention deficit disorder) (Chronic) Osteoarthritis (Chronic) GERD (gastroesophageal reflux disease) (Chronic) Asthma exacerbation with COPD (chronic obstructive pulmonary disease) (Chronic) Hypertension (Chronic) Bipolar I disorder (Chronic 05/13/13) Surgical History History of cholecystectomy (Resolved) History of ankle surgery (Resolved) Status post left hip replacement (Resolved) Family History Father Heart failure Diabetes Colon cancer Mother Melanoma Social History Current Living Situation: Spouse Other Information That Helps Us Care for You: No Feels Safe at Home: Yes Safety Concerns: Feels Safe At This Time Smoking Status: Current every day smoker Tobacco Type: cigarettes Do You Dip or Chew Tobacco: No Tobacco Cessation Education Requested by Patient: No Hx Alcohol Use: No Hx Substance Use: No Beliefs That Will Affect Care: None Preferred Language: Luxembourger Communication Ability: Effective Business Process Consultant Required: No Review of Systems Constitutional: + body aches, + weakness and + anorexia; no fever and no chills Eyes: no worsening vision Ear, Nose, Mouth, Throat: no sore throat and no dysphagia Respiratory: + cough, + dyspnea on exertion and + wheezing; no hemoptysis Cardiovascular: no chest pain, no radiating jaw, neck or arm pain, no palpitations, no syncope and no edema Gastrointestinal: + nausea and + constipation; no vomiting and no diarrhea/ loose stools Genitourinary (Female): no dysuria and no hematuria Musculoskeletal: + body aches Integumentary: no rash, no non-healing lesions and no change in skin color Neurologic: no localized weakness, no numbness, no paresthesia, no syncope and no confusion Psychiatric: no behavioral changes Physical Exam 2 Vital Signs (Past 24 Hours): Last Vital Signs Temp 36.4 C L 10/11/18 10:31 Pulse 75 10/11/18 15:12 Resp 20 10/11/18 15:12 BP 142/57 H 10/11/18 15:12 Pulse Ox 95 10/11/18 15:12 Physical Exam: General Appearance: WD/WN, no apparent distress, acute illness Head: normocephalic, atraumatic Eyes: normal inspection, PERRL, EOMI ENT: hearing grossly normal, pharynx normal (moist mucous membranes) Neck: supple, no JVD, no adenopathy Respiratory/Chest: Diffuse wheezing throughout lung wolfe. No rales or rhonchi noted. No respiratory distress or accessory muscle use Saturating at 91 % on 2L NC Cardiovascular: regular rate, rhythm, no murmur, normal peripheral pulses Abdomen/GI: normal bowel sounds, soft, non-tender to palpation Extremities/Musculoskelatal: normal inspection, no calf tenderness, normal capillary refill, trace pedal edema Neurologic/Psych: alert, normal mood/affect, oriented x 3 Skin: normal color, warm/dry Results & Data Laboratory Results Short CBC 10/11/18 Range/Units 11:35 WBC 13.21 H (4.8-10.8) K/uL Hgb 12.7 (12.0-16.0) g/dL Hct 38.5 (37-47) % Plt Count 244 (130-400) K/uL BMP 10/11/18 11:35 Sodium 142 Potassium 3.6 Chloride 112 H Carbon Dioxide 25 BUN 14 Creatinine 0.80 Glucose 113 H Calcium 8.2 L Cardiac Enzymes 10/11/18 Range/Units 11:35 Troponin I < 0.015 (0-0.045) ng/ml Liver Function 10/11/18 Range/Units 11:35 Total Bilirubin 0.5 (0.2-1) mg/dl AST 26 (15-37) U/L ALT 38 (12-78) U/L Alkaline Phosphatase 132 H (45-117) U/L Albumin 2.6 L (3.4-5.0) gm/dl Diagnostic Findings CXR: IMPRESSION: 1. Cardiomegaly with progressively worsened mixed interstitial and alveolar opacities suggestive of pulmonary edema and/or multifocal pneumonitis. 2. Hypoinflated lungs with unchanged right hemidiaphragm elevation. ECG Rhythm: normal sinus Change: no significant change Additional Comments: Nonspecific T wave abnormality, improved in Anterolateral leads, QT has shortened Code Status & VTE Plan Code Status FULL Supervising Physician Co-Signing Physician Notes HISTORY: Record reviewed. Patient interviewed and examined. Care coordinated with Vira Benz PA-C. Please refer to her documentation for patient's history. Briefly, 53-year-old female with history of asthma, tobacco use, and other problems. Presented to ED with cough, wheezing, shortness of breath. EXAM: General- moderate respiratory distress Lungs- diffuse moderate wheezing, tachypneic Cardiovascular- RRR; no murmur; no gallop; no JVD; 1+ pretibial edema Abdomen- + bowel sounds, soft, nontender Extremities- no cyanosis; no calf tenderness Neuro- alert, oriented Skin- warm & dry DATA: Hemoglobin 12.7, white count 13,210, platelet count 244,000. Normal electrolytes, BUN 14, creatinine 0.8, glucose 113. ProBNP 752. [employer] swab PCR + for influenza A. Other lab studies as noted. Chest x-ray reviewed by the undersigned and formally interpreted by Radiology: cardiomegaly, patchy infiltrates, ? pulmonary edema EKG performed at 1100 reviewed and demonstrated normal sinus rhythm at 70/ minute, no acute ST or T wave abnormalities. ASSESSMENT AND PLAN: Exacerbation of asthma with mild hypoxia. Influenza A. Patchy pulmonary infiltrates, possible community acquired pneumonia or other process. CHF unlikely in light of normal proBNP. Initial management will consist of oseltamivir, doxycycline, ceftriaxone, steroids, inhaled bronchodilators. Chest x-ray should be followed to resolution of pulmonary infiltrates. Check CT of chest of pulmonary status does not improve. Consult Pulmonary Medicine if condition worsens or does not improve. Patient reports vaginal bleeding after years of amenorrhea. Outpatient gynecology consultation recommended. Please refer to ISAIAS Benz's documentation for discussion of other issues. ADDENDUM: MRSA nasal screen positive. Contact isolation. Doxycycline should offer pulmonary coverage if pt has MRSA pneumonia; consider IV vancomycin if condition worsens. _ (1) Closed rib fracture Encounter type: initial encounter Fracture healing: Laterality: right Rib fracture type: single rib Qualified Code(s): S22.31XA - Fracture of one rib, right side, initial encounter for closed fracture
--- NOTE | 2018-10-11 16:25 | Emergency Department Note ---
Entered by Purnima Musa acting as a scribe for History of Present Illness General Chief complaint: Shortness of Breath/Dyspnea Stated complaint: SOB Time Seen by Provider: 10/11/18 10:37 Source: patient Mode of arrival: ambulatory Limitations: no limitations History of Present Illness Provider complaint: shortness of breath Onset (ago): hour(s) (last night) Location: chest Pain Consistency: + other (persistent) Maximum Pain Intensity: 10 Current Pain Intensity: 5 Quality: + other (shortness of breath) Relieved By: not by medication Associated symptoms: + nausea/vomiting (nausea, no emesis) and + other ( constipation) Treatments prior to arrival: other (breathing treatment) The patient is a 53 year old female who presents to the Emergency Room with complaints of a persistent shortness of breath that began last night. The patient reports that she has a history of asthma and states that she has been using her breathing treatments but it has not been alleviating her symptoms. She admits to being an everyday smoker but notes she did not smoke much last night. She reports that she smokes half a pack to 3/4 a day at baseline. The patient also states that she has been nauseous and constipated. She notes that she has 3 broken ribs secondary to coughing and reports that she finished her prescribed medication yesterday. Home Medications Home Medications Medication Instructions Recorded Confirmed Type albuterol sulfate 2.5 mg INHALATION QID 10/06/18 10/11/18 History benzonatate [Tessalon Perles] 100 mg PO TID PRN 10/06/18 10/11/18 History budesonide-formoterol [Symbicort] 1 puff INHALATION BID 10/06/18 10/11/18 History cyclobenzaprine 10 mg PO HS PRN 10/06/18 10/11/18 History dextromethorphan-guaifenesin 1 tab PO Q12H PRN 10/06/18 10/11/18 History [Mucinex DM] diclofenac sodium 4 g TOPICAL QID PRN 10/06/18 10/11/18 History dicyclomine 20 mg PO TID PRN 10/06/18 10/11/18 History escitalopram oxalate [Lexapro] 30 mg PO DAILY 10/06/18 10/11/18 History furosemide [Lasix] 40 mg PO MOWEFR@0900 10/06/18 10/11/18 History lidocaine [Lidoderm] 1 patch TOP DAILY #30 ea 10/06/18 10/11/18 Rx lubiprostone [Amitiza] 24 mcg PO BIDM 10/06/18 10/11/18 History mirtazapine 45 mg PO HS 10/06/18 10/11/18 History montelukast [Singulair] 10 mg PO HS 10/06/18 10/11/18 History multivitamin 1 tab PO DAILY 10/06/18 10/11/18 History nystatin 1 applic TOPICAL BID 10/06/18 10/11/18 History ondansetron 8 mg PO Q8H PRN 10/06/18 10/11/18 History pantoprazole [Protonix] 40 mg PO BID 10/06/18 10/11/18 History potassium chloride [Klor-Con 10] 10 meq PO DAILY 10/06/18 10/11/18 History topiramate [Topamax] 100 mg PO BID 10/06/18 10/11/18 History ziprasidone HCl [Geodon] 80 mg PO BID 10/06/18 10/11/18 History atomoxetine [Strattera] 80 mg PO DAILY 10/11/18 10/11/18 History buspirone 15 mg PO BID 10/11/18 10/11/18 History gabapentin 800 mg PO TID 10/11/18 10/11/18 History hydrocodone-acetaminophen [[place]] 1 tab PO Q6H PRN 10/11/18 10/11/18 History meloxicam [Mobic] 7.5 mg PO DAILY 10/11/18 10/11/18 History propranolol 40 mg PO BID 10/11/18 10/11/18 History quetiapine [Seroquel] 50 mg PO BID 10/11/18 10/11/18 History Allergies Allergy/AdvReac Type Severity Reaction Status Date / Time Sulfa (Sulfonamide Allergy Severe ANAPHYLAXIS Verified 10/11/18 11:24 Antibiotics) morphine Allergy Intermediate EXTREME Unverified 10/11/18 11:24 ITCHING adhesive Allergy Unknown UNKNOWN Verified 10/11/18 11:24 meperidine Allergy Unknown Verified 10/11/18 11:24 nicotine Allergy Unknown FROM Verified 10/11/18 11:24 NICOTINE PATCH oxycodone Allergy Unknown TYLOX Verified 10/11/18 11:24 sumatriptan Allergy Unknown ANAPHYLAXIS Verified 10/11/18 11:24 amoxicillin AdvReac Severe GI SYMPTOMS Verified 10/11/18 11:24 clavulanic acid AdvReac Severe GI SYMPTOMS Verified 10/11/18 11:24 milk AdvReac Severe UNABLE TO Verified 10/11/18 11:24 URINATE tiotropium AdvReac Severe UNABLE TO Verified 10/11/18 11:24 URINATE venlafaxine AdvReac Severe Nightmare Unverified 10/11/18 11:24 OPIATE ANTAG Allergy Unknown OXYCODONE Uncoded 10/11/18 11:24 Past Med/Surg History Medical History Asthma (Chronic) Insomnia (Chronic) Tobacco use (Chronic) ADD (attention deficit disorder) (Chronic) Osteoarthritis (Chronic) GERD (gastroesophageal reflux disease) (Chronic) Asthma exacerbation with COPD (chronic obstructive pulmonary disease) (Chronic) Hypertension (Chronic) Bipolar I disorder (Chronic 05/13/13) Surgical History History of cholecystectomy (Resolved) History of ankle surgery (Resolved) Status post left hip replacement (Resolved) Family History Father Heart failure Diabetes Colon cancer Mother Melanoma Social History Feels Safe at Home: Yes Smoking Status: Current every day smoker Tobacco Type: cigarettes Cigarettes per Day: 3/4 pack Hx Alcohol Use: Yes Alcohol Intake Frequency: holidays/special occasions only Hx Substance Use: No Review of Systems See HPI for pertinent positives & negatives. and A total of 10 systems reviewed and were otherwise negative Physical Exam Vital Signs Vital Signs - 24 hr 10/11/18 10:31 10/11/18 11:00 10/11/18 11:04 Temperature 36.4 C L Temperature Source Oral Sepsis Recent Fever Within 48 Hours No Sepsis Action Taken by Nursing No Action Required Pulse Rate 78 68 Pulse Rate [Apical] Pulse Rate [Finger] Pulse Rate from SpO2 Sensor 68 Pulse Rhythm Regular Pulse Strength Normal Respiratory Rate 26 H 22 Respiratory Effort / Characteristics Short of Breath SOB on Exertion Spontaneous Respiratory Depth Normal Normal Respiratory Pattern Regular Regular Blood Pressure 117/64 90/73 L Blood Pressure [Left Arm] Blood Pressure [Right Arm] Blood Pressure Mean 81 78 Blood Pressure Mean [Left Arm] Blood Pressure Mean [Right Arm] Blood Pressure Position [Left Arm] Pulse Oximetry 91 89 L Pulse Oximetry [Exercises] Oxygen Delivery Method Room Air Oxygen Flow Rate 10/11/18 11:07 10/11/18 11:10 10/11/18 11:20 Temperature Temperature Source Sepsis Recent Fever Within 48 Hours Sepsis Action Taken by Nursing Pulse Rate 69 67 68 Pulse Rate [Apical] Pulse Rate [Finger] Pulse Rate from SpO2 Sensor 70 68 68 Pulse Rhythm Pulse Strength Respiratory Rate 30 H 28 H 29 H Respiratory Effort / Characteristics Respiratory Depth Respiratory Pattern Blood Pressure Blood Pressure [Left Arm] Blood Pressure [Right Arm] Blood Pressure Mean Blood Pressure Mean [Left Arm] Blood Pressure Mean [Right Arm] Blood Pressure Position [Left Arm] Pulse Oximetry 89 L 90 89 L Pulse Oximetry [Exercises] Oxygen Delivery Method Oxygen Flow Rate 10/11/18 11:28 10/11/18 11:30 10/11/18 11:39 Temperature Temperature Source Sepsis Recent Fever Within 48 Hours Sepsis Action Taken by Nursing Pulse Rate 68 Pulse Rate [Apical] 68 66 Pulse Rate [Finger] Pulse Rate from SpO2 Sensor 68 Pulse Rhythm Pulse Strength Respiratory Rate 26 H 24 25 H Respiratory Effort / Characteristics Spontaneous Short of Breath Respiratory Depth Respiratory Pattern Blood Pressure Blood Pressure [Left Arm] Blood Pressure [Right Arm] 100/69 Blood Pressure Mean Blood Pressure Mean [Left Arm] Blood Pressure Mean [Right Arm] 79 Blood Pressure Position [Left Arm] Pulse Oximetry 91 98 97 Pulse Oximetry [Exercises] Oxygen Delivery Method Room Air Nebulizer Oxygen Flow Rate 10/11/18 11:40 10/11/18 11:41 10/11/18 11:50 Temperature Temperature Source Sepsis Recent Fever Within 48 Hours Sepsis Action Taken by Nursing Pulse Rate 66 66 65 Pulse Rate [Apical] Pulse Rate [Finger] Pulse Rate from SpO2 Sensor 66 66 67 Pulse Rhythm Pulse Strength Respiratory Rate 25 H 22 19 Respiratory Effort / Characteristics Respiratory Depth Respiratory Pattern Blood Pressure 100/69 Blood Pressure [Left Arm] Blood Pressure [Right Arm] Blood Pressure Mean 79 Blood Pressure Mean [Left Arm] Blood Pressure Mean [Right Arm] Blood Pressure Position [Left Arm] Pulse Oximetry 97 96 97 Pulse Oximetry [Exercises] Oxygen Delivery Method Oxygen Flow Rate 10/11/18 12:00 10/11/18 12:01 10/11/18 12:10 Temperature Temperature Source Sepsis Recent Fever Within 48 Hours Sepsis Action Taken by Nursing Pulse Rate 68 67 69 Pulse Rate [Apical] Pulse Rate [Finger] Pulse Rate from SpO2 Sensor 68 67 71 Pulse Rhythm Pulse Strength Respiratory Rate 19 31 H 15 Respiratory Effort / Characteristics Respiratory Depth Respiratory Pattern Blood Pressure Blood Pressure [Left Arm] Blood Pressure [Right Arm] Blood Pressure Mean 105 Blood Pressure Mean [Left Arm] Blood Pressure Mean [Right Arm] Blood Pressure Position [Left Arm] Pulse Oximetry 98 92 89 L Pulse Oximetry [Exercises] Oxygen Delivery Method Oxygen Flow Rate 10/11/18 12:20 10/11/18 12:30 10/11/18 12:32 Temperature Temperature Source Sepsis Recent Fever Within 48 Hours Sepsis Action Taken by Nursing Pulse Rate 67 68 Pulse Rate [Apical] Pulse Rate [Finger] Pulse Rate from SpO2 Sensor 67 67 69 Pulse Rhythm Pulse Strength Respiratory Rate 21 28 H 20 Respiratory Effort / Characteristics Respiratory Depth Respiratory Pattern Blood Pressure Blood Pressure [Left Arm] Blood Pressure [Right Arm] Blood Pressure Mean 71 Blood Pressure Mean [Left Arm] Blood Pressure Mean [Right Arm] Blood Pressure Position [Left Arm] Pulse Oximetry 89 L 89 L 89 L Pulse Oximetry [Exercises] Oxygen Delivery Method Oxygen Flow Rate 10/11/18 12:40 10/11/18 12:50 10/11/18 13:00 Temperature Temperature Source Sepsis Recent Fever Within 48 Hours Sepsis Action Taken by Nursing Pulse Rate Pulse Rate [Apical] Pulse Rate [Finger] Pulse Rate from SpO2 Sensor 72 69 71 Pulse Rhythm Pulse Strength Respiratory Rate 19 27 H 19 Respiratory Effort / Characteristics Respiratory Depth Respiratory Pattern Blood Pressure Blood Pressure [Left Arm] Blood Pressure [Right Arm] Blood Pressure Mean Blood Pressure Mean [Left Arm] Blood Pressure Mean [Right Arm] Blood Pressure Position [Left Arm] Pulse Oximetry 88 L 90 89 L Pulse Oximetry [Exercises] Oxygen Delivery Method Oxygen Flow Rate 10/11/18 13:02 10/11/18 13:05 10/11/18 13:10 Temperature Temperature Source Sepsis Recent Fever Within 48 Hours Sepsis Action Taken by Nursing Pulse Rate 73 Pulse Rate [Apical] 70 Pulse Rate [Finger] Pulse Rate from SpO2 Sensor 74 Pulse Rhythm Pulse Strength Respiratory Rate 33 H 21 Respiratory Effort / Characteristics Respiratory Depth Respiratory Pattern Blood Pressure 118/58 L Blood Pressure [Left Arm] Blood Pressure [Right Arm] 118/58 L Blood Pressure Mean 78 Blood Pressure Mean [Left Arm] Blood Pressure Mean [Right Arm] 78 Blood Pressure Position [Left Arm] Pulse Oximetry 91 87 L Pulse Oximetry [Exercises] Oxygen Delivery Method Room Air Oxygen Flow Rate 10/11/18 13:16 10/11/18 13:17 10/11/18 13:20 Temperature Temperature Source Sepsis Recent Fever Within 48 Hours Sepsis Action Taken by Nursing Pulse Rate 69 Pulse Rate [Apical] Pulse Rate [Finger] Pulse Rate from SpO2 Sensor 69 Pulse Rhythm Pulse Strength Respiratory Rate 30 H Respiratory Effort / Characteristics Respiratory Depth Respiratory Pattern Blood Pressure Blood Pressure [Left Arm] Blood Pressure [Right Arm] Blood Pressure Mean Blood Pressure Mean [Left Arm] Blood Pressure Mean [Right Arm] Blood Pressure Position [Left Arm] Pulse Oximetry 95 93 Pulse Oximetry [Exercises] 85 L Oxygen Delivery Method Room Air Nasal Cannula Oxygen Flow Rate 3 10/11/18 13:30 10/11/18 13:31 10/11/18 13:40 Temperature Temperature Source Sepsis Recent Fever Within 48 Hours Sepsis Action Taken by Nursing Pulse Rate 70 70 72 Pulse Rate [Apical] Pulse Rate [Finger] Pulse Rate from SpO2 Sensor 70 70 71 Pulse Rhythm Pulse Strength Respiratory Rate 27 H 28 H 17 Respiratory Effort / Characteristics Respiratory Depth Respiratory Pattern Blood Pressure 116/78 Blood Pressure [Left Arm] Blood Pressure [Right Arm] Blood Pressure Mean 90 Blood Pressure Mean [Left Arm] Blood Pressure Mean [Right Arm] Blood Pressure Position [Left Arm] Pulse Oximetry 94 95 93 Pulse Oximetry [Exercises] Oxygen Delivery Method Oxygen Flow Rate 10/11/18 13:50 10/11/18 14:00 10/11/18 14:10 Temperature Temperature Source Sepsis Recent Fever Within 48 Hours Sepsis Action Taken by Nursing Pulse Rate 70 72 76 Pulse Rate [Apical] Pulse Rate [Finger] Pulse Rate from SpO2 Sensor 70 72 76 Pulse Rhythm Pulse Strength Respiratory Rate 25 H 20 24 Respiratory Effort / Characteristics Respiratory Depth Respiratory Pattern Blood Pressure Blood Pressure [Left Arm] Blood Pressure [Right Arm] Blood Pressure Mean Blood Pressure Mean [Left Arm] Blood Pressure Mean [Right Arm] Blood Pressure Position [Left Arm] Pulse Oximetry 94 93 92 Pulse Oximetry [Exercises] Oxygen Delivery Method Oxygen Flow Rate 10/11/18 14:20 10/11/18 14:37 10/11/18 14:40 Temperature Temperature Source Sepsis Recent Fever Within 48 Hours Sepsis Action Taken by Nursing Pulse Rate 72 78 103 H Pulse Rate [Apical] Pulse Rate [Finger] Pulse Rate from SpO2 Sensor 74 77 75 Pulse Rhythm Pulse Strength Respiratory Rate 24 19 21 Respiratory Effort / Characteristics Respiratory Depth Respiratory Pattern Blood Pressure Blood Pressure [Left Arm] Blood Pressure [Right Arm] Blood Pressure Mean Blood Pressure Mean [Left Arm] Blood Pressure Mean [Right Arm] Blood Pressure Position [Left Arm] Pulse Oximetry 94 91 92 Pulse Oximetry [Exercises] Oxygen Delivery Method Oxygen Flow Rate 10/11/18 14:50 10/11/18 15:00 10/11/18 15:10 Temperature Temperature Source Sepsis Recent Fever Within 48 Hours Sepsis Action Taken by Nursing Pulse Rate 81 74 74 Pulse Rate [Apical] Pulse Rate [Finger] Pulse Rate from SpO2 Sensor 80 73 74 Pulse Rhythm Pulse Strength Respiratory Rate 22 33 H 22 Respiratory Effort / Characteristics Respiratory Depth Respiratory Pattern Blood Pressure Blood Pressure [Left Arm] Blood Pressure [Right Arm] Blood Pressure Mean Blood Pressure Mean [Left Arm] Blood Pressure Mean [Right Arm] Blood Pressure Position [Left Arm] Pulse Oximetry 92 93 91 Pulse Oximetry [Exercises] Oxygen Delivery Method Oxygen Flow Rate 10/11/18 15:12 10/11/18 15:13 10/11/18 15:20 Temperature Temperature Source Sepsis Recent Fever Within 48 Hours Sepsis Action Taken by Nursing Pulse Rate 76 76 Pulse Rate [Apical] 75 Pulse Rate [Finger] Pulse Rate from SpO2 Sensor 74 74 Pulse Rhythm Pulse Strength Respiratory Rate 20 26 H 22 Respiratory Effort / Characteristics Respiratory Depth Respiratory Pattern Blood Pressure 142/57 H Blood Pressure [Left Arm] Blood Pressure [Right Arm] 142/57 H Blood Pressure Mean 85 Blood Pressure Mean [Left Arm] Blood Pressure Mean [Right Arm] 85 Blood Pressure Position [Left Arm] Pulse Oximetry 95 92 92 Pulse Oximetry [Exercises] Oxygen Delivery Method Nasal Cannula Oxygen Flow Rate 2 10/11/18 15:30 10/11/18 15:31 10/11/18 15:40 Temperature Temperature Source Sepsis Recent Fever Within 48 Hours Sepsis Action Taken by Nursing Pulse Rate 74 74 75 Pulse Rate [Apical] Pulse Rate [Finger] Pulse Rate from SpO2 Sensor 74 74 75 Pulse Rhythm Pulse Strength Respiratory Rate 27 H 30 H 29 H Respiratory Effort / Characteristics Respiratory Depth Respiratory Pattern Blood Pressure 130/74 Blood Pressure [Left Arm] Blood Pressure [Right Arm] Blood Pressure Mean 92 Blood Pressure Mean [Left Arm] Blood Pressure Mean [Right Arm] Blood Pressure Position [Left Arm] Pulse Oximetry 92 92 91 Pulse Oximetry [Exercises] Oxygen Delivery Method Oxygen Flow Rate 10/11/18 15:50 10/11/18 17:35 10/11/18 18:00 Temperature Temperature Source Sepsis Recent Fever Within 48 Hours Sepsis Action Taken by Nursing Pulse Rate 75 Pulse Rate [Apical] 79 Pulse Rate [Finger] Pulse Rate from SpO2 Sensor 75 Pulse Rhythm Pulse Strength Respiratory Rate 19 20 20 Respiratory Effort / Characteristics Respiratory Depth Respiratory Pattern Blood Pressure Blood Pressure [Left Arm] Blood Pressure [Right Arm] 126/53 L Blood Pressure Mean Blood Pressure Mean [Left Arm] Blood Pressure Mean [Right Arm] 77 Blood Pressure Position [Left Arm] Pulse Oximetry 91 92 92 Pulse Oximetry [Exercises] Oxygen Delivery Method Nasal Cannula Nasal Cannula Oxygen Flow Rate 2 2 10/11/18 18:54 10/11/18 19:17 Temperature 36.5 C Temperature Source Oral Sepsis Recent Fever Within 48 Hours Sepsis Action Taken by Nursing Pulse Rate Pulse Rate [Apical] Pulse Rate [Finger] 77 73 Pulse Rate from SpO2 Sensor Pulse Rhythm Pulse Strength Respiratory Rate 20 16 Respiratory Effort / Characteristics Non-Labored Spontaneous Respiratory Depth Respiratory Pattern Blood Pressure Blood Pressure [Left Arm] 143/83 H Blood Pressure [Right Arm] Blood Pressure Mean Blood Pressure Mean [Left Arm] 103 Blood Pressure Mean [Right Arm] Blood Pressure Position [Left Arm] Lying Pulse Oximetry 93 95 Pulse Oximetry [Exercises] Oxygen Delivery Method Nasal Cannula Nasal Cannula Oxygen Flow Rate 2.0 2 GENERAL: Awake, alert, mildl dyspneic-appearing, in no distress HENT: Normocephalic, atraumatic. Oropharynx with dry mucous membranes and otherwise unremarkable. EYES: Normal conjunctiva. Sclera non-icteric. NECK: Supple. No nuchal rigidity. FROM. No JVD. RESPIRATORY: Scattered wheezes. CARDIAC: Regular rate, normal rhythm. Extremities warm and well perfused. Pulses equal. ABDOMEN: Soft, non-distended. No tenderness to palpation. No rebound or guarding. No masses. RECTAL: Deferred. MUSCULOSKELETAL: Chest examination reveals no tenderness. The back is symmetrical on inspection without obvious abnormality. There is no CVA tenderness to palpation. No joint edema. LOWER EXTREMITIES: Calves are equal size bilaterally and non-tender. No edema. No discoloration. NEURO: Normal sensorium. No sensory or motor deficits noted. SKIN: No rash or jaundice noted. Course 1039: Past medical records reviewed. The patient was evaluated in room C11B, and a complete history and physical examination were performed. 1322: I reviewed the patient's case with Cee Gregorio PA-C - [facility]. She will evaluate the patient for further management. Administered Medications Albuterol (Duoneb) 3 ml NEB QIDR AUTUMN Stop: 11/10/18 19:59 Last Admin: 10/11/18 19:14 Dose: 3 ml Atomoxetine HCl (Strattera) 80 mg PO BID AUTUMN Stop: 11/10/18 20:59 Last Admin: 10/11/18 21:04 Dose: 80 mg Benzonatate (Tessalon Perle) 100 mg PO TID PRN PRN Reason: Cough Stop: 11/10/18 19:19 Last Admin: 10/11/18 21:05 Dose: 100 mg Budesonide/Formoterol Fumarate (Symbicort 160mcg/4.5mcg) 1 puffs INH BID AUTUMN Stop: 11/10/18 20:59 Last Admin: 10/11/18 21:06 Dose: 1 puffs Buspirone HCl (Buspar) 15 mg PO BID AUTUMN Stop: 11/10/18 20:59 Last Admin: 10/11/18 21:04 Dose: 15 mg Doxycycline Hyclate (Vibramycin) 100 mg PO BID [facility] Stop: 10/18/18 15:24 Last Admin: 10/11/18 21:09 Dose: Not Given Admin: 10/11/18 18:02 Dose: 100 mg Gabapentin (Neurontin) 800 mg PO TID AUTUMN Stop: 11/10/18 20:59 Last Admin: 10/11/18 21:04 Dose: 800 mg Ceftriaxone Sodium 1,000 mg/ (Dextrose) 60 mls @ 100 mls/hr IV Q24H AUTUMN Stop: 10/18/18 15:19 Last Infusion: 10/11/18 18:43 Dose: 0 mls/hr Admin: 10/11/18 18:05 Dose: 100 mls/hr Methylprednisolone 40 mg/ (Syringe) 0.64 mls @ 1.5 mls/min IV Q8H AUTUMN Stop: 11/10/18 19:59 Last Admin: 10/11/18 21:03 Dose: 1.5 mls/min Miscellaneous (Order Awaiting Action) 1 ea N/A QS AUTUMN Stop: 11/10/18 19:59 Last Admin: 10/11/18 21:02 Dose: Not Given Montelukast Sodium (Singulair) 10 mg PO HS AUTUMN Stop: 11/10/18 20:59 Last Admin: 10/11/18 21:05 Dose: 10 mg Nicotine (Nicoderm Cq) 14 mg TD QAM [facility]UMN Stop: 11/10/18 19:29 Last Admin: 10/11/18 19:35 Dose: 14 mg Nystatin (Mycostatin) 1 appln EXT BID [facility]UMN Stop: 11/10/18 20:59 Last Admin: 10/11/18 21:06 Dose: Not Given Oseltamivir Phosphate (Tamiflu) 75 mg PO BID AUTUMN Stop: 10/16/18 20:59 Last Admin: 10/11/18 21:03 Dose: 75 mg Pantoprazole Sodium (Protonix) 40 mg PO BID [facility]UMN Stop: 11/10/18 20:59 Last Admin: 10/11/18 21:03 Dose: 40 mg Propranolol HCl (Inderal) 40 mg PO BID AUTUMN Stop: 11/10/18 20:59 Last Admin: 10/11/18 21:04 Dose: 40 mg Topiramate (Topamax) 100 mg PO BID AUTUMN Stop: 11/10/18 20:59 Last Admin: 10/11/18 21:04 Dose: 100 mg Ziprasidone (Geodon) 80 mg PO BID AUTUMN Stop: 11/10/18 20:59 Last Admin: 10/11/18 21:06 Dose: 80 mg Discontinued Medications Albuterol (Duoneb) 12 ml NEB ONE ONE Stop: 10/11/18 10:47 Last Admin: 10/11/18 11:27 Dose: 12 ml Ceftriaxone Sodium (Rocephin) Confirm Administered Dose 1,000 mg .ROUTE .STK- MED ONE Stop: 10/11/18 18:00 Last Admin: 10/11/18 18:05 Dose: Not Given Sodium Chloride (Nss) 500 mls @ 999 mls/hr IV .Q31M AUTUMN Stop: 10/11/18 11:15 Last Infusion: 10/11/18 12:39 Dose: 0 mls/hr Admin: 10/11/18 11:37 Dose: 999 mls/hr Lorazepam (Ativan) 0.5 mg in 1 mls @ 1 mls/min IV NOW ONE Stop: 10/11/18 17:50 Last Admin: 10/11/18 18:02 Dose: 1 mls/min Methylprednisolone (Solumedrol) 125 mg IV NOW STA Stop: 10/11/18 10:47 Last Admin: 10/11/18 11:33 Dose: 125 mg Oseltamivir Phosphate (Tamiflu) 75 mg PO NOW STA Stop: 10/11/18 12:39 Last Admin: 10/11/18 13:13 Dose: 75 mg Medical Decision Making Differential Diagnosis Differential diagnoses includes but is not limited to pneumonia, bronchitis, COPD/Asthma exacerbation, pneumothorax, pulmonary embolism, congestive heart failure, and acute coronary syndrome. Medical Records Attestation: I reviewed the patient's medical records. Home Medications Current Medication List: was personally reviewed by me Laboratory Data Attestation: I reviewed the patient's lab results. Result diagrams: 10/11/18 11:35 10/11/18 11:35 Lab Results 10/11/18 10/11/18 10/11/18 Range/Units 11:10 11:35 11:35 WBC 13.21 H (4.8-10.8) K/uL RBC 4.15 L (4.2-5.4) M/uL Hgb 12.7 (12.0-16.0) g/dL Hct 38.5 (37-47) % MCV 92.8 (80-100) fL MCH 30.6 (25-34) pg MCHC 33.0 (32-36) g/dL RDW Std Deviation 46.2 (36.4-46.3) fL RDW Coeff of Vickie 13.5 (11.5-14.5) % Plt Count 244 (130-400) K/uL MPV 11.9 H (7.4-10.4) fL Immature Gran % (Auto) 0.3 % Neut % (Auto) 71.6 % Lymph % (Auto) 18.2 % [place] % (Auto) 9.3 % Eos % (Auto) 0.4 % Baso % (Auto) 0.2 % Immature Gran # (Auto) 0.04 H (0.00-0.02) K/uL Neut # (Auto) 9.46 H (1.4-6.5) K/uL Lymph # (Auto) 2.41 (1.2-3.4) K/uL [place] # (Auto) 1.23 H (0.11-0.59) K/uL Eos # (Auto) 0.05 (0-0.5) K/uL Baso # (Auto) 0.02 (0-0.2) K/uL Sodium 142 (136-145) mmol/L Potassium 3.6 (3.5-5.1) mmol/L Chloride 112 H (98-107) mmol/L Carbon Dioxide 25 (21-32) mmol/L Anion Gap 5.0 (3-11) BUN 14 (7-18) mg/dl Creatinine 0.80 (0.6-1.2) mg/dl Est Cr Clr Drug Dosing 99.6 ml/min Est GFR ( Amer) 98.2 Est GFR (Non-Af Amer) 84.8 BUN/Creatinine Ratio 17.1 (10-20) Glucose 113 H (70-99) mg/dl Calcium 8.2 L (8.5-10.1) mg/dl Total Bilirubin 0.5 (0.2-1) mg/dl AST 26 (15-37) U/L ALT 38 (12-78) U/L Alkaline Phosphatase 132 H (45-117) U/L Troponin I < 0.015 (0-0.045) ng/ml NT-Pro-B Natriuret Pep (0-900) pg/ml Total Protein 6.7 (6.4-8.2) gm/dl Albumin 2.6 L (3.4-5.0) gm/dl Globulin 4.1 H (2.5-4.0) gm/dl Albumin/Globulin Ratio 0.6 L (0.9-2) Lipase 68 L (73-393) U/L Procalcitonin (0-0.5) ng/ml Influenza Type A (PCR) Pos for Influ A A* (Neg) Influenza Type B (PCR) Neg for Influ B (Neg) 10/11/18 10/11/18 Range/Units 11:35 11:35 WBC (4.8-10.8) K/uL RBC (4.2-5.4) M/uL Hgb (12.0-16.0) g/dL Hct (37-47) % MCV (80-100) fL MCH (25-34) pg MCHC (32-36) g/dL RDW Std Deviation (36.4-46.3) fL RDW Coeff of Vickie (11.5-14.5) % Plt Count (130-400) K/uL MPV (7.4-10.4) fL Immature Gran % (Auto) % Neut % (Auto) % Lymph % (Auto) % [place] % (Auto) % Eos % (Auto) % Baso % (Auto) % Immature Gran # (Auto) (0.00-0.02) K/uL Neut # (Auto) (1.4-6.5) K/uL Lymph # (Auto) (1.2-3.4) K/uL [place] # (Auto) (0.11-0.59) K/uL Eos # (Auto) (0-0.5) K/uL Baso # (Auto) (0-0.2) K/uL Sodium (136-145) mmol/L Potassium (3.5-5.1) mmol/L Chloride (98-107) mmol/L Carbon Dioxide (21-32) mmol/L Anion Gap (3-11) BUN (7-18) mg/dl Creatinine (0.6-1.2) mg/dl Est Cr Clr Drug Dosing ml/min Est GFR ( Amer) Est GFR (Non-Af Amer) BUN/Creatinine Ratio (10-20) Glucose (70-99) mg/dl Calcium (8.5-10.1) mg/dl Total Bilirubin (0.2-1) mg/dl AST (15-37) U/L ALT (12-78) U/L Alkaline Phosphatase (45-117) U/L Troponin I (0-0.045) ng/ml NT-Pro-B Natriuret Pep 752 (0-900) pg/ml Total Protein (6.4-8.2) gm/dl Albumin (3.4-5.0) gm/dl Globulin (2.5-4.0) gm/dl Albumin/Globulin Ratio (0.9-2) Lipase (73-393) U/L Procalcitonin < 0.05 (0-0.5) ng/ml Influenza Type A (PCR) (Neg) Influenza Type B (PCR) (Neg) Imaging Data Radiologist's Impression: Radiology results as stated below per my review and the radiologist's interpretation: XR chest 1V portable HISTORY: 53 years-old Female Chest Pain acute atypical chest pain COMPARISON: Chest and rib radiographs 10/06/2017 TECHNIQUE: Portable AP view of the chest FINDINGS: Cardiac silhouette is enlarged, unchanged. Pulmonary vascular congestion with progressively worsened bilateral mixed interstitial and alveolar opacities. The lungs are hypoinflated. Chronic right hemidiaphragmatic elevation. Linear subsegmental opacities about the lateral left midlung redemonstrated suggestive of atelectasis or scarring. There is no pneumothorax or large pleural effusion. Chronic right-sided rib fractures. Cholecystectomy clips noted. Degenerative changes of the shoulders and spine with right shoulder rotator cuff calcific tendinosis. IMPRESSION: 1. Cardiomegaly with progressively worsened mixed interstitial and alveolar opacities suggestive of pulmonary edema and/or multifocal pneumonitis. 2. Hypoinflated lungs with unchanged right hemidiaphragm elevation. The above report was generated using voice recognition software. It may contain grammatical, syntax or spelling errors. Electronically signed by: Fabio Kothari M.D. 10/11/2018 10:58 AM ECG Data Attestation: I personally reviewed and interpreted this ECG as follows: Indication: SOB/dyspnea Rate (beats per minute): 69 Rhythm: normal sinus Findings: + other (normal axis, nonspecific T wave anterior laterally) Comparison ECG Date: from (07-OCT-2018) Change: the following changes noted (improved) Blood Pressure Blood Pressure Findings: Low blood pressure Blood Pressure Disposition: further management by hospitalist [facility] Narrative The patient is a pleasant 53-year-old woman who presents to emergency department with worsening cough congestion in setting of being seen in the ED on 10/06 for similar symptoms found to have nondisplaced rib fractures per hpi. On arrival the patient is uncomfortable but no acute distress, afebrile stable vital signs. EKG without acute ischemia. WBC, 13.2, nonspecific. Chemistry without acidosis. Troponin negative. Influenza A positive. Chest x-ray with mixed interstitial and alveolar opacities suggestive multifocal pneumonitis vs pulmonary edema. Given BNP wnl, most likely related to pneumonitis. Patient feeling improved after IV fluids, DuoNeb, Solu-Medrol. However, upon ambulatory trial patient would desaturate to 85%. Thus given the patient's comorbidities with influenza A and evidence of pneumonitis reasonable to admit the patient for further management. Case was discussed with Trice Mayes PA-C, who will evaluate the patient for admission. Impression & Plan Hypoxia, Influenza A Discharge Plan Visit Data *Final* Discharge Date/Time: 10/11/18 18:00 Chief Complaint: Shortness of Breath/Dyspnea Stated Complaint: SOB ED Provider: Daniel Tomas Discharge Problem: Hypoxia, Influenza A Patient Disposition: Admitted As Inpatient Discharge Instructions Interventions: ED Discharge Assessment Last Done: 10/11/18 18:00 The scribe's documentation has been prepared under my direction and personally reviewed by me in its entirety. I confirm that the note above accurately reflects all work, treatment, procedures, and medical decision making performed by me.
[2018-10-11] MEDS ORDERED: LORazepam 0.5 MG/1 ML VIAL IV ONE (17:49)
[2018-10-11] MEDS ORDERED: cefTRIAXone SODIUM 1000MG/50ML D5W ONE (17:59)
[2018-10-11] MEDS: DOXYCYCLINE HYCLATE 100 MG CAP PO SCH ×2 (18:02→21:09)
[2018-10-11] MEDS: cefTRIAXone SODIUM 1,000 MG in DEXTROSE 5% 50 ML IV SCH (18:05)
[2018-10-11] MEDS ORDERED: ACETAMINOPHEN 325 MG TAB PO PRN (18:57)
[2018-10-11] MEDS: ALBUT/IPRATROP 3MG/0.5MG NEB 3 ML VIAL NEB SCH (19:14)
[2018-10-11] MEDS ORDERED: DICYCLOMINE HCL 20 MG TAB PO PRN (19:20)
[2018-10-11] MEDS ORDERED: DICLOFENAC SOD 1% GEL 100 GM TUBE NAE PRN (19:20)
[2018-10-11] MEDS ORDERED: HYDROCODONE/ACETAMOPHEN 5/325MG TAB PO PRN (19:20)
[2018-10-11] MEDS ORDERED: CYCLOBENZAPRINE HCL 10 MG TAB PO PRN (19:20)
[2018-10-11] MEDS: NICOTINE 14 MG/24 HR PATCH TD SCH (19:35)
[2018-10-11] MEDS ORDERED: ATOMOXETINE HCL 40 MG CAPSULE PO SCH (21:00)
[2018-10-11] MEDS: MUCINEX DM~ORDER AWAITING ACTION SCH ×2 (21:02→22:37)
[2018-10-11] MEDS: methylPREDNISolone 40 MG in SYRINGE 0 ML IV SCH (21:03)
[2018-10-11] MEDS: OSELTAMIVIR PHOSPHATE 75 MG CAP PO SCH (21:03)
[2018-10-11] MEDS: PANTOprazole 40 MG TAB PO SCH (21:03)
[2018-10-11] MEDS: GABAPENTIN 800 MG TAB PO SCH (21:04)
[2018-10-11] MEDS: PROPRANOLOL HCL 20 MG TAB PO SCH (21:04)
[2018-10-11] MEDS: BusPIRone 15 MG TAB PO SCH (21:04)
[2018-10-11] MEDS: TOPIRAMATE 100 MG TAB PO SCH (21:04)
[2018-10-11] MEDS: BENZONATATE 100 MG CAPSULE PO PRN (21:05)
[2018-10-11] MEDS: MONTELUKAST SODIUM 10 MG TABLET PO SCH (21:05)
[2018-10-11] MEDS: ZIPRASIDONE HCL 80 MG CAP PO SCH (21:06)
[2018-10-11] MEDS: NYSTATIN POWDER 15GM BTL EXT SCH (21:06)
[2018-10-11] MEDS: BUDESONIDE/FORMOTEROL FUMARATE 160/4.5 60 PUFFS/INHALER INH SCH (21:06)
[2018-10-12] MEDS: methylPREDNISolone 40 MG in SYRINGE 0 ML IV SCH ×3 (06:00→20:27)
[2018-10-12 06:07] LABS: Hematocrit (blood only) 39.6 % (37-47); Mean Corpuscular Hgb Conc 32.8 g/dL (32-36); Mean Platelet Volume 12.5 fL (7.4-10.4); Platelet Count 268 K/uL (130-400); RDW Coefficient of Variation 13.2 % (11.5-14.5); Red Blood Count 4.26 M/uL (4.2-5.4); White Blood Count 10.73 K/uL (4.8-10.8)
[2018-10-12 06:47] LABS: BUN Creatinine Ratio 21.2 (10-20); Calcium 8.2 mg/dl (8.5-10.1); Est GFR (African American) 92.6; Est GFR (Non-African American) 79.9
[2018-10-12] MEDS: ALBUT/IPRATROP 3MG/0.5MG NEB 3 ML VIAL NEB SCH ×4 (07:06→19:14)
[2018-10-12] MEDS: LUBIPROSTONE 8 MCG CAP PO SCH ×2 (07:21→16:07)
[2018-10-12] MEDS: ESCITALOPRAM OXALATE 20 MG TAB PO SCH (07:22)
[2018-10-12] MEDS: ZIPRASIDONE HCL 80 MG CAP PO SCH ×2 (07:22→20:27)
[2018-10-12] MEDS: FUROSEMIDE 40 MG TAB PO SCH (07:23)
[2018-10-12] MEDS: MULTIVITAMIN TAB PO SCH (07:23)
[2018-10-12] MEDS: BENZONATATE 100 MG CAPSULE PO PRN (07:23)
[2018-10-12] MEDS: POTASSIUM CHLORIDE 10 MEQ TABCR PO SCH (07:24)
[2018-10-12] MEDS: MELOXICAM 7.5 MG TAB PO SCH (07:24)
[2018-10-12] MEDS: BusPIRone 15 MG TAB PO SCH ×2 (07:24→20:27)
[2018-10-12] MEDS: MUCINEX DM~ORDER AWAITING ACTION SCH ×3 (07:25→23:25)
[2018-10-12] MEDS: PROPRANOLOL HCL 20 MG TAB PO SCH ×2 (07:25→20:27)
[2018-10-12] MEDS: TOPIRAMATE 100 MG TAB PO SCH ×2 (07:25→20:26)
[2018-10-12] MEDS: OSELTAMIVIR PHOSPHATE 75 MG CAP PO SCH ×2 (07:26→20:27)
[2018-10-12] MEDS: GABAPENTIN 800 MG TAB PO SCH ×3 (07:26→20:27)
[2018-10-12] MEDS: ATOMOXETINE HCL 40 MG CAPSULE PO SCH (07:26)
[2018-10-12] MEDS: BUDESONIDE/FORMOTEROL FUMARATE 160/4.5 60 PUFFS/INHALER INH SCH ×2 (07:27→20:27)
[2018-10-12] MEDS: PANTOprazole 40 MG TAB PO SCH ×2 (07:27→20:26)
[2018-10-12] MEDS: NYSTATIN POWDER 15GM BTL EXT SCH ×2 (07:28→20:27)
[2018-10-12] MEDS: DOXYCYCLINE HYCLATE 100 MG CAP PO SCH ×2 (07:58→20:26)
[2018-10-12] MEDS: PROMETHAZINE HCL 6.25 MG in SODIUM CHLORIDE 0.9% 50 ML IV PRN (08:45)
[2018-10-12 08:58] LABS: Partial Thromboplastin Time 26.2 Seconds (21.0-31.0); Prothrombin Time 10.7 Seconds (9.0-12.0)
[2018-10-12] MEDS: ENOXAPARIN INJ 40 MG/0.4 ML SYR SQ SCH (10:27)
[2018-10-12] MEDS: cefTRIAXone SODIUM 1,000 MG in DEXTROSE 5% 50 ML IV SCH (16:07)
--- NOTE | 2018-10-12 16:25 | Hospitalist Progress Note ---
Date of Service October 12, 2018 Assessment & Plan (1) Acute respiratory failure with hypoxia: Patient is a 53 yr female who presents with worsening shortness of breath, cough. Acute Hypoxia Acute Asthma exacerbation In setting of Influenza A Continue Oxygen supplementation (2) Influenza A: Flu A PCR is positive Continue Tamiflu Day #2 Droplet precautions (3) Community acquired pneumonia: CXR with cardiomegaly with progressively worsened mixed interstitial and alveolar opacities suggestive of pulmonary edema and/or multifocal pneumonitis Continue Rocephin, Doxycycline Day #2 Blood cultures: pending (4) Asthma exacerbation with COPD (chronic obstructive pulmonary disease): Continue Solu Medrol, Duonebs Nurse Coordinator to quit smoking (5) Bipolar I disorder: Follows with [facility]. Continue home dose Seroquel, Topomax, Geodon, Lexapro, Buspar (6) Mood disorder: Follows with [facility]. Continue home medications (7) Closed rib fracture: Rib fractures of 7,8,10 recently 2/2 coughing Pain control (8) ADD (attention deficit disorder): Continue Strattera (9) Post-menopausal bleeding: Follows with Dr. Santiago Outpatient pelvic ultrasound that showed area of thickening of the endometrium to left midline without focal mass Needs short interval follow-up ultrasound is suggested in 3 months (has appt in November) (10) Insomnia: Continue Remeron (11) History of migraine: Continue propranolol as prophylaxis (12) Tobacco use: Nicotine patch DVT Px: SQ Lovenox Code status: FULL PCP: Ania Disposition: Plan to discharge home when medically stable. Subjective Patient is seen and examined at bedside Patient is nauseous earlier today Complains of right sided pleuritic chest pain Reports dry cough as well Offers no other complaints Physical Exam Vital Signs (Past 24 Hours): Last Vital Signs Temp 36.7 C 10/12/18 14:49 Pulse 86 10/12/18 15:19 Resp 20 10/12/18 15:19 BP 132/85 10/12/18 14:49 Pulse Ox 93 10/12/18 15:19 Physical Exam: Physical Exam: Vitals signs as noted above General Appearance:Morbid Obese, no apparent distress Head: normocephalic, Atraumatic Eyes: normal inspection, EOMI Neck: supple, Trachea midline Respiratory/Chest: Coarse breath sounds, Scattered wheezes Cardiovascular: S1, S2, No murmur Abdomen/GI:Soft, Non tender, Bowel sounds present Extremities/Musculoskelatal:normal inspection, no edema Neurologic/Psych:AAOX3, grossly no focal neurological deficits Skin: normal color, warm Results & Data Laboratory Results Short CBC 10/12/18 Range/Units 05:23 WBC 10.73 (4.8-10.8) K/uL Hgb 13.0 (12.0-16.0) g/dL Hct 39.6 (37-47) % Plt Count 268 (130-400) K/uL BMP 10/12/18 10/12/18 05:23 06:57 Sodium 140 Potassium 4.0 Chloride 111 H Carbon Dioxide 23 BUN 18 Creatinine 0.84 Glucose 159 H Calcium 8.2 L Diagnostic Findings CXR: 1. Cardiomegaly with progressively worsened mixed interstitial and alveolar opacities suggestive of pulmonary edema and/or multifocal pneumonitis. 2. Hypoinflated lungs with unchanged right hemidiaphragm elevation. (1) Closed rib fracture Encounter type: initial encounter Laterality: right Rib fracture type: single rib Qualified Code(s): S22.31XA - Fracture of one rib, right side, initial encounter for closed fracture
[2018-10-12] MEDS: MONTELUKAST SODIUM 10 MG TABLET PO SCH (20:27)
[2018-10-12] MEDS ORDERED: NICOTINE 14 MG/24 HR PATCH TD SCH (21:45)
[2018-10-12] MEDS: NICOTINE 14 MG/24 HR PATCH TD SCH (23:25)
[2018-10-13] MEDS: methylPREDNISolone 40 MG in SYRINGE 0 ML IV SCH ×3 (05:08→21:16)
[2018-10-13 06:59] LABS: Hematocrit (blood only) 39.8 % (37-47); Hemoglobin 13.4 g/dL (12.0-16.0); Mean Corpuscular Hgb Conc 33.7 g/dL (32-36); Mean Corpuscular Volume 91.3 fL (80-100); Mean Platelet Volume 12.2 fL (7.4-10.4); Platelet Count 276 K/uL (130-400); RDW Standard Deviation 43.5 fL (36.4-46.3); Red Blood Count 4.36 M/uL (4.2-5.4); White Blood Count 12.22 K/uL (4.8-10.8)
[2018-10-13] MEDS: ALBUT/IPRATROP 3MG/0.5MG NEB 3 ML VIAL NEB SCH ×4 (07:01→19:01)
[2018-10-13 07:28] LABS: Calcium 8.5 mg/dl (8.5-10.1); Creatinine Clr Calc Pharmacy 92.2 ml/min; Est GFR (African American) 91.3; Est GFR (Non-African American) 78.8; Potassium 3.8 mmol/L (3.5-5.1)
[2018-10-13] MEDS: MELOXICAM 7.5 MG TAB PO SCH (09:19)
[2018-10-13] MEDS: ZIPRASIDONE HCL 80 MG CAP PO SCH ×2 (09:19→21:17)
[2018-10-13] MEDS: POTASSIUM CHLORIDE 10 MEQ TABCR PO SCH (09:19)
[2018-10-13] MEDS: ESCITALOPRAM OXALATE 20 MG TAB PO SCH (09:20)
[2018-10-13] MEDS: ATOMOXETINE HCL 40 MG CAPSULE PO SCH (09:20)
[2018-10-13] MEDS: LUBIPROSTONE 8 MCG CAP PO SCH ×2 (09:20→17:06)
[2018-10-13] MEDS: PANTOprazole 40 MG TAB PO SCH ×2 (09:21→21:15)
[2018-10-13] MEDS: DOXYCYCLINE HYCLATE 100 MG CAP PO SCH ×2 (09:21→21:19)
[2018-10-13] MEDS: TOPIRAMATE 100 MG TAB PO SCH ×2 (09:21→21:16)
[2018-10-13] MEDS: BusPIRone 15 MG TAB PO SCH ×2 (09:21→21:17)
[2018-10-13] MEDS: MULTIVITAMIN TAB PO SCH (09:21)
[2018-10-13] MEDS: OSELTAMIVIR PHOSPHATE 75 MG CAP PO SCH ×2 (09:21→21:18)
[2018-10-13] MEDS: GABAPENTIN 800 MG TAB PO SCH ×3 (09:21→21:17)
[2018-10-13] MEDS: PROPRANOLOL HCL 20 MG TAB PO SCH ×2 (09:21→21:18)
[2018-10-13] MEDS: ENOXAPARIN INJ 40 MG/0.4 ML SYR SQ SCH (09:22)
[2018-10-13] MEDS: NYSTATIN POWDER 15GM BTL EXT SCH ×2 (09:22→21:22)
[2018-10-13] MEDS: BUDESONIDE/FORMOTEROL FUMARATE 160/4.5 60 PUFFS/INHALER INH SCH ×2 (09:22→21:19)
[2018-10-13] MEDS: MUCINEX DM~ORDER AWAITING ACTION SCH ×2 (09:51→15:25)
[2018-10-13] MEDS: PROMETHAZINE HCL 6.25 MG in SODIUM CHLORIDE 0.9% 50 ML IV PRN (10:59)
--- NOTE | 2018-10-13 13:07 | Fluoroscopy Report ---
FL video swallow CLINICAL HISTORY: r/o aspiration COMPARISON STUDY: Modified barium swallow October 17, 2007. FLUOROSCOPY TIME: 1.6 minutes. FINDINGS: No aspiration is identified with thin liquids, nectar thick liquids, pudding or crackers wi th paste. Epiglottic inversion is normal. Laryngeal elevation is normal. IMPRESSION: 1. No tracheal aspiration. Intact swallowing mechanism. 2. Full recommendations by speech pathology to follow. Electronically signed by: Matthew Mahmood M.D. 10/13/2018 1:06 PM
--- NOTE | 2018-10-13 15:53 | Hospitalist Progress Note ---
Date of Service October 13, 2018 Assessment & Plan (1) Acute respiratory failure with hypoxia: Patient is a 53 yr female who presents with worsening shortness of breath, cough. 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 Continue home dose Seroquel, Topomax, Geodon, Lexapro, Buspar (6) Mood disorder: Follows with [facility]. Continue home medications (7) Closed rib fracture: Rib fractures of 7,8,10 recently 2/2 coughing Pain control (8) ADD (attention deficit disorder): Continue Strattera (9) Post-menopausal bleeding: Follows with Dr. Santiago Outpatient pelvic ultrasound that showed area of thickening of the endometrium to left midline without focal mass Needs short interval follow-up ultrasound is suggested in 3 months (has appt in November) (10) Insomnia: Continue Remeron (11) History of migraine: Continue propranolol as prophylaxis (12) Tobacco use: Nicotine patch DVT Px: SQ Lovenox Code status: FULL PCP: Ania Disposition: Plan to discharge home when medically stable. Subjective Patient is seen and examined at bedside nausea resolved Pleuritic pain improved Cough about the same as yesterday Less SOB Offers no other complaints Physical Exam Vital Signs (Past 24 Hours): Last Vital Signs Temp 36.4 C L 10/13/18 11:38 Pulse 89 10/13/18 15:42 Resp 22 10/13/18 15:42 BP 143/77 H 10/13/18 11:38 Pulse Ox 96 10/13/18 15:42 Physical Exam: Physical Exam: Vitals signs as noted above General Appearance:Morbid Obese, no apparent distress Head: normocephalic, Atraumatic Eyes: normal inspection, EOMI Neck: supple, Trachea midline Respiratory/Chest: Decreased breath sounds, CTA Cardiovascular: S1, S2, No murmur Abdomen/GI:Soft, Non tender, Bowel sounds present Extremities/Musculoskelatal:normal inspection, no edema Neurologic/Psych:AAOX3, grossly no focal neurological deficits Skin: normal color, warm Results & Data Laboratory Results Short CBC 10/13/18 Range/Units 06:23 WBC 12.22 H (4.8-10.8) K/uL Hgb 13.4 (12.0-16.0) g/dL Hct 39.8 (37-47) % Plt Count 276 (130-400) K/uL BMP 10/13/18 06:23 Sodium 139 Potassium 3.8 Chloride 110 H Carbon Dioxide 20 L BUN 21 H Creatinine 0.85 Glucose 145 H Calcium 8.5 (1) Closed rib fracture Encounter type: initial encounter Laterality: right Rib fracture type: single rib Qualified Code(s): S22.31XA - Fracture of one rib, right side, in itial encounter for closed fracture
[2018-10-13] MEDS: cefTRIAXone SODIUM 1,000 MG in DEXTROSE 5% 50 ML IV SCH (17:09)
[2018-10-13] MEDS: MONTELUKAST SODIUM 10 MG TABLET PO SCH (21:20)
[2018-10-13] MEDS ORDERED: LIDOCAINE 5% 1 PATCH TD SCH (21:30)
[2018-10-14] MEDS: MUCINEX DM~ORDER AWAITING ACTION SCH ×2 (00:08→07:56)
[2018-10-14] MEDS: ALBUT/IPRATROP 3MG/0.5MG NEB 3 ML VIAL NEB SCH ×2 (07:19→11:23)
[2018-10-14] MEDS: ATOMOXETINE HCL 40 MG CAPSULE PO SCH (07:50)
[2018-10-14] MEDS: GABAPENTIN 800 MG TAB PO SCH (07:51)
[2018-10-14] MEDS: PROPRANOLOL HCL 20 MG TAB PO SCH (07:51)
[2018-10-14] MEDS: PANTOprazole 40 MG TAB PO SCH (07:52)
[2018-10-14] MEDS: POTASSIUM CHLORIDE 10 MEQ TABCR PO SCH (07:52)
[2018-10-14] MEDS: OSELTAMIVIR PHOSPHATE 75 MG CAP PO SCH (07:52)
[2018-10-14] MEDS: DOXYCYCLINE HYCLATE 100 MG CAP PO SCH (07:52)
[2018-10-14] MEDS: ZIPRASIDONE HCL 80 MG CAP PO SCH (07:52)
[2018-10-14] MEDS: BusPIRone 15 MG TAB PO SCH (07:52)
[2018-10-14] MEDS: TOPIRAMATE 100 MG TAB PO SCH (07:52)
[2018-10-14] MEDS: LUBIPROSTONE 8 MCG CAP PO SCH (07:53)
[2018-10-14] MEDS: FUROSEMIDE 40 MG TAB PO SCH (07:53)
[2018-10-14] MEDS: ESCITALOPRAM OXALATE 20 MG TAB PO SCH (07:54)
[2018-10-14] MEDS: MULTIVITAMIN TAB PO SCH (07:54)
[2018-10-14] MEDS: NICOTINE 14 MG/24 HR PATCH TD SCH (07:54)
[2018-10-14] MEDS: MELOXICAM 7.5 MG TAB PO SCH (07:54)
[2018-10-14] MEDS: NYSTATIN POWDER 15GM BTL EXT SCH (07:55)
[2018-10-14] MEDS: BUDESONIDE/FORMOTEROL FUMARATE 160/4.5 60 PUFFS/INHALER INH SCH (07:55)
[2018-10-14 08:10] LABS: BUN Creatinine Ratio 24.3 (10-20); Calcium 8.6 mg/dl (8.5-10.1); Creatinine Clr Calc Pharmacy 75.3 ml/min; Est GFR (African American) 71.5; Est GFR (Non-African American) 61.7; Potassium 3.5 mmol/L (3.5-5.1)
[2018-10-14] MEDS: ENOXAPARIN INJ 40 MG/0.4 ML SYR SQ SCH (10:17)
[2018-10-14] MEDS: methylPREDNISolone 40 MG in SYRINGE 0 ML IV SCH (10:17)
--- NOTE | 2018-10-14 12:00 | Hospitalist Progress Note ---
Date of Service October 14, 2018 Assessment & Plan (1) Acute respiratory failure with hypoxia: Patient is a 53 yr female who presents with worsening shortness of breath, cough. 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 Continue home dose Seroquel, Topomax, Geodon, Lexapro, Buspar (6) Mood disorder: Follows with [facility]. Continue home medications (7) Closed rib fracture: Rib fractures of 7,8,10 recently 2/2 coughing Pain is controlled (8) ADD (attention deficit disorder): Continue Strattera (9) Post-menopausal bleeding: Follows with Dr. Santiago Outpatient pelvic ultrasound that showed area of thickening of the endometrium to left midline without focal mass Needs short interval follow-up ultrasound is suggested in 3 months (has appt in November) (10) Insomnia: Continue Remeron (11) History of migraine: Continue propranolol as prophylaxis (12) Tobacco use: Nicotine patch DVT Px: SQ Lovenox Code status: FULL PCP: Ania Disposition: Plan to discharge home today Subjective Patient is seen and examined at bedside Feels much better today Cough much improved SOB continues to improve Diarrhea improving as well No new complaints Had 2 step today Physical Exam Vital Signs (Past 24 Hours): Last Vital Signs Temp 36.9 C 10/14/18 07:41 Pulse 72 10/14/18 11:24 Resp 18 10/14/18 11:24 BP 134/83 10/14/18 07:41 Pulse Ox 95 10/14/18 11:24 Physical Exam: Physical Exam: Vitals signs as noted above General Appearance:Morbid Obese, no apparent distress Head: normocephalic, Atraumatic Eyes: normal inspection, EOMI Neck: supple, Trachea midline Respiratory/Chest: Decreased breath sounds, CTA Cardiovascular: S1, S2, No murmur Abdomen/GI:Soft, Non tender, Bowel sounds present Extremities/Musculoskelatal:normal inspection, no edema Neurologic/Psych:AAOX3, grossly no focal neurological deficits Skin: normal color, warm Results & Data Laboratory Results [facility] 10/14/18 07:19 Sodium 141 Potassium 3.5 Chloride 110 H Carbon Dioxide 24 BUN 25 H Creatinine 1.04 Glucose 121 H Calcium 8.6 (1) Closed rib fracture Encounter type: initial encounter Laterality: right Rib fracture type: single rib Qualified Code(s): S22.31XA - Fracture of one rib, right side, initial encounter for closed fracture
--- NOTE | 2018-10-14 12:36 | Discharge Summary ---
Date of Service October 14, 2018 Admission HPI Per Admitting Provider This is a 53yo F with a PMH of asthma/COPD, current tobacco use, bipolar disorder, h/o migraines, GERD and other medical problems listed below who presents with worsening shortness of breath since yesterday. Has noticed progressively shortness of breath over the past few months, but became significantly more dyspneic yesterday. 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 Also endorses muscle aches, dry cough and nausea. Denies any fever, chills, sore throat, nausea, vomiting or diarrhea. Has been treated for bronchitis and pneumonia over the past few months by both PCP and pulm clinic. Most recently completed course of azithromycin and doxycycline in August. Has history of asthma and has been using duo nebs and inhalers at home. Is still smoking 3/4 pack cigarettes daily, which is a decrease from her previous 2 packs daily. Was seen in ED on Oct 06 and was found to have 3 broken ribs 2/2 coughing. Has been taking [place] for pain, which has been helping. Endorses constipation due to pain medication. In ED today, found to be hypoxic at 85% with ambulation. Positive for Influenza A. Admission Exam Per Admitting Provider General Appearance: WD/WN, no apparent distress, acute illness Head: normocephalic, atraumatic Eyes: normal inspection, PERRL, EOMI ENT: hearing grossly normal, pharynx normal (moist mucous membranes) Neck: supple, no JVD, no adenopathy Respiratory/Chest: Diffuse wheezing throughout lung wolfe. No rales or rhonchi noted. No respiratory distress or accessory muscle use Saturating at 91% on 2L NC Cardiovascular: regular rate, rhythm, no murmur, normal peripheral pulses Abdomen/GI: normal bowel sounds, soft, non-tender to palpation Extremities/Musculoskelatal: normal inspection, no calf tenderness, normal capillary refill, trace pedal edema Neurologic/Psych: alert, normal mood/affect, oriented x 3 Skin: normal color, warm/dry Principal Diagnosis Discharge Information Discharge Diagnosis Acute Asthma exacerbation Influenza A Pneumonia Discharge Goals Decrease discomfort,Improve function,Improve disease control Discharge Activity Limitations Resume your previous acti Discharge Data Allergies Allergy/AdvReac Type Severity Reaction Status Date / Time Sulfa (Sulfonamide Allergy Severe ANAPHYLAXIS Verified 10/11/18 11:24 Antibiotics) morphine Allergy Intermediate EXTREME Unverified 10/11/18 11:24 ITCHING adhesive Allergy Unknown UNKNOWN Verified 10/11/18 11:24 meperidine Allergy Unknown Verified 10/11/18 11:24 nicotine Allergy Unknown FROM Verified 10/11/18 11:24 NICOTINE PATCH oxycodone Allergy Unknown TYLOX Verified 10/11/18 11:24 sumatriptan Allergy Unknown ANAPHYLAXIS Verified 10/11/18 11:24 amoxicillin AdvReac Severe GI SYMPTOMS Verified 10/11/18 11:24 clavulanic acid AdvReac Severe GI SYMPTOMS Verified 10/11/18 11:24 milk AdvReac Severe UNABLE TO Verified 10/11/18 11:24 URINATE tiotropium AdvReac Severe UNABLE TO Verified 10/11/18 11:24 URINATE venlafaxine AdvReac Severe Nightmare Unverified 10/11/18 11:24 OPIATE ANTAG Allergy Unknown OXYCODONE Uncoded 10/11/18 11:24 Consultations 10/11/18 13:19 ED Decision to Admit Stat Procedures Performed CXR: 1. Fracture of the anterolateral right 10th rib. 2. Chronic fracture deformities of the posterior right sixth and seventh ribs. 3. Persistent atelectasis or scarring in the left midlung. 4. Opacity in the right midlung may relate to a groundglass opacity evident on CT or alternatively related to overlapping shadows from the posterior right rib fracture. Video Swallow; 1. No tracheal aspiration. Intact swallowing mechanism. 2. Full recommendations by speech pathology to follow. Ordered Studies 10/13/18 11:45 FL video swallow Routine Hospital Course (1) Acute respiratory failure with hypoxia: Patient is a 53 yr female who presents with worsening shortness of breath, cough. 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. Continue home dose Seroquel, Topomax, Geodon, Lexapro, Buspar (6) Mood disorder: Follows with [facility]. Continue home medications (7) Closed rib fracture: Rib fractures of 7,8,10 recently 2/2 coughing Pain is controlled (8) ADD (attention deficit disorder): Continue Strattera (9) Post-menopausal bleeding: Follows with Dr. Santiago Outpatient pelvic ultrasound that showed area of thickening of the endometrium to left midline without focal mass Needs short interval follow-up ultrasound is suggested in 3 months (has appt in November) (10) Insomnia: Continue Remeron (11) History of migraine: Continue propranolol as prophylaxis (12) Tobacco use: Nicotine patch DVT Px: SQ Lovenox Code status: FULL PCP: Ania Disposition: Plan to discharge home today Total Time Total Time Spent Total Time Spent (In Minutes): 37 minutes Total Time Includes: Examination of the Patient, Discharge Planning, Medication Reconciliation and Other Discharge Plan Discharge Items Patient Disposition: Home - Self-Care Reason For Visit: FLU A,ACUTE HYPOXIC RESPIRATORY DISTRESS Discharge Diagnosis: Acute Asthma exacerbation Influenza A Pneumonia Discharge Goals: Decrease discomfort, Improve disease control and Improve function Activity: Resume your previous activity Exercise/Sports: Gradually increase as tolerated Non-emergency contact: Primary Care Provider Call non-emergency contact if: you have any medication questions, your symptoms worsen, your pain is not controlled, your pain is worsening, your pain is unusual for you, your pain is concerning for you and you have a fever Diet: Heart Healthy Addtl Provider Instructions: Follow up with on October 21, 2018 at 12:45pm Complete the antibiotic and prednisone course as prescribed Seek immediate medical attention if your symptoms reoccur or worsen Prednisone Taper Course: Start taking prednisone 30mg for 3 days, then 20mg for 3 days, then 10mg for 3 days and STOP Prescriptions: New doxycycline hyclate 100 mg Capsule 100 mg PO BID 4 Days Qty: 8 RF: 0 oseltamivir [Tamiflu] 75 mg Capsule 75 mg PO BID 2 Days Qty: 4 RF: 0 cefuroxime axetil 500 mg tablet 500 mg PO BID 4 Days Qty: 8 RF: 0 prednisone 10 mg tablet 10 mg PO UD 9 Days Qty: 18 RF: 0 Continued multivitamin Tablet 1 tab PO DAILY RF: 0 cyclobenzaprine 10 mg Tablet 10 mg PO HS PRN (Reason: Muscle Spasm) RF: 0 ziprasidone HCl [Geodon] 80 mg capsule 80 mg PO BID RF: 0 furosemide [Lasix] 40 mg tablet 40 mg PO MOWEFR@0900 RF: 0 albuterol sulfate 2.5 mg /3 mL (0.083 %) Solution For Nebulization 2.5 mg INHALATION QID RF: 0 potassium chloride [Klor-Con 10] 10 mEq Tablet Extended Release 10 meq PO DAILY RF: 0 ondansetron 8 mg tablet,disintegrating 8 mg PO Q8H PRN (Reason: Nausea And Vomiting) RF: 0 pantoprazole [Protonix] 40 mg tablet,delayed release (DR/EC) 40 mg PO BID RF: 0 mirtazapine 45 mg tablet 45 mg PO HS RF: 0 montelukast [Singulair] 10 mg tablet 10 mg PO HS RF: 0 dextromethorphan-guaifenesin [Mucinex DM] 30-600 mg Tablet Extended Release 12 Hr 1 tab PO Q12H PRN (Reason: Congestion) RF: 0 topiramate [Topamax] 100 mg tablet 100 mg PO BID RF: 0 lubiprostone [Amitiza] 24 mcg Capsule 24 mcg PO BIDM RF: 0 diclofenac sodium 1 % Gel 4 g TOPICAL QID PRN (Reason: Pain) RF: 0 dicyclomine 20 mg tablet 20 mg PO TID PRN (Reason: Abdominal Pain) RF: 0 benzonatate [Tessalon Perles] 100 mg Capsule 100 mg PO TID PRN (Reason: Cough) RF: 0 nystatin 100,000 unit/gram Powder 1 applic TOPICAL BID RF: 0 escitalopram oxalate [Lexapro] 20 mg tablet 30 mg PO DAILY RF: 0 budesonide-formoterol [Symbicort] 160-4.5 mcg/actuation HFA aerosol inhaler 1 puff Inhalation BID RF: 0 lidocaine [Lidoderm] 5 % adhesive patch,medicated 1 patch TOP DAILY Qty: 30 RF: 0 meloxicam [Mobic] 7.5 mg Tablet 7.5 mg PO DAILY RF: 0 propranolol 40 mg Tablet 40 mg PO BID RF: 0 hydrocodone-acetaminophen [[place]] 5-325 mg tablet 1 tab PO Q6H PRN (Reason: Pain) RF: 0 buspirone 15 mg Tablet 15 mg PO BID RF: 0 atomoxetine [Strattera] 80 mg Capsule 80 mg PO DAILY RF: 0 gabapentin 800 mg tablet 800 mg PO TID RF: 0 quetiapine [Seroquel] 50 mg Tablet 50 mg PO BID RF: 0 Stand-Alone Forms: [facility], Work/School Release (Inpt) Discharge Orders: Discharge Order (Routine); Ordered 10/14/18 Ordered By: Junior Chairez Admission Data Admit Date/Time: 10/11/18 15:11 Attending Provider: Junior Chairez Admit Provider: Andrew Munoz Primary Care Provider: Philomena Jorge Other Providers: Connor Mario ; Andrew Munoz Service: Medical Other Interventions: Discharge Summary Assessment (RN) Last Done: 10/14/18 12:44 DC Date/Time DO NOT enter until pt leaves facility: 10/14/18 13:15
[2018-10-14] MEDS ORDERED: MIRTAZAPINE SOLTAB 15 MG PO SCH (21:00)
[2018-10-15] MEDS ORDERED: predniSONE 20 MG TAB PO SCH (09:00)
== END 2018-10-14 13:15 | disposition home or self-care (01) | DRG 193 ==
LOC: ED 10:22 → SUATTDRO 15:11 → 2E 15:11 → 2W 10-13 16:53

== ENCOUNTER 2019-05-13 09:10 | Observation (INO) ==
[2019-05-13] MEDS ORDERED: NITROGLYCERIN 2% OINTMENT 30GM TUBE EXT STA (10:16)
[2019-05-13 10:56] LABS: Basophils # (auto) 0.02 K/uL (0-0.2); Basophils % (auto) 0.2 %; Eosinophils # (auto) 0.12 K/uL (0-0.5); Eosinophils % (auto) 1.4 %; Hematocrit (blood only) 42.7 % (37-47); Hemoglobin 14.5 g/dL (12.0-16.0); Immature Granulocytes # (auto) 0.02 K/uL (0.00-0.02); Immature Granulocytes % (auto) 0.2 %; Lymphocytes # (auto) 2.71 K/uL (1.2-3.4); Lymphocytes % (auto) 30.6 %; Mean Corpuscular Hemoglobin 30.8 pg (25-34); Mean Corpuscular Volume 90.7 fL (80-100); Mean Platelet Volume 12.1 fL (7.4-10.4); Monocytes # (auto) 0.81 K/uL (0.11-0.59); Monocytes % (auto) 9.1 %; Neutrophils # (auto) 5.18 K/uL (1.4-6.5); Neutrophils % (auto) 58.5 %; Platelet Count 221 K/uL (130-400); RDW Coefficient of Variation 13.4 % (11.5-14.5); RDW Standard Deviation 43.8 fL (36.4-46.3); Red Blood Count 4.71 M/uL (4.2-5.4); White Blood Count 8.86 K/uL (4.8-10.8)
[2019-05-13 11:19] LABS: Alanine Aminotransferase 32 U/L (12-78); Albumin Level 3.4 gm/dl (3.4-5.0); Aspartate Aminotransferase 35 U/L (15-37); BUN Creatinine Ratio 19.7 (10-20); Blood Urea Nitrogen 19 mg/dl (7-18); Calcium 8.8 mg/dl (8.5-10.1); Carbon Dioxide 25 mmol/L (21-32); Chloride 105 mmol/L (98-107); Est GFR (African American) 78.3; Est GFR (Non-African American) 67.5; Glucose 115 mg/dl (70-99); Potassium 3.7 mmol/L (3.5-5.1); Sodium 138 mmol/L (136-145)
--- NOTE | 2019-05-13 11:19 | XRay Report ---
XR chest 1V portable HISTORY: Atypical Chest Pain COMPARISON: Chest 02/27/2019. FINDINGS: There are low lung volumes. No pneumothorax. No pleural effusions. Mild elevation of the ri ght hemidiaphragm, unchanged. Linear density within the left midlung zone favor scarring or atelectas is. Old, healed right-sided rib fractures. Interval progression of the diffuse interstitial vascular thickening suggestive of mild congestive change. IMPRESSION: Low lung volumes with mild congestive change. Electronically signed by: Isaiah Andrade M.D. 05/13/2019 11:17 AM
[2019-05-13 11:22] LABS: Albumin Globulin Ratio 0.8 (0.9-2); Alkaline Phosphatase 119 U/L (45-117); Bilirubin,Total 0.6 mg/dl (0.2-1); Globulin 4.3 gm/dl (2.5-4.0); Total Protein 7.7 gm/dl (6.4-8.2)
[2019-05-13] MEDS ORDERED: OPTIRAY 320 125ml IV PRN (11:58)
--- NOTE | 2019-05-13 12:12 | CT Scan Report ---
CHEST CTA for PULMONARY ARTERIES CT DOSE: 864.25 mGy.cm HISTORY: Right-sided chest pain. TECHNIQUE: Multiaxial CT images of the chest were performed following the intravenous administration of contrast to evaluate the pulmonary arteries. Maximal intensity projection images were also obtaine d. A dose lowering technique was utilized adhering to the principles of ALARA. COMPARISON STUDY: Chest CTA 02/27/2019. FINDINGS: Normal caliber thoracic aorta with no evidence for dissection. The heart is normal in size. No pleural or pericardial effusions. Chronic elevation of the right hemidiaphragm, unchanged. Hepati c steatosis. The visualized spleen is unremarkable. Normal esophagus. No mediastinal or hilar lymphad enopathy. Old, healed right-sided rib fractures. No acute fractures identified. The central airways a re patent. No pneumothorax. Mild mosaic attenuation within the lungs consistent with air trapping. Th is could be due to small airways disease. There is mild central bronchial wall thickening. Bibasilar linear densities consistent with subsegmental atelectasis. Respiratory motion artifact results in sub optimal evaluation of the majority of the segmental and subsegmental pulmonary arteries. However, no definite defects within the central pulmonary arteries to suggest pulmonary embolus. IMPRESSION: 1. No evidence for central pulmonary embolus. 2. Stable chronic elevation of the right hemidiaphragm. 3. Bibasilar linear densities consistent with subsegmental atelectasis. 4. Mild mosaic attenuation within the lungs consistent with air trapping. This could be due to small airways disease. Electronically signed by: Isaiah Andrade M.D. 05/13/2019 12:10 PM
--- NOTE | 2019-05-13 13:11 | History & Physical Report ---
Date of Service May 13, 2019 Assessment & Plan (1) Chest pain, precordial: Has been complaining of chest pain since last night Initial EKG and troponin are unremarkable Admitted to medical telemetry unit with observation Serial troponins and EKG Echocardiogram She has had an dobutamine stress echo in January of this year which was negative May need to have another stress test after discussion with the freelance court stenographer (2) Right-sided thoracic back pain: CTA has been done and thoracic aortic disease has been ruled out No PE on CTA Continue with her usual pain medication (3) Asthma with COPD: Asthma/COPD remains controlled now She continues to smoke Previously 2 pack/day and now 10 cigarettes/day as per Does not have any exacerbation (4) Tobacco use: As above She has been trying to quit smoking (5) ADD (attention deficit disorder): Continue current medications (6) Mood disorder: No acute depression and anxiety at this time (7) GERD (gastroesophageal reflux disease): Has been on PPI twice daily We will continue Has sleep apnea On continuous O2 at home Is going to have second sleep study and possible CPAP following that DVT prophylaxis SCDs for now Increase ambulation CODE STATUS Full History of Present Illness Chief Complaint: Chest pain with the shortness of breath since last night Primary Care Provider: Philomena Jorge DO She is a 54-year-old obese female with significant past medical history of type 2 diabetes, ADD, GERD, asthma/COPD with ongoing smoking, sleep apnea on 2 L oxygen continuously and bipolar disorder has been complaining of chest pain which is worse since last night. Her pain seems to be off-and-on with and without exertion and 8 out of 10 on a scale of 0-10. It is associated with some shortness of breath but no sweating and or dizziness, she did have some nausea last night but no vomiting. She also complains to have pain in between shoulder blades that she right in front of the chest for the last 2 to 3 months was taken off and on. She thinks this pain is different from the chest pain that she has been having since last night. She does not have any fever and/or chills, no cough and or phlegm, no abdominal pain, no problem with with her urine and her bowel habit. He denies to any numbness and tingling involving any of the extremities. She was noted to have high d-dimer in the ER and heparin CTA was negative for any pulmonary embolism, EKG and troponin were unremarkable but given the history of ongoing chest pain with a high CHADS score she is very admitted to medical telemetry unit for continuation of care. Allergies Allergy/AdvReac Type Severity Reaction Status Date / Time adhesive Allergy Severe Blister Verified 05/13/19 10:36 Sulfa (Sulfonamide Allergy Severe ANAPHYLAXIS Verified 05/13/19 10:36 Antibiotics) morphine Allergy Intermediate EXTREME Verified 05/13/19 10:36 ITCHING sumatriptan Allergy Unknown ANAPHYLAXIS Verified 05/13/19 10:36 amoxicillin AdvReac Severe GI SYMPTOMS Verified 05/13/19 10:36 clavulanic acid AdvReac Severe GI SYMPTOMS Verified 05/13/19 10:36 tiotropium AdvReac Severe UNABLE TO Verified 05/13/19 10:36 URINATE venlafaxine AdvReac Severe Nightmare Verified 05/13/19 10:36 Home Medications Home Medications Medication Instructions Recorded Confirmed Type Amitiza 24 mcg PO BIDM 10/06/18 05/13/19 History Symbicort 1 puff INHALATION QAM 10/06/18 05/13/19 History albuterol sulfate 2.5 mg INHALATION QID 10/06/18 05/13/19 History cyclobenzaprine 10 mg PO HS PRN 10/06/18 05/13/19 History dicyclomine 20 mg PO TID PRN 10/06/18 05/13/19 History furosemide [Lasix] 40 mg PO Q OTHER DAY 10/06/18 05/13/19 History nystatin 1 applic TOPICAL BID PRN 10/06/18 05/13/19 History pantoprazole [Protonix] 40 mg PO BID 10/06/18 05/13/19 History topiramate [Topamax] 100 mg PO BID 10/06/18 05/13/19 History ziprasidone HCl [Geodon] 40 mg PO BID 10/06/18 05/13/19 History gabapentin 800 mg PO TID 10/11/18 05/13/19 History propranolol 40 mg PO BID 10/11/18 05/13/19 History lorazepam [Ativan] 2 mg PO Q6H PRN 12/12/18 05/13/19 History alendronate [Fosamax] 70 mg PO WK 01/17/19 05/13/19 History furosemide [Lasix] 80 mg PO Q OTHER DAY 01/17/19 05/13/19 History metformin 1,000 mg PO BID 01/17/19 05/13/19 History Flovent HFA 2 puff INHALATION BID PRN 02/27/19 05/13/19 History hydroxyzine HCl 50 mg PO HS 02/27/19 05/13/19 History sucralfate 10 ml PO QID 02/27/19 05/13/19 History Spiriva with HandiHaler 1 cap INHALATION BID 04/19/19 05/13/19 History aspirin [Aspirin Low Dose] 81 mg PO QAM 04/19/19 05/13/19 History buspirone 10 mg PO TID 04/19/19 05/13/19 History mirtazapine [Remeron SolTab] 45 mg PO HS 04/19/19 05/13/19 History multivitamin 1 tab PO QAM 04/19/19 05/13/19 History ondansetron 8 mg PO Q12H PRN 04/19/19 05/13/19 History spironolactone [Aldactone] 25 mg PO QAM 04/19/19 05/13/19 History benzonatate 100 mg capsule 200 mg PO TID PRN #40 cap 04/20/19 05/13/19 Rx bupropion HCl [Wellbutrin SR] 250 mg PO Q12H #0 04/28/19 05/13/19 History ibuprofen 600 mg PO Q6H PRN #30 tab 05/05/19 05/13/19 Rx montelukast 10 mg tablet 10 mg PO HS #30 tab 05/08/19 05/13/19 Rx dulaglutide [Trulicity] 0.75 mg SUBCUT WK 05/13/19 05/13/19 History empagliflozin [Jardiance] 30 mg PO DAILY 05/13/19 05/13/19 History rosuvastatin 5 mg PO DAILY 05/13/19 05/13/19 History Past Med/Surg History Medical History Insomnia ADD (attention deficit disorder) Osteoarthritis GERD (gastroesophageal reflux disease) controlled Asthma exacerbation with COPD (chronic obstructive pulmonary disease) 2L continuous (increases to 3L with strenuous activity) Bipolar I disorder (05/13/13) Hypertension (Inactive) Anxiety Depression Diabetes mellitus, type 2 NIDDM History of skin cancer melanoma (abdomen) Morbid obesity Osteoporosis Surgical History History of cholecystectomy History of ankle surgery LEFT History of bronchoscopy 12/13/2018 History of cataract surgery BILATERAL History of esophagogastroduodenoscopy (EGD) 01/25/19: MAC sedation at [facility] History of surgical removal of lesion MELANOMA REMOVED FROM ABDOMEN History of total left hip replacement Hx of section Family History Father Heart failure Diabetes Colon cancer Mother Melanoma Social History Preferred Language: Gabonese Communication Ability: Effective Call Or Contact Centre Operator Required: No Beliefs That Will Affect Care: None Current Living Situation: Spouse Feels Safe at Home: Yes Smoking Status: Current some day smoker Tobacco Type: cigarettes and e- cigarettes ; Cigarettes Per Day: 10 cigarettes; total use x 43 years + occasional vaping ; Second Hand Exposure: No ; Hx Alcohol Use: Yes Hx Substance Use: No Review of Systems Review of Systems: All systems reviewed & are unremarkable except as noted in HPI & below Physical Exam Physical Exam: No apparent distress at rest and lying in bed comfortably Constitutional: well developed, well nourished and + morbidly obese; no acute distress and not ill appearing Eyes: PERRL, conjunctivae normal, anicteric sclerae ENMT: external ear and nose normal, oropharynx normal Neck: trachea midline, no thyromegaly Respiratory: normal respiratory effort; no respiratory distress Auscultation: lungs clear to auscultation bilaterally and + diminished lung sounds Cardiovascular: Rate/Rhythm: regular rate and regular rhythm Heart Sounds: no murmur Gastrointestinal (Abdomen): Inspection/Auscultation: abdomen normal to inspection and normal bowel sounds Percussion/Palpation: abdomen soft Musculoskeletal: No acute arthritis in any of the joints Neurologic: moves all extremities; no focal motor deficits Psychiatric: A+Ox3, euthymic affect Lymphatic: no cervical or axillary lymphadenopathy Results & Data Vital Signs (Past 12 Hours) Vital Signs Temp Pulse Pulse Resp BP BP Pulse Ox 05/13/19 11:26 93 H 20 131/84 95 05/13/19 10:50 99 H 18 95 05/13/19 10:40 94 H 19 97 09/28/19 10:30 95 H 19 129/78 94 05/13/19 10:28 94 05/13/19 10:25 94 H 23 125/84 94 05/13/19 10:24 36 H 05/13/19 10:16 94 05/13/19 09:36 36.6 C 96 H 20 146/76 H 98 Laboratory Results Short CBC 05/13/19 Range/Units 10:48 WBC 8.86 (4.8-10.8) K/uL Hgb 14.5 (12.0-16.0) g/dL Hct 42.7 (37-47) % Plt Count 221 (130-400) K/uL BMP 05/13/19 10:48 Sodium 138 Potassium 3.7 Chloride 105 Carbon Dioxide 25 BUN 19 H Creatinine 0.96 Glucose 115 H Calcium 8.8 Liver Function 05/13/19 Range/Units 10:48 Total Bilirubin 0.6 (0.2-1) mg/dl AST 35 (15-37) U/L ALT 32 (12-78) U/L Alkaline Phosphatase 119 H (45-117) U/L Albumin 3.4 (3.4-5.0) gm/dl Medications Administered Current Inpatient Medications Ioversol (Optiray 320 125ml) 118 ml IV ONCE PRN PRN Reason: Interaction Checking Stop: 05/17/19 11:57 Last Admin: 05/13/19 11:59 Dose: 118 ml Documented by: Code Status & VTE Plan VTE Prophylaxis Plan VTE Prophylaxis will be ordered: Yes (1) Right-sided thoracic back pain Chronicity: acute Qualified Code(s): M54.6 - Pain in thoracic spine
[2019-05-13] MEDS ORDERED: BENZONATATE 100 MG CAPSULE PO PRN (15:44)
[2019-05-13] MEDS ORDERED: CYCLOBENZAPRINE HCL 10 MG TAB PO PRN (15:44)
[2019-05-13] MEDS ORDERED: NYSTATIN POWDER 15GM BTL EXT PRN (15:44)
[2019-05-13] MEDS ORDERED: DICYCLOMINE HCL 20 MG TAB PO PRN (15:44)
[2019-05-13] MEDS ORDERED: FLUTICASONE HFA 220 MCG INHALER INH PRN (15:44)
[2019-05-13] MEDS ORDERED: NON-FORMULARY MEDICATION (Dulaglutide [Trulicity] 0.75 MG) SQ SCH (15:44)
[2019-05-13] MEDS ORDERED: LORazepam 1 MG TAB PO PRN (15:57)
[2019-05-13] MEDS: ALBUTEROL 0.083% NEBU SOLN 3 ML VIAL INH SCH ×2 (16:21→19:49)
[2019-05-13] MEDS ORDERED: PHARMACY GLYCEMIC MGMT CONSULT PRN (16:24)
--- NOTE | 2019-05-13 16:27 | Emergency Department Note ---
Entered by Dwight Anderson acting as a scribe for History of Present Illness General Chief complaint: Cardiac Assessment Stated complaint: SOB, CHEST DISCOMFORT, RT SHOULDER PAIN Source: patient History of Present Illness Onset (ago): month(s) (3-4) Location: back (thoracic) and right Pain Consistency: + intermittent Maximum Pain Intensity: 9 Quality: + stabbing and + sharp Exacerbated By: + other (laying down, deep breathing) Associated symptoms: + denies other symptoms (abdominal pain) and + shortness of breath The patient is a 54 y/o female who presents to the ED w/ CC of intermittent, sharp, stabbing, right sided thoracic back pain beginning 3-4 months ago. The patient states her symptoms have been intermittent for the past few months, and her symptoms have become constant for the past few days. She reports her symptoms radiate from her back to underneath her right breast and armpit area. The patient notes she was at work this morning and had an episode of chest heaviness about 6 hours ago that lasted for 5-10 minutes. She states at the time, she was not doing anything strenuous and sitting down. The patient reports movement does not increase her symptoms, but lying down and taking deep breaths make her symptoms worse. She states she is more short of breath than normal as well. She notes she has been evaluated by her PCP and Dr. Gorman, Cardiology, for her symptoms and had a stress echocardiogram performed three months ago. The p atient states it was normal, so she did not have a heart catheterization. She reports her father has a history of a CABGx4 when he was in his early 50s. The patient notes she has a personal history of COPD, HTN, DM, and high cholesterol. She states she is always on oxygen and still smokes half a pack per day. The patient reports she was not able to check her BSG this morning because she was not able to obtain blood. She denies abdominal pain. Home Medications Home Medications Medication Instructions Recorded Confirmed Type Amitiza 24 mcg PO BIDM 10/06/18 05/13/19 History Symbicort 1 puff INHALATION QAM 10/06/18 05/13/19 History albuterol sulfate 2.5 mg INHALATION QID 10/06/18 05/13/19 History cyclobenzaprine 10 mg PO HS PRN 10/06/18 05/13/19 History dicyclomine 20 mg PO TID PRN 10/06/18 05/13/19 History furosemide [Lasix] 40 mg PO Q OTHER DAY 10/06/18 05/13/19 History nystatin 1 applic TOPICAL BID PRN 10/06/18 05/13/19 History pantoprazole [Protonix] 40 mg PO BID 10/06/18 05/13/19 History topiramate [Topamax] 100 mg PO BID 10/06/18 05/13/19 History ziprasidone HCl [Geodon] 40 mg PO BID 10/06/18 05/13/19 History gabapentin 800 mg PO TID 10/11/18 05/13/19 History propranolol 40 mg PO BID 10/11/18 05/13/19 History lorazepam [Ativan] 2 mg PO Q6H PRN 12/12/18 05/13/19 History alendronate [Fosamax] 70 mg PO WK 01/17/19 05/13/19 History furosemide [Lasix] 80 mg PO Q OTHER DAY 01/17/19 05/13/19 History metformin 1,000 mg PO BID 01/17/19 05/13/19 History Flovent HFA 2 puff INHALATION BID PRN 02/27/19 05/13/19 History hydroxyzine HCl 50 mg PO HS 02/27/19 05/13/19 History sucralfate 10 ml PO QID 02/27/19 05/13/19 History Spiriva with HandiHaler 1 cap INHALATION BID 04/19/19 05/13/19 History aspirin [Aspirin Low Dose] 81 mg PO QAM 04/19/19 05/13/19 History buspirone 10 mg PO TID 04/19/19 05/13/19 History mirtazapine [Remeron SolTab] 45 mg PO HS 04/19/19 05/13/19 History multivitamin 1 tab PO QAM 04/19/19 05/13/19 History ondansetron 8 mg PO Q12H PRN 04/19/19 05/13/19 History spironolactone [Aldactone] 25 mg PO QAM 04/19/19 05/13/19 History benzonatate 100 mg capsule 200 mg PO TID PRN #40 cap 04/20/19 05/13/19 Rx bupropion HCl [Wellbutrin SR] 250 mg PO Q12H #0 04/28/19 05/13/19 History ibuprofen 600 mg PO Q6H PRN #30 tab 05/05/19 05/13/19 Rx montelukast 10 mg tablet 10 mg PO HS #30 tab 05/08/19 05/13/19 Rx dulaglutide [Trulicity] 0.75 mg SUBCUT WK 05/13/19 05/13/19 History empagliflozin [Jardiance] 30 mg PO DAILY 05/13/19 05/13/19 History rosuvastatin 5 mg PO DAILY 05/13/19 05/13/19 History Allergies Allergy/AdvReac Type Severity Reaction Status Date / Time adhesive Allergy Severe Blister Verified 05/13/19 10:36 Sulfa (Sulfonamide Allergy Severe ANAPHYLAXIS Verified 05/13/19 10:36 Antibiotics) morphine Allergy Intermediate EXTREME Verified 05/13/19 10:36 ITCHING sumatriptan Allergy Unknown ANAPHYLAXIS Verified 05/13/19 10:36 amoxicillin AdvReac Severe GI SYMPTOMS Verified 05/13/19 10:36 clavulanic acid AdvReac Severe GI SYMPTOMS Verified 05/13/19 10:36 tiotropium AdvReac Severe UNABLE TO Verified 05/13/19 10:36 URINATE venlafaxine AdvReac Severe Nightmare Verified 05/13/19 10:36 Past Med/Surg History Medical History Insomnia ADD (attention deficit disorder) Osteoarthritis GERD (gastroesophageal reflux disease) controlled Asthma exacerbation with COPD (chronic obstructive pulmonary disease) 2L continuous (increases to 3L with strenuous activity) Bipolar I disorder (05/13/13) Hypertension (Inactive) Anxiety Depression Diabetes mellitus, type 2 NIDDM History of skin cancer melanoma (abdomen) Morbid obesity Osteoporosis Surgical History History of cholecystectomy History of ankle surgery LEFT History of bronchoscopy 12/13/2018 History of cataract surgery BILATERAL History of esophagogastroduodenoscopy (EGD) 01/25/19: MAC sedation at [facility] History of surgical removal of lesion MELANOMA REMOVED FROM ABDOMEN History of total left hip replacement Hx of section Family History Father Heart failure Diabetes Colon cancer Mother Melanoma Social History Preferred Language: Bengali Communication Ability: Effective 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 and A total of 10 systems reviewed and were otherwise negative Physical Exam Vital Signs Vital Signs - 24 hr 05/13/19 09:36 05/13/19 10:16 05/13/19 10:24 Temperature 36.6 C Temperature Source Oral Sepsis Recent Fever Within 48 Hours No Sepsis Action Taken by Nursing No Action Required Pulse Rate 96 H Pulse Rate [Left] Pulse Rate from SpO2 Sensor Respiratory Rate 20 36 H Respiratory Effort / Characteristics Respiratory Depth Respiratory Pattern Blood Pressure 146/76 H Blood Pressure [Left Arm] Blood Pressure Mean 99 Blood Pressure Mean [Left Arm] Pulse Oximetry 98 94 Oxygen Delivery Method Nasal Cannula Nasal Cannula Oxygen Flow Rate 2 05/13/19 10:25 05/13/19 10:28 05/13/19 10:30 Temperature Temperature Source Sepsis Recent Fever Within 48 Hours Sepsis Action Taken by Nursing Pulse Rate 94 H 95 H Pulse Rate [Left] Pulse Rate from SpO2 Sensor 95 H 95 H Respiratory Rate 23 19 Respiratory Effort / Characteristics Respiratory Depth Respiratory Pattern Blood Pressure 125/84 129/78 Blood Pressure [Left Arm] Blood Pressure Mean 97 95 Blood Pressure Mean [Left Arm] Pulse Oximetry 94 94 94 Oxygen Delivery Method Room Air Oxygen Flow Rate 2 05/13/19 10:40 05/13/19 10:50 05/13/19 11:26 Temperature Temperature Source Sepsis Recent Fever Within 48 Hours Sepsis Action Taken by Nursing Pulse Rate 94 H 99 H Pulse Rate [Left] 93 H Pulse Rate from SpO2 Sensor 93 H 97 H Respiratory Rate 19 18 20 Respiratory Effort / Characteristics Non-Labored Respiratory Depth Normal Respiratory Pattern Regular Blood Pressure Blood Pressure [Left Arm] 131/84 Blood Pressure Mean Blood Pressure Mean [Left Arm] 99 Pulse Oximetry 97 95 95 Oxygen Delivery Method Nasal Cannula Oxygen Flow Rate 2 05/13/19 12:30 Temperature Temperature Source Sepsis Recent Fever Within 48 Hours Sepsis Action Taken by Nursing Pulse Rate Pulse Rate [Left] 96 H Pulse Rate from SpO2 Sensor Respiratory Rate 20 Respiratory Effort / Characteristics Non-Labored Respiratory Depth Normal Respiratory Pattern Regular Blood Pressure Blood Pressure [Left Arm] 122/66 Blood Pressure Mean Blood Pressure Mean [Left Arm] 84 Pulse Oximetry 98 Oxygen Delivery Method Nasal Cannula Oxygen Flow Rate 2 Constitutional: Vital signs reviewed. Eyes: Pupils are equal round reactive to light. Conjunctiva are noninjected. ENT: Pharynx is clear without erythema or exudate. Mucous membranes are moist. Neck supple without meningeal signs. Respiratory: Clear to auscultation bilaterally. Breath sounds are equal bilaterally. Cardiovascular: Regular rate and rhythm. No rubs or gallops. GI: Soft, nondistended and nontender. Bowel sounds are present. Musculoskeletal: Bilateral lower extremity peripheral edema. No lower extremity tenderness. Integumentary: No cyanosis. Neurological: The patient is awake and alert. No focal deficits. Psychiatric: Normal affect. Course 1009: Past medical records reviewed. The patient was evaluated in room B11A. A complete history and physical exam was performed. 1040: Medical records reviewed from [facility]. The patient had a negative Dobutamin stress echo on March 13. She was also seen by Dr. Gorman of Cardiology for LE edema and possible right heart catheterization. He did not recommend the catheterization because the stress test was negative for IHD and pulmonary HTN. 1142: The patient just had the nitro paste applied upon reevaluation. The patient still has pain. She is agreeable to a CT of the chest. 1221: I reevaluated the patient. Her heaviness is gone and still has some pain on the right side. I reviewed her HEART score and recommended hospitalization. She is in agreement with the treatment plan. 1227: I reviewed the patient's case with Dr. Mario, [facility] Hospitalist. The patient will be evaluated for further management. Administered Medications Albuterol (Ventolin 0.083% 2.5mg/3ml) 2.5 mg INH QIDR AUTUMN Stop: 06/12/19 15:43 Last Admin: 05/13/19 16:21 Dose: 2.5 mg Documented by: [id number] Ioversol (Optiray 320 125ml) 118 ml IV ONCE PRN PRN Reason: Interaction Checking Stop: 05/17/19 11:57 Last Admin: 05/13/19 11:59 Dose: 118 ml Documented by: [id number] Discontinued Medications Nitroglycerin (Nitro-Bid 2%) 0.5 inch EXT NOW STA Stop: 05/13/19 10:17 Last Admin: 05/13/19 11:32 Dose: 0.5 inch Documented by: [id number] Medical Decision Making Differential Diagnosis Differential diagnosis includes: PE, unstable angina, TX, pleurisy, pneumonia. Medical Records Attestation: I reviewed the patient's medical records. I did perform a limited focused review of portions of the patient's old chart on the electronic medical record. The patient was evaluated on May 05 and had a DNC. The biopsy was negative for malignancy. Home Medications Current Medication List: was personally reviewed by me Laboratory Data Attestation: I reviewed the patient's lab results. Result diagrams: 05/13/19 10:48 05/13/19 10:48 Lab Results 05/13/19 05/13/19 05/13/19 Range/Units 10:48 10:48 10:48 WBC 8.86 (4.8-10.8) K/uL RBC 4.71 (4.2-5.4) M/uL Hgb 14.5 (12.0-16.0) g/dL Hct 42.7 (37-47) % MCV 90.7 (80-100) fL MCH 30.8 (25-34) pg MCHC 34.0 (32-36) g/dL RDW Std Deviation 43.8 (36.4-46.3) fL RDW Coeff of Vickie 13.4 (11.5-14.5) % Plt Count 221 (130-400) K/uL MPV 12.1 H (7.4-10.4) fL Immature Gran % (Auto) 0.2 % Neut % (Auto) 58.5 % Lymph % (Auto) 30.6 % Trinity % (Auto) 9.1 % Eos % (Auto) 1.4 % Baso % (Auto) 0.2 % Immature Gran # (Auto) 0.02 (0.00-0.02) K/uL Neut # (Auto) 5.18 (1.4-6.5) K/uL Lymph # (Auto) 2.71 (1.2-3.4) K/uL Trinity # (Auto) 0.81 H (0.11-0.59) K/uL Eos # (Auto) 0.12 (0-0.5) K/uL Baso # (Auto) 0.02 (0-0.2) K/uL POC D-Dimer (0-450) ng/mlFEU Sodium 138 (136-145) mmol/L Potassium 3.7 (3.5-5.1) mmol/L Chloride 105 (98-107) mmol/L Carbon Dioxide 25 (21-32) mmol/L Anion Gap 9.0 (3-11) BUN 19 H (7-18) mg/dl Creatinine 0.96 (0.6-1.2) mg/dl Est Cr Clr Drug Dosing Not Reportable Est GFR ( Amer) 78.3 Est GFR (Non-Af Amer) 67.5 BUN/Creatinine Ratio 19.7 (10-20) Glucose 115 H (70-99) mg/dl Calcium 8.8 (8.5-10.1) mg/dl Total Bilirubin 0.6 (0.2-1) mg/dl AST 35 (15-37) U/L ALT 32 (12-78) U/L Alkaline Phosphatase 119 H (45-117) U/L POC Troponin I (0-0.045) ng/ml Troponin I < 0.015 (0-0.045) ng/ml Total Protein 7.7 (6.4-8.2) gm/dl Albumin 3.4 (3.4-5.0) gm/dl Globulin 4.3 H (2.5-4.0) gm/dl Albumin/Globulin Ratio 0.8 L (0.9-2) 05/13/19 Range/Units 10:49 WBC (4.8-10.8) K/uL RBC (4.2-5.4) M/uL Hgb (12.0-16.0) g/dL Hct (37-47) % MCV (80-100) fL MCH (25-34) pg MCHC (32-36) g/dL RDW Std Deviation (36.4-46.3) fL RDW Coeff of Vickie (11.5-14.5) % Plt Count (130-400) K/uL MPV (7.4-10.4) fL Immature Gran % (Auto) % Neut % (Auto) % Lymph % (Auto) % Trinity % (Auto) % Eos % (Auto) % Baso % (Auto) % Immature Gran # (Auto) (0.00-0.02) K/uL Neut # (Auto) (1.4-6.5) K/uL Lymph # (Auto) (1.2-3.4) K/uL Trinity # (Auto) (0.11-0.59) K/uL Eos # (Auto) (0-0.5) K/uL Baso # (Auto) (0-0.2) K/uL POC D-Dimer > 450 H* (0-450) ng/mlFEU Sodium (136-145) mmol/L Potassium (3.5-5.1) mmol/L Chloride (98-107) mmol/L Carbon Dioxide (21-32) mmol/L Anion Gap (3-11) BUN (7-18) mg/dl Creatinine (0.6-1.2) mg/dl Est Cr Clr Drug Dosing Est GFR ( Amer) Est GFR (Non-Af Amer) BUN/Creatinine Ratio (10-20) Glucose (70-99) mg/dl Calcium (8.5-10.1) mg/dl Total Bilirubin (0.2-1) mg/dl AST (15-37) U/L ALT (12-78) U/L Alkaline Phosphatase (45-117) U/L POC Troponin I < 0.03 (0-0.045) ng/ml Troponin I (0-0.045) ng/ml Total Protein (6.4-8.2) gm/dl Albumin (3.4-5.0) gm/dl Globulin (2.5-4.0) gm/dl Albumin/Globulin Ratio (0.9-2) Imaging Data Radiologist's Impression: Radiology results as stated below per my review and the radiologist's interpretation: XR chest 1V portable HISTORY: Atypical Chest Pain COMPARISON: Chest 02/27/2019. FINDINGS: There are low lung volumes. No pneumothorax. No pleural effusions. Mild elevation of the right hemidiaphragm, unchanged. Linear density within the left midlung zone favor scarring or atelectasis. Old, healed right-sided rib fractures. Interval progression of the diffuse interstitial vascular thickening suggestive of mild congestive change. IMPRESSION: Low lung volumes with mild congestive change. Electronically signed by: Isaiah Andrade M.D. 05/13/2019 11:17 AM CHEST CTA for PULMONARY ARTERIES CT DOSE: 864.25 mGy.cm HISTORY: Right-sided chest pain. TECHNIQUE: Multiaxial CT images of the chest were performed following the intravenous administration of contrast to evaluate the pulmonary arteries. Maximal intensity projection images were also obtained. A dose lowering techn ique was utilized adhering to the principles of ALARA. COMPARISON STUDY: Chest CTA 02/27/2019. FINDINGS: Normal caliber thoracic aorta with no evidence for dissection. The heart is normal in size. No pleural or pericardial effusions. Chronic elevation of the right hemidiaphragm, unchanged. Hepatic steatosis. The visualized spleen is unremarkable. Normal esophagus. No mediastinal or hilar lymphadenopathy. Old, healed right-sided rib fractures. No acute fractures identified. The central airways are patent. No pneumothorax. Mild mosaic attenuation within the lungs consistent with air trapping. This could be due to small airways disease. There is mild central bronchial wall thickening. Bibasilar linear densities consistent with subsegmental atelectasis. Respiratory motion artifact results in suboptimal evaluation of the majority of the segmental and subsegmental pulmonary arteries. However, no definite defects within the central pulmonary arteries to suggest pulmonary embolus. IMPRESSION: 1. No evidence for central pulmonary embolus. 2. Stable chronic elevation of the right hemidiaphragm. 3. Bibasilar linear densities consistent with subsegmental atelectasis. 4. Mild mosaic attenuation within the lungs consistent with air trapping. This could be due to small airways disease. Electronically signed by: Isaiah Andrade M.D. 05/13/2019 12:10 PM ECG Data Attestation: I personally reviewed and interpreted this ECG as follows: Indication: chest pain Rate (beats per minute): 98 Rhythm: normal sinus Findings: + other (Limited interpretation secondary to motion artifact); no PVC and no ST elevation Blood Pressure Blood Pressure Findings: Elevated blood pressure Blood Pressure Disposition: further management by hospitalist DARION Castillo I did evaluate the patient as noted above. The patient is presenting with an episode of chest heaviness as well as right-sided thoracic pain rating into her armpit. The latter pain is not reproducible with movement or palpation. She has had it intermittently and has had a prior stress echocardiogram. IV access was established. The patient was placed on a continuous survey research center director. I did treat the patient with nitroglycerin paste. I did order and personally review the patient's 12-lead EKG as described above. Her twelve-lead EKG does not demonstrate any acute ischemia. I did order and personally reviewed the images of the patient's chest x-ray as described above. Chest x-ray is unremarkable. I did order and review the patient's blood work as noted in the electronic medical record. CBC is normal. Her white count is not elevated. Troponin is negative. Her d-dimer is elevated. After discussion with the patient, I did order a CT of the chest. I did review the images myself as well as the radiology report as described above. There is no evidence of acute pulmonary embolism. I did reassess the patient. She states that her chest pain is now gone. I did discuss the test results with her. I did recommend hospitalization for further evaluation and care. Her heart score is 4. I did discuss case with the hospitalist and therapeutic case manager. Impression & Plan Chest pain, precordial, Right-sided thoracic back pain Discharge Plan Visit Data *Final* Discharge Date/Time: 05/13/19 14:31 Chief Complaint: Cardiac Assessment Stated Complaint: SOB, CHEST DISCOMFORT, RT SHOULDER PAIN ED Provider: Mason Merida Discharge Problem: Chest pain, precordial, Right-sided thoracic back pain Patient Disposition: Admitted As Inpatient Discharge Instructions Interventions: ED Discharge Assessment Last Done: 05/13/19 14:31 Discharge Problem: Right-sided thoracic back pain Qualifiers: Chronicity: acute Qualified Code(s): M54.6 - Pain in thoracic spine The mikeibe's documentation has been prepared under my direction and personally reviewed by me in its entirety. I confirm that the note above accurately reflects all work, treatment, procedures, and medical decision making performed by me.
[2019-05-13] MEDS ORDERED: ZIPRASIDONE HCL 80 MG CAP PO SCH (17:00)
[2019-05-13] MEDS: GABAPENTIN 800 MG TAB PO SCH ×2 (17:16→20:12)
[2019-05-13] MEDS: NICOTINE 14 MG/24 HR PATCH TD SCH (17:17)
[2019-05-13] MEDS: LUBIPROSTONE 8 MCG CAP PO SCH ×2 (17:18→17:34)
[2019-05-13] MEDS: INSULIN ASPART 100 UNITS/ML 3 ML PEN SC SCH ×2 (17:24→20:53)
[2019-05-13] MEDS: SUCRALFATE 1 GM/10 ML UDC PO SCH ×2 (18:13→20:13)
[2019-05-13] MEDS: ZIPRASIDONE HCL 20 MG CAP PO SCH (18:13)
[2019-05-13] MEDS ORDERED: CARBOHYDRATES FOR HYPOGLYCEMIA PO PRN (19:45)
[2019-05-13] MEDS ORDERED: DEXTROSE 50% 50 ML SYRINGE IV PRN (19:45)
[2019-05-13] MEDS ORDERED: GLUCAGON FOR INJ 1 MG VIAL IM PRN (19:45)
[2019-05-13] MEDS ORDERED: GLUCOSE 40% GEL 15 GM TUBE PO PRN (19:45)
[2019-05-13] MEDS ORDERED: GLUCOSE 10 TABS/TUBE PO PRN (19:45)
[2019-05-13] MEDS: BuPROPion SR 150 MG TABCR PO SCH (20:09)
[2019-05-13] MEDS: PROPRANOLOL HCL 20 MG TAB PO SCH (20:12)
[2019-05-13] MEDS: BuPROPion SR 100 MG TABCR PO SCH (20:14)
[2019-05-13] MEDS: TOPIRAMATE 100 MG TAB PO SCH (20:15)
[2019-05-13] MEDS ORDERED: PNEUMOCOCCAL ADMINISTRATION CHARGE ONE (20:45)
[2019-05-13] MEDS ORDERED: PNEUMOCOCCAL POLYSACCHARIDES 25 MCG/0.5 ML VIAL/SYR IM ONE (20:45)
[2019-05-13] MEDS: DOXYCYCLINE HYCLATE 100 MG CAP PO SCH (20:52)
[2019-05-13] MEDS ORDERED: PANTOprazole 40 MG TAB PO SCH (21:00)
[2019-05-13] MEDS ORDERED: MONTELUKAST SODIUM 10 MG TABLET PO SCH (21:00)
[2019-05-13] MEDS ORDERED: MIRTAZAPINE SOLTAB 15 MG PO SCH (21:00)
[2019-05-14] MEDS: SUCRALFATE 1 GM/10 ML UDC PO SCH ×2 (06:28→12:31)
[2019-05-14] MEDS ORDERED: ACETAMINOPHEN 325 MG TAB PO PRN (06:39)
[2019-05-14] MEDS ORDERED: PROMETHAZINE HCL 12.5 MG in SODIUM CHLORIDE 0.9% 50 ML IV PRN (06:39)
[2019-05-14] MEDS ORDERED: PANTOprazole 40 MG TAB PO SCH (06:45)
[2019-05-14 07:19] VITALS: TEMP 97.9
[2019-05-14] MEDS: ALBUTEROL 0.083% NEBU SOLN 3 ML VIAL INH SCH ×3 (07:22→15:25)
[2019-05-14 07:24] VITALS: O2SAT 96
[2019-05-14] MEDS ORDERED: METOCLOPRAMIDE HCL INJ 5 MG/ML 2 ML VIAL IV PRN (07:37)
[2019-05-14] MEDS: LUBIPROSTONE 8 MCG CAP PO SCH ×2 (08:35→08:49)
[2019-05-14] MEDS: TOPIRAMATE 100 MG TAB PO SCH (08:36)
[2019-05-14] MEDS: BuPROPion SR 100 MG TABCR PO SCH (08:37)
[2019-05-14] MEDS: GABAPENTIN 800 MG TAB PO SCH ×2 (08:38→14:54)
[2019-05-14] MEDS: NICOTINE 14 MG/24 HR PATCH TD SCH (08:41)
[2019-05-14] MEDS: PROPRANOLOL HCL 20 MG TAB PO SCH (08:43)
[2019-05-14] MEDS: ZIPRASIDONE HCL 20 MG CAP PO SCH (08:43)
[2019-05-14] MEDS: BuPROPion SR 150 MG TABCR PO SCH (08:44)
[2019-05-14] MEDS: DOXYCYCLINE HYCLATE 100 MG CAP PO SCH (08:45)
[2019-05-14] MEDS: INSULIN ASPART 100 UNITS/ML 3 ML PEN SC SCH ×2 (08:52→13:28)
[2019-05-14] MEDS ORDERED: ASPIRIN 81 MG ECTAB PO SCH (09:00)
[2019-05-14] MEDS ORDERED: EMPAGLIFLOZIN PO SCH (09:00)
[2019-05-14] MEDS ORDERED: SPIRONOLACTONE 25 MG TAB PO SCH (09:00)
[2019-05-14] MEDS ORDERED: BUDESONIDE/FORMOTEROL FUMARATE 160/4.5 60 PUFFS/INHALER INH SCH (09:00)
[2019-05-14] MEDS ORDERED: FUROSEMIDE 80 MG TAB PO SCH (09:00)
[2019-05-14] MEDS ORDERED: MULTIVITAMIN TAB PO SCH (09:00)
[2019-05-14] MEDS ORDERED: ROSUVASTATIN CALCIUM 5 MG TAB PO SCH (09:00)
[2019-05-14] MEDS ORDERED: TIOTROPIUM BROMIDE 5 PUFF/90 MCG INH INH SCH (09:00)
[2019-05-14 11:29] VITALS: BP 97/62
[2019-05-14] MEDS ORDERED: predniSONE 5 MG TAB PO SCH (11:30)
--- NOTE | 2019-05-14 13:52 | Hospitalist Progress Note ---
Date of Service May 14, 2019 Assessment & Plan (1) Chest pain, precordial: Retrosternal chest pain resolved Cardiac Enzymes: Negative EKG: Nonspecific T wave abnormality Echocardiogram: EF 60 to 65%, left ventricular wall motion is normal. No significant valvular pathology Last Dobutamine stress ECHO in February 2019; negative for inducible ischemia Advised to follow up with her Adviser Sales as outpatient Patient agrees with the plan (2) Right-sided thoracic back pain: CTA:No evidence for central pulmonary embolus. Stable chronic elevation of the right hemidiaphragm. Bibasilar linear densities consistent with subsegmental atelectasis. Mild mosaic attenuation within the lungs consistent with air trapping. This could be due to small airways disease. 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 (5) ADD (attention deficit disorder): Continue current medications (6) Mood disorder: No acute issues (7) GERD (gastroesophageal reflux disease): Continue PPI H/O Sleep apnea On continuous O2 at home Planned for second sleep study DVT Px: SCDs for now Increase ambulation CODE STATUS Full Disposition: Plan to discharge home today Subjective Patient is seen and examined at bedside Reports right sided intermittent sharp chest pain/Shoulder pain since 2 months duration Denies nay SOB, dizziness, and pain today Offers no other complaints Review of Systems Review of Systems: All systems reviewed & are unremarkable except as noted in HPI & below Physical Exam Physical Exam: Physical Exam: Vitals signs as noted above General Appearance:Morbidly Obese, no apparent distress Head: normocephalic, Atraumatic Eyes: normal inspection, EOMI Neck: supple, Trachea midline Respiratory/Chest: Decreased breath sounds, CTA Cardiovascular: S1, S2, No murmur Abdomen/GI:Soft, Non tender, Bowel sounds present Extremities/Musculoskelatal:normal inspection, Trace edema Neurologic/Psych:AAOX3, grossly no focal neurological deficits Skin: normal color, warm Results & Data Vital Signs (Past 12 Hours) Vital Signs Temp Pulse Pulse Pulse Resp BP BP 05/14/19 11:28 36.6 C 77 18 97/62 L 05/14/19 08:40 81 123/83 05/14/19 07:23 78 18 05/14/19 07:18 36.6 C 79 20 102/70 05/14/19 07:00 81 05/14/19 04:00 36.5 C 80 18 113/75 Pulse Ox 05/14/19 11:28 96 05/14/19 08:40 05/14/19 07:23 96 05/14/19 07:18 94 05/14/19 07:00 05/14/19 04:00 95 Laboratory Results Cardiac Enzymes 05/13/19 05/13/19 Range/Units 10:48 22:44 Troponin I < 0.015 < 0.015 (0-0.045) ng/ml (1) Right-sided thoracic back pain Chronicity: acute Qualified Code(s): M54.6 - Pain in thoracic spine
--- NOTE | 2019-05-14 13:57 | Pharmacy Report ---
Pharmacy Glycemic Short Note 2 - Date of Service May 14, 2019 - Glycemic Short BSG Results (Last 24 hours): 05/13/19 05/14/19 05/14/19 20:22 07:31 11:50 POC Glucose 159 H 127 H 120 H OUTPATIENT ANTIDIABETIC REGIMEN: * Trulicity 0.75 mg SQ weekly * Jardiance 30mg PO daily * Metformin 1000 mg PO BID * A1c 7.4% (04/28) ASSESSMENT: * 54 yr old T2DM female admitted with chest pain and shortness of breath * Excellent BSG control thus far with only 1 unit of Novolog administered (BSGs have ranged from 115 - 159 mg/dL) * Patient was started on prednisone 15 mg PO daily (for 7 days) this afternoon * will tighten carb coverage * will consider the addition of once daily weight based NPH (given with prednisone) * midnight check will be added if BSGs are consistently > 180 mg/dL this evening PLAN FOR INPATIENT GLYCEMIC CONTROL: * Hold outpatient oral diabetes medications * Basal insulin * none * Bolus insulin * NovoLog per scale ACHS or Q6hrs while NPO * Goal Range: Low 120 mg/dL - High 150 mg/dL * Correction Factor: 30 mg/dL/unit * Nutritional / Prandial insulin per carb ratio of 1 unit per 10 grams CHO consumed
[2019-05-14] MEDS ORDERED: MICONAZOLE NITRATE POWDER 43 GM EXT PRN (14:04)
--- NOTE | 2019-05-14 14:13 | Discharge Summary ---
Date of Service May 14, 2019 Admission HPI Per Admitting Provider She is a 54-year-old obese female with significant past medical history of type 2 diabetes, ADD, GERD, asthma/COPD with ongoing smoking, sleep apnea on 2 L oxygen continuously and bipolar disorder has been complaining of chest pain which is worse since last night. Her pain seems to be off-and-on with and without exertion and 8 out of 10 on a scale of 0-10. It is associated with some shortness of breath but no sweating and or dizziness, she did have some nausea last night but no vomiting. She also complains to have pain in between shoulder blades that she right in front of the chest for the last 2 to 3 months was taken off and on. She thinks this pain is different from the chest pain that she has been having since last night. She does not have any fever and/or chills, no cough and or phlegm, no abdominal pain, no problem with with her urine and her bowel habit. He denies to any numbness and tingling involving any of the extremities. She was noted to have high d-dimer in the ER and heparin CTA was negative for any pulmonary embolism, EKG and troponin were unremarkable but given the history of ongoing chest pain with a high CHADS score she is very admitted to medical telemetry unit for continuation of care. Admission Exam Per Admitting Provider Physical Exam: No apparent distress at rest and lying in bed comfortably Constitutional: well developed, well nourished and + morbidly obese; no acute distress and not ill appearing Eyes: PERRL, conjunctivae normal, anicteric sclerae ENMT: external ear and nose normal, oropharynx normal Neck: trachea midline, no thyromegaly Respiratory: normal respiratory effort; no respiratory distress Auscultation: lungs clear to auscultation bilaterally and + diminished lung sounds Cardiovascular: Rate/Rhythm: regular rate and regular rhythm Heart Sounds: no murmur Gastrointestinal (Abdomen): Inspection/Auscultation: abdomen normal to inspection and normal bowel sounds Percussion/Palpation: abdomen soft Musculoskeletal: No acute arthritis in any of the joints Neurologic: moves all extremities; no focal motor deficits Psychiatric: A+Ox3, euthymic affect Lymphatic: no cervical or axillary lymphadenopathy Principal Diagnosis Atypical Chest Pain Discharge Data Allergies Allergy/AdvReac Type Severity Reaction Status Date / Time adhesive Allergy Severe Blister Verified 05/13/19 10:36 Sulfa (Sulfonamide Allergy Severe ANAPHYLAXIS Verified 05/13/19 10:36 Antibiotics) morphine Allergy Intermediate EXTREME Verified 05/13/19 10:36 ITCHING sumatriptan Allergy Unknown ANAPHYLAXIS Verified 05/13/19 10:36 amoxicillin AdvReac Severe GI SYMPTOMS Verified 05/13/19 10:36 clavulanic acid AdvReac Severe GI SYMPTOMS Verified 05/13/19 10:36 tiotropium AdvReac Severe UNABLE TO Verified 05/13/19 10:36 URINATE venlafaxine AdvReac Severe Nightmare Verified 05/13/19 10:36 Consultations 05/13/19 12:28 ED Decision to Admit Stat Procedures Performed CTA: 1. No evidence for central pulmonary embolus. 2. Stable chronic elevation of the right hemidiaphragm. 3. Bibasilar linear densities consistent with subsegmental atelectasis. 4. Mild mosaic attenuation within the lungs consistent with air trapping. This could be due to small airways disease. ECHO: The study was technically adequate Compared to prior study, there is no significant change Ejection fraction 60 to 65% Left ventricular wall motion is normal No significant valvular pathology Ordered Studies 05/13/19 11:41 CT angio chest PE protocol Stat Hospital Course (1) Chest pain, precordial: Retrosternal chest pain resolved Cardiac Enzymes: Negative EKG: Nonspecific T wave abnormality Echocardiogram: EF 60 to 65%, left ventricular wall motion is normal. No significant valvular pathology Last Dobutamine stress ECHO in February 2019; negative for inducible ischemia Advised to follow up with her Mail Processing Machine Operator as outpatient Patient agrees with the plan (2) Right-sided thoracic back pain: CTA:No evidence for central pulmonary embolus. Stable chronic elevation of the right hemidiaphragm. Bibasilar linear densities consistent with subsegmental atelectasis. Mild mosaic attenuation within the lungs consistent with air trapping. This could be due to small airways disease. Likely Musculoskeletal in origin Will try low dose prednisone course (3) Asthma with COPD: H/O Asthma/COPD Chronic oxygen dependency No signs of exacerbation Continue home inhalers Advised to quit smoking (4) Tobacco use: Cardiac Cath Lab Radiology Technologist to quit smoking (5) ADD (attention deficit disorder): Continue current medications (6) Mood disorder: No acute issues (7) GERD (gastroesophageal reflux disease): Continue PPI H/O Sleep apnea On continuous O2 at home Planned for second sleep study DVT Px: SCDs for now Increase ambulation CODE STATUS Full Disposition: Plan to discharge home today Total Time Total Time Spent Total Time Spent (In Minutes): 25 minutes Total Time Includes: Examination of the Patient, Discharge Planning, Medication Reconciliation, Communication With Other Providers and Other Discharge Plan Discharge Items Patient Disposition: Home - Self-Care Reason For Visit: ATYPICAL CP Discharge Diagnosis: Atypical Chest Pain Activity: Resume your previous activity Exercise/Sports: As tolerated Non-emergency contact: Primary Care Provider and Mail Processing Machine Operator Call non-emergency contact if: you have any medication questions, your symptoms worsen, your pain is not controlled, your pain is worsening, your pain is unusual for you, your pain is concerning for you and you have a fever Follow-up/Referrals: Philomena Jorge DO [Primary Care Provider] - Diet: Carb Consistent or DM2 and Heart Healthy Addtl Attending Provider Instructions: Follow-up with your primary care physician on May 19, 2019 at 11 AM Follow-up with your aquaculture farmer Dr. Gorman on June 07, 2019 at 10 AM Complete the prednisone course as prescribed Consider getting stress test as outpatient if your aquaculture farmer recommends Seek immediate medical attention if your symptoms reoccur or worsen Pending Studies at Discharge: No Stand-Alone Forms: [facility] [place] [place], Work[employer]School Release (Inpt) Medications and DC Order Prescriptions: New prednisone 5 mg Tablet 15 mg PO DAILY Qty: 6 RF: 0 Continued benzonatate [Tessalon Perles] 100 mg capsule 200 mg PO TID PRN (Reason: Cough) Qty: 40 RF: 1 montelukast [Singulair] 10 mg tablet 10 mg PO HS Qty: 30 RF: 5 cyclobenzaprine 10 mg Tablet 10 mg PO HS PRN (Reason: Muscle Spasm) RF: 0 ziprasidone HCl [Geodon] 80 mg capsule 40 mg PO BID RF: 0 furosemide [Lasix] 40 mg tablet 40 mg PO Q OTHER DAY RF: 0 albuterol sulfate 2.5 mg /3 mL (0.083 %) Solution For Nebulization 2.5 mg INHALATION QID RF: 0 pantoprazole [Protonix] 40 mg tablet,delayed release (DR/EC) 40 mg PO BID RF: 0 topiramate [Topamax] 100 mg tablet 100 mg PO BID RF: 0 Amitiza 24 mcg Capsule 24 mcg PO BIDM RF: 0 dicyclomine 20 mg tablet 20 mg PO TID PRN (Reason: Abdominal Pain) RF: 0 nystatin 100,000 unit/gram Powder 1 applic TOPICAL BID PRN (Reason: Rash) RF: 0 Symbicort 160-4.5 mcg/actuation HFA aerosol inhaler 1 puff Inhalation QAM RF: 0 lorazepam [Ativan] 2 mg Tablet 2 mg PO Q6H PRN (Reason: Anxiety) RF: 0 hydroxyzine HCl 50 mg Tablet 50 mg PO HS RF: 0 sucralfate 100 mg/mL Suspension 10 ml PO QID RF: 0 Flovent HFA 220 mcg/actuation Hfa Aerosol Inhaler 2 puff INHALATION BID PRN (Reason: Shortness Of Breath) RF: 0 propranolol 40 mg Tablet 40 mg PO BID RF: 0 gabapentin 800 mg tablet 800 mg PO TID RF: 0 metformin 500 mg Tablet 1,000 mg PO BID RF: 0 furosemide [Lasix] 80 mg Tablet 80 mg PO Q OTHER DAY RF: 0 alendronate [Fosamax] 70 mg Tablet 70 mg PO WK RF: 0 multivitamin Tablet 1 tab PO QAM RF: 0 mirtazapine [Remeron SolTab] 45 mg Tablet,Disintegrating 45 mg PO HS RF: 0 aspirin [Aspirin Low Dose] 81 mg Tablet,Delayed Release (Dr/Ec) 81 mg PO QAM RF: 0 spironolactone [Aldactone] 25 mg Tablet 25 mg PO QAM RF: 0 ondansetron 8 mg Tablet,Disintegrating 8 mg PO Q12H PRN (Reason: Nausea) RF: 0 buspirone 10 mg Tablet 10 mg PO TID RF: 0 Spiriva with HandiHaler 18 mcg Capsule, W/Inhalation Device 1 cap INHALATION BID RF: 0 bupropion HCl [Wellbutrin SR] 100 mg Tablet Sustained-Release 12 Hr 250 mg PO Q12H Qty: 0 RF: 0 ibuprofen 600 mg Tablet 600 mg PO Q6H PRN (Reason: pain) Qty: 30 RF: 0 rosuvastatin 5 mg tablet 5 mg PO DAILY RF: 0 Jardiance 25 mg tablet 30 mg PO DAILY RF: 0 Trulicity 0.75 mg/0.5 mL pen injector 0.75 mg subcut WK RF: 0 doxycycline hyclate 100 mg Capsule 100 mg PO BID RF: 0 Discharge Orders: Discharge Order (Routine); Ordered 05/14/19 Ordered By: Junior Chairez Admission Data Admit Date/Time: 05/13/19 12:50 Attending Provider: Junior Chairez Admit Provider: Connor Mario Primary Care Provider: Philomena Jorge Other Providers: Connor Mario Other Interventions: Discharge Summary Assessment (RN) Last Done: 05/14/19 14:58 DC Date/Time DO NOT enter until pt leaves facility: 05/14/19 15:15
[2019-05-14 14:50] VITALS: PULSE 78
== END 2019-05-14 15:15 | disposition home or self-care (01) ==
LOC: ED 09:10 → 2W 09:10 → SUATTDRO 12:50 → 2W 14:31

== ENCOUNTER 2023-02-03 22:50 | Observation (INO) ==
[2023-02-03 23:43] LABS: Basophils # (auto) 0.06 K/uL (0-0.2); Basophils % (auto) 0.3 %; Eosinophils # (auto) 0.29 K/uL (0-0.50); Eosinophils % (auto) 1.4 %; Hematocrit (blood only) 44.1 % (37.0-47.0); Hemoglobin 15.7 g/dl (12.0-16.0); Immature Granulocytes # (auto) 0.09 K/uL (0.01-0.20); Immature Granulocytes % (auto) 0.4 %; Lymphocytes % (auto) 10.9 %; Mean Corpuscular Hemoglobin 30.8 pg (25.0-34.0); Mean Corpuscular Hgb Conc 35.6 g/dL (32.0-36.0); Mean Corpuscular Volume 86.6 fL (80.0-100.0); Mean Platelet Volume 11.9 fL (9.4-12.4); Monocytes # (auto) 1.28 K/uL (0.11-0.59); Monocytes % (auto) 6.1 %; Neutrophils # (auto) 17.06 K/uL (1.40-6.50); Neutrophils % (auto) 80.9 %; Platelet Count 275 K/uL (130-400); RDW Coefficient of Variation 12.7 % (11.5-14.5); Red Blood Count 5.09 M/uL (4.20-5.40); White Blood Count 21.08 K/ul (4.8-10.8)
[2023-02-03] MEDS: SODIUM CHLORIDE 0.9% 1000ML 1,000 ML IV SCH (23:50)
[2023-02-03 23:51] LABS: Albumin Globulin Ratio 1.3 (0.9-2); Albumin Level 3.9 gm/dl (3.4-5.0); BUN Creatinine Ratio 11.5 (10-20); Bilirubin,Total 0.7 mg/dl (0.2-1.0); Calcium 8.7 mg/dl (8.6-10.3); Creatinine Clr Calc Pharmacy 35.7 ml/min; Est GFR (African American) 35.1 ml/min; Est GFR (Non-African American) 30.3 ml/min; Globulin 2.9 gm/dl (2.5-4.0); Magnesium 1.9 mg/dl (1.7-2.4); Potassium 2.9 mmol/L (3.5-5.1); Total Protein 6.8 gm/dl (6.0-8.3)
[2023-02-04] MEDS ORDERED: ACETAMINOPHEN 1,000 MG/100 ML VIAL IV STA (00:14)
[2023-02-04] MEDS ORDERED: FAMOTIDINE 20MG IV PUSH 20 MG/5 ML SYR IV STA (00:14)
[2023-02-04] MEDS ORDERED: ONDANSETRON INJ 2 MG/ML 2 ML VIAL IV STA (00:14)
--- NOTE | 2023-02-04 00:17 | Emergency Department Note ---
Impression & Plan Nausea & vomiting, Diarrhea, Dehydration, Hypokalemia, LETI (acute kidney injury) ED Provider Note ED Provider Note NAME: XIAO EL AGE:57 SEX: Female : 1965 ARRIVES VIA: Private vehicle INFORMANT: Patient ED PROVIDER(s): Priyanka Garcia DO CHIEF COMPLAINT: Nausea, vomiting, diarrhea HPI: This is a 57-year-old female presents emergency department due to concern for 3 days of nausea, vomiting, and diarrhea. She states symptoms began Wednesday evening. She has not noted any hematemesis, melena, or hematochezia. She states she is also had some accompanying left lower quadrant pain. She states she has tried to sip water intermittently however has still been nauseated and had vomiting. She states yesterday she tried to eat spaghetti and immediately vomited. Patient does have a history of GERD. Patient states she does have a history of COPD additionally as well as heart problems. She wears oxygen daily at home. Patient states she has felt very weak and dizzy over the last 3 days. Patient denies any recent travel, sick contacts, change in diet or concern for foodborne illness. Patient relayed to nursing staff that her dosing of her Mounjaro was also recently increased on Wednesday. PAST MEDICAL HISTORY:See Below PAST SURGICAL HISTORY:See Below FAMILY HISTORY:See Below SOCIAL HISTORY:See Below HOME MEDICATIONS:See Below ALLERGIES:See Below VITALS:See Below PHYSICAL EXAMINATION: GENERAL: alert, well appearing, well nourished, no distress, non-toxic EYE EXAM: normal conjunctiva, PERRL and EOM's grossly intact OROPHARYNX: no exudate, no erythema, lips, buccal mucosa, and tongue normal and mucous membranes are moist NECK: supple, no nuchal rigidity, no adenopathy, non-tender LUNGS: Clear to auscultation. Normal chest wall mechanics, no w/r/r HEART: no murmurs, S1 normal and S2 normal ABDOMEN: abdomen soft, non-tender, normo-active bowel sounds, no masses, no re bound or guarding. BACK: Back is symmetrical on inspection and there is no deformity, no midline te nderness, no CVA tenderness. SKIN: no rashes, petechiae, orbruising UPPER EXTREMITIES: upper extremities are grossly normal. FROM, nml pulses b/l. LOWER EXTREMITIES: No pitting edema. FROM, nml pulses b/l. NEURO EXAM: Normal sensorium, cranial nerves II-XII grossly intact, normal speech, no facial droop,nogross weakness of arms, no gross weakness of legs. Gross sensation intact. No ataxia. Vital Signs: reviewed and remarkable Differential Diagnosis: Viral syndrome, foodborne illness, bowel obstruction, medication ADR, LETI, dehydration, electrolyte abnormality, diverticulitis, colitis, GI bleed, as well as others were considered MEDICAL DECISION MAKING: This is a 57-year-old female presents emergency department following 3 days of vomiting and diarrhea with increased weakness. Patient appeared clinically dehydrated. She was afebrile and vital signs stable. Labs drawn and sent, IV established, EKG performed at bedside and interpreted by me, patient monitored on telemetry. She was started on gentle IV fluid hydration until such time as a prior echo and cardiology notes could be reviewed. Patient ultimately sent for CT imaging due to the focal area of left lower quadrant pain with accompanying GI symptoms. Patient CT reassuring. Patient noted to have significant leukocytosis, and so blood cultures, procalcitonin were added, patient given empiric cefepime. Patient's creatinine 1.8 which is elevated compared to prior and I suspect is likely LETI secondary to her dehydration from GI losses. Patient was given IV Tylenol as well as Zofran and Pepcid. [facility]. It is unclear if the recent increase in her 1 medication on Wednesday could have triggered the symptoms as she denied any other obvious etiology. Consultation(s): 0220: [facility] Dr[facility] Arenas[facility] Treatment Provided: See below Diagnostics Interpreted By Me: -ECG: Normal sinus at 77, normal axis, normal QRS, prolonged QT noted, no other acute ST/T wave changes -Cardiac Monitoring: An order was placed for continuous cardiac monitoring. The monitor shows a rate of 80 with normal sinus rhythm. -Laboratory studies: As stated above and show below. -Imaging studies: [] Triage Nursing Note Reviewed Prior/Outside Records Reviewed -prior echo, pulmonology note Past Med/Surg History Medical History ADD (attention deficit disorder) Anxiety and depression Asthma exacerbation with COPD (chronic obstructive pulmonary disease) 2L continuous (increases to 3L with strenuous activity) Bipolar I disorder (05/13/13) Chronic obstructive pulmonary disease Diabetes mellitus, type 2 NIDDM GERD (gastroesophageal reflux disease) History of Madden's esophagus History of skin cancer melanoma (abdomen) Hx of suicide attempt 1995 Hyperlipidemia Hypertension Insomnia Left-sided heart failure Leg swelling BLE "REASON FOR LASIX" Migraine Morbid obesity MARY BETH (obstructive sleep apnea) USES BIPAP Osteoarthritis Peripheral neuropathy Restless leg syndrome Surgical History History of ankle surgery LEFT History of bronchoscopy 12/13/2018 History of cardiac cath 8 MONTHS AGO? NO STENTS ([facility]) History of cataract surgery BILATERAL History of cholecystectomy History of colonoscopy History of dilatation and curettage History of esophagogastroduodenoscopy (EGD) 01/25/19: MAC sedation at [facility] History of surgical removal of lesion MELANOMA REMOVED FROM ABDOMEN History of tooth extraction History of total left hip replacement Hx of section X1 Family History Father Colon cancer Diabetes Heart failure Family history of diabetes mellitus Family hx of colon cancer Mother Melanoma Grandfather (Paternal) Family history of diabetes mellitus Family hx of colon cancer Grandmother (Paternal) Family history of diabetes mellitus Sister Family history of diabetes mellitus Brother Family history of diabetes mellitus Other No family history of adverse response to anesthesia Social History Smoking Status: Former smoker Tobacco Type: Cigarettes Cigarettes Per Day: OCCAS. "TRYING TO QUIT"; Second Hand Exposure: No; Do You Dip or Chew Tobacco: No; Hx Alcohol Use: No Hx Substance Use: No Preferred Language: Icelandic Communication Ability: Effective Visual Impairment: No Limitations Immunopathologist Required: No Beliefs That Will Affect Care: None Current Living Situation: Spouse Other Information That Helps Us Care for You: No Feels Safe at Home: Yes Safety Concerns: Feels Safe At This Time Assistive Devices: Denture - Upper, Denture - Lower, Glasses, Oxygen - at Night and Walker Allergies Allergies Allergy/AdvReac Type Severity Reaction Status Date / Time Sulfa (Sulfonamide Allergy Severe ANAPHYLAXIS Verified 10/02/20 08:05 Antibiotics) sumatriptan Allergy Severe ANAPHYLAXIS Verified 10/02/20 08:05 adhesive Allergy Intermediate Blister Verified 10/02/20 08:05 morphine Allergy Intermediate EXTREME Verified 10/02/20 08:05 ITCHING amoxicillin AdvReac Intermediate GI SYMPTOMS Verified 10/02/20 08:05 clavulanic acid AdvReac Intermediate GI SYMPTOMS Verified 10/02/20 08:05 venlafaxine AdvReac Intermediate Nightmare Verified 10/02/20 08:05 Home Meds Home Medications Medication Instructions Recorded Confirmed pantoprazole 40 mg tablet,delayed 40 mg PO BID 10/06/18 02/04/23 release (Protonix) alendronate 70 mg tablet (Fosamax) 70 mg PO WK 01/17/19 02/04/23 furosemide 80 mg tablet (Lasix) 80 mg PO Q OTHER DAY 01/17/19 02/04/23 aspirin 81 mg tablet,delayed 81 mg PO QAM 04/19/19 02/04/23 release (Rhys Low Dose Aspirin) spironolactone 25 mg tablet 25 mg PO QAM 04/19/19 02/04/23 (Aldactone) empagliflozin 25 mg tablet 25 mg PO QAM 05/13/19 02/04/23 (Jardiance) dicyclomine 20 mg tablet 20 mg PO Q8 PRN Abdominal Pain 01/18/20 02/04/23 metoprolol succinate 25 mg capsule 25 mg PO QAM 03/12/20 02/04/23 sprinkle, ext. release 24 hr ziprasidone HCl 60 mg capsule 60 mg PO BID 03/12/20 02/04/23 (Geodon) ascorbic acid (vitamin C) 1,000 mg 1 g PO QAM 09/27/20 02/04/23 tablet (Vitamin C) cholecalciferol (vitamin D3) 25 25 mcg PO QAM 09/27/20 02/04/23 mcg (1,000 unit) capsule (Vitamin D3) furosemide 40 mg tablet (Lasix) 60 mg PO Q2D 09/27/20 02/04/23 lithium carbonate 450 mg 450 mg PO AMHS 09/27/20 02/04/23 tablet,extended release lorazepam 1 mg tablet 1 mg PO DAILY PRN Panic Attack(S) 09/27/20 02/04/23 losartan 50 mg tablet 50 mg PO QAM 09/27/20 02/04/23 multivitamin 1 tab PO QAM 09/27/20 02/04/23 omega-3 acid ethyl esters 1 gram 2 cap PO BID 09/27/20 02/04/23 capsule (Lovaza) rosuvastatin 10 mg tablet (Crestor) 10 mg PO QAM 09/27/20 02/04/23 albuterol sulfate 0.63 mg/3 mL 0.63 mg continuous nebulization Q6 02/04/23 02/04/23 solution for nebulization PRN Shortness Of Breath Or Wheezing baclofen 5 mg tablet 2.5 mg PO TID PRN Muscle Spasm 02/04/23 02/04/23 diclofenac sodium 1 % topical gel 4 g topical QID 02/04/23 02/04/23 duloxetine 30 mg capsule,delayed 30 mg PO QAM 02/04/23 02/04/23 release duloxetine 60 mg capsule,delayed 60 mg PO QAM 02/04/23 02/04/23 release hydroxyzine HCl 10 mg tablet 10 mg PO QAM 02/04/23 02/04/23 hydroxyzine HCl 25 mg tablet 25 mg PO HS 02/04/23 02/04/23 hydroxyzine HCl 50 mg tablet 50 mg PO HS 02/04/23 02/04/23 insulin glargine 100 unit/mL (3 20 unit subcut QAM 02/04/23 02/04/23 mL) subcutaneous pen (Lantus Solostar U-100 Insulin) ketoconazole 2 % shampoo 1 applic topical .2-3 TIMES PER 02/04/23 02/04/23 WEEK lithium carbonate 150 mg capsule 150 mg PO HS 02/04/23 02/04/23 memantine 14 mg capsule 14 mg PO QAM 02/04/23 02/04/23 sprinkle,extended release 24hr ondansetron 4 mg disintegrating 4 mg translingual Q8 nausea 02/04/23 02/04/23 tablet oxybutynin chloride 10 mg 10 mg PO QAM 02/04/23 02/04/23 tablet,extended release 24 hr tirzepatide 15 mg/0.5 mL 15 mg subcut WK 02/04/23 02/04/23 subcutaneous pen injector (Belem) varenicline 1 mg tablet 1 mg PO AMHS 02/04/23 02/04/23 Previous Rx's Medication Instructions Recorded nebulizers #1 ea 09/18/19 BiPap Machine #1 ea 10/31/19 budesonide-formoterol HFA 160 2 puff inhalation BID #10.2 grams 03/12/20 mcg-4.5 mcg/actuation aerosol inhaler (Symbicort) CPAP Supplies #1 ea 03/15/20 montelukast 10 mg tablet 10 mg PO DAILY #90 tabs 03/20/20 tiotropium bromide 18 mcg capsule 1 cap inhalation DAILY #30 09/03/20 with inhalation device (Spiriva inhalations with HandiHaler) Results & Data (ED) Vital Signs Vital Signs - 24 hr 02/03/23 23:02 02/03/23 23:12 02/03/23 23:10 Temperature 36.3 C L Temperature Source Oral Pulse Rate 79 78 78 Pulse Rate from SpO2 Sensor 78 Respiratory Rate 22 18 Blood Pressure 115/70 Blood Pressure Mean 85 Blood Pressure Position Sitting Pulse Oximetry 94 92 Oxygen Delivery Method Nasal Cannula Oxygen Flow Rate 2 Sepsis Recent Fever Within 48 Hours No Sepsis New/Unexplained Change in Mental Status No Sepsis Action Taken by Nursing No Action Required 02/03/23 23:30 02/04/23 00:00 02/04/23 00:44 Temperature Temperature Source Pulse Rate 79 76 82 Pulse Rate from SpO2 Sensor 80 77 83 Respiratory Rate 22 22 23 Blood Pressure 104/40 L Blood Pressure Mean 61 Blood Pressure Position Pulse Oximetry 96 96 99 Oxygen Delivery Method Oxygen Flow Rate Sepsis Recent Fever Within 48 Hours Sepsis New/Unexplained Change in Mental Status Sepsis Action Taken by Nursing 02/04/23 01:00 02/04/23 01:30 02/04/23 02:00 Temperature Temperature Source Pulse Rate 76 77 Pulse Rate from SpO2 Sensor 76 77 Respiratory Rate 20 21 Blood Pressure 90/50 L 108/69 Blood Pressure Mean 63 82 Blood Pressure Position Pulse Oximetry 96 99 Oxygen Delivery Method Oxygen Flow Rate Sepsis Recent Fever Within 48 Hours Sepsis New/Unexplained Change in Mental Status Sepsis Action Taken by Nursing 02/04/23 02:00 02/04/23 02:30 Temperature Temperature Source Pulse Rate 77 76 Pulse Rate from SpO2 Sensor 78 76 Respiratory Rate 21 23 Blood Pressure Blood Pressure Mean Blood Pressure Position Pulse Oximetry 98 100 Oxygen Delivery Method Oxygen Flow Rate Sepsis Recent Fever Within 48 Hours Sepsis New/Unexplained Change in Mental Status Sepsis Action Taken by Nursing Laboratory Data 02/03/23 23:10 02/03/23 23:10 Lab Results 02/03/23 02/03/23 02/04/23 Range/Units 23:10 23:10 00:00 WBC 21.08 H (4.8-10.8) K/ul RBC 5.09 (4.20-5.40) M/uL Hgb 15.7 (12.0-16.0) g/dl Hct 44.1 (37.0-47.0) % MCV 86.6 (80.0-100.0) fL MCH 30.8 (25.0-34.0) pg MCHC 35.6 (32.0-36.0) g/dL RDW Std Deviation 40.0 (36.4-46.3) fL RDW Coeff of Vickie 12.7 (11.5-14.5) % Plt Count 275 (130-400) K/uL MPV 11.9 (9.4-12.4) fL Immature Gran % (Auto) 0.4 % Neut % (Auto) 80.9 % Lymph % (Auto) 10.9 % [place] % (Auto) 6.1 % Eos % (Auto) 1.4 % Baso % (Auto) 0.3 % Neut # (Auto) 17.06 H (1.40-6.50) K/uL Lymph # (Auto) 2.30 (1.2-3.4) K/uL [place] # (Auto) 1.28 H (0.11-0.59) K/uL Eos # (Auto) 0.29 (0-0.50) K/uL Baso # (Auto) 0.06 (0-0.2) K/uL Immature Gran # (Auto) 0.09 (0.01-0.20) K/uL Sodium 132 L (136-145) mmol/L Potassium 2.9 L (3.5-5.1) mmol/L Chloride 99 (98-107) mmol/L Carbon Dioxide 19 L (21-32) mmol/L Anion Gap 14 H (3-11) BUN 21 (6-23) mg/dl Creatinine 1.83 H (0.6-1.2) mg/dl Est Cr Clr Drug Dosing 35.7 ml/min Est GFR ( Amer) 35.1 ml/min Est GFR (Non-Af Amer) 30.3 ml/min BUN/Creatinine Ratio 11.5 (10-20) Glucose 137 H (70-99(Fasting)) mg/dl Calcium 8.7 (8.6-10.3) mg/dl Magnesium 1.9 (1.7-2.4) mg/dl Total Bilirubin 0.7 (0.2-1.0) mg/dl AST 17 (13-39) U/L ALT 31 (7-52) U/L Alkaline Phosphatase 126 H (34-104) U/L Total Protein 6.8 (6.0-8.3) gm/dl Albumin 3.9 (3.4-5.0) gm/dl Globulin 2.9 (2.5-4.0) gm/dl Albumin/Globulin Ratio 1.3 (0.9-2) Lipase 18 (11-82) U/L Procalcitonin 0.11 (0-0.5) ng/ml SARS-CoV-2, RNA, NAAT (NEGATIVE) 02/04/23 Range/Units 02:02 WBC (4.8-10.8) K/ul RBC (4.20-5.40) M/uL Hgb (12.0-16.0) g/dl Hct (37.0-47.0) % MCV (80.0-100.0) fL MCH (25.0-34.0) pg MCHC (32.0-36.0) g/dL RDW Std Deviation (36.4-46.3) fL RDW Coeff of Vickie (11.5-14.5) % Plt Count (130-400) K/uL MPV (9.4-12.4) fL Immature Gran % (Auto) % Neut % (Auto) % Lymph % (Auto) % [place] % (Auto) % Eos % (Auto) % Baso % (Auto) % Neut # (Auto) (1.40-6.50) K/uL Lymph # (Auto) (1.2-3.4) K/uL [place] # (Auto) (0.11-0.59) K/uL Eos # (Auto) (0-0.50) K/uL Baso # (Auto) (0-0.2) K/uL Immature Gran # (Auto) (0.01-0.20) K/uL Sodium (136-145) mmol/L Potassium (3.5-5.1) mmol/L Chloride (98-107) mmol/L Carbon Dioxide (21-32) mmol/L Anion Gap (3-11) BUN (6-23) mg/dl Creatinine (0.6-1.2) mg/dl Est Cr Clr Drug Dosing ml/min Est GFR ( Amer) ml/min Est GFR (Non-Af Amer) ml/min BUN/Creatinine Ratio (10-20) Glucose (70-99(Fasting)) mg/dl Calcium (8.6-10.3) mg/dl Magnesium (1.7-2.4) mg/dl Total Bilirubin (0.2-1.0) mg/dl AST (13-39) U/L ALT (7-52) U/L Alkaline Phosphatase (34-104) U/L Total Protein (6.0-8.3) gm/dl Albumin (3.4-5.0) gm/dl Globulin (2.5-4.0) gm/dl Albumin/Globulin Ratio (0.9-2) Lipase (11-82) U/L Procalcitonin (0-0.5) ng/ml SARS-CoV-2, RNA, NAAT NEGATIVE (NEGATIVE) Administered Medications Potassium Chloride/Sodium Chloride (Normal Saline W/20 Meq Kcl) 20 meq in 1,000 mls @ 100 mls/hr IV .Q10H AUTUMN Stop: 03/06/23 04:40 Last Admin: 02/04/23 05:21 Dose: 100 mls/hr Documented By: SHASHI Discontinued Medications Sodium Chloride (Nss 1000ml) 1,000 mls @ 250 mls/hr IV .Q4H AUTUMN Stop: 03/05/23 23:44 Last Admin: 02/04/23 05:13 Dose: Not Given Documented By: Infusion: 02/04/23 05:13 Dose: 0 mls/hr Documented By: Admin: 02/03/23 23:50 Dose: 250 mls/hr Documented By: TAMIR Acetaminophen (Ofirmev) 1,000 mg in 100 mls @ 400 mls/hr IV NOW STA Stop: 02/04/23 00:28 Last Infusion: 02/04/23 01:59 Dose: 0 mls/hr Documented By: Admin: 06/22/23 00:44 Dose: 400 mls/hr Documented By: TAMIR Famotidine (Pepcid 20mg Iv Push) 20 mg in 5 mls @ 2.5 mls/min IV NOW STA Stop: 02/04/23 00:15 Last Admin: 02/04/23 00:44 Dose: 2.5 mls/min Documented By: TAMIR Cefepime HCl (Maxipime) 2,000 mg in 20 mls @ 5 mls/min IV NOW STA; Protocol Stop: 02/04/23 02:08 Last Admin: 02/04/23 03:06 Dose: 5 mls/min Documented By: TAMIR Ioversol (Optiray 320 100ml) 100 ml IV ONCE ONE Stop: 02/04/23 00:49 Last Admin: 02/04/23 00:48 Dose: 95 ml Documented By: JESSICA Ondansetron HCl (Ondansetron Inj 2 Mg/Ml 2 Ml Vial) 4 mg IV NOW STA Stop: 02/04/23 00:15 Last Admin: 02/04/23 00:44 Dose: 4 mg Documented By: TAMIR Imaging Data Radiologist's Impression: Abdomen/Pelvis CT 02/04/23 00:14 Exam(s): CT ABDOMEN + PELVIS With Contrast IV Amt: 95 ML OPTIRAY 320 EXAM: CT Abdomen and Pelvis With Intravenous Contrast CLINICAL HISTORY: Reason for exam: LLQ pain, n/v/d. TECHNIQUE: Axial computed tomography images of the abdomen and pelvis with intravenous contrast. CTDI is 29 mGy and DLP is 1529.86 mGy-cm. Automated exposure control was utilized for the study. A dose lowering technique was utilized adhering to the principles of ALARA. CONTRAST: Patient received 95 ML OPTIRAY 320 of IV contrast COMPARISON: 06/20/2018 FINDINGS: Lung bases: Lung bases demonstrate bilateral dependent atelectasis. ABDOMEN: Liver: Unremarkable. No mass. Gallbladder and bile ducts: Gallbladder has been removed. No ductal dilation. Pancreas: Unremarkable. No mass. No ductal dilation. Spleen: Unremarkable. No splenomegaly. Adrenals: Unremarkable. No mass. Kidneys and ureters: Unremarkable. No solid mass. No hydronephrosis. Stomach and bowel: Unremarkable. No obstruction. No mucosal thickening. PELVIS: Appendix: No findings to suggest acute appendicitis. Bladder: Unremarkable. No mass. Reproductive: Unremarkable as visualized. ABDOMEN and PELVIS: Intraperitoneal space: Unremarkable. No free air. No significant fluid collection. Bones/joints: No acute fracture. No dislocation. Soft tissues: Unremarkable. Vasculature: Unremarkable. No abdominal aortic aneurysm. Lymph nodes: Unremarkable. No enlarged lymph nodes. IMPRESSION: No acute findings in the abdomen or pelvis. Electronically signed by: Vishal Gregory M.D. 02/04/23 01:40 AM Discharge Plan Visit Data Chief Complaint: Illness Stated Complaint: CHEST PAIN AFTER EATING, VOMITED, BLURRY VISION ED Provider: Priyanka Garcia Discharge Problem: Nausea & vomiting, Diarrhea, Dehydration, Hypokalemia, LETI (acute kidney injury) Patient Disposition: Admitted As Inpatient Discharge Instructions Interventions: ED Discharge Assessment Last Done: 02/04/23 04:44
[2023-02-04] MEDS ORDERED: OPTIRAY 320 100ml IV ONE (00:48)
--- NOTE | 2023-02-04 01:41 | CT Scan Report ---
Exam(s): CT ABDOMEN + PELVIS With Contrast IV Amt: 95 ML OPTIRAY 320 EXAM: CT Abdomen and Pelvis With Intravenous Contrast CLINICAL HISTORY: Reason for exam: LLQ pain, n/v/d. TECHNIQUE: Axial computed tomography images of the abdomen and pelvis with intravenous contrast. CTDI is 29 mGy and DLP is 1529.86 mGy-cm. Automated exposure control was utilized for the study. A dose lowering technique was utilized adhering to the principles of ALARA. CONTRAST: Patient received 95 ML OPTIRAY 320 of IV contrast COMPARISON: 06/20/2018 FINDINGS: Lung bases: Lung bases demonstrate bilateral dependent atelectasis. ABDOMEN: Liver: Unremarkable. No mass. Gallbladder and bile ducts: Gallbladder has been removed. No ductal dilation. Pancreas: Unremarkable. No mass. No ductal dilation. Spleen: Unremarkable. No splenomegaly. Adrenals: Unremarkable. No mass. Kidneys and ureters: Unremarkable. No solid mass. No hydronephrosis. Stomach and bowel: Unremarkable. No obstruction. No mucosal thickening. PELVIS: Appendix: No findings to suggest acute appendicitis. Bladder: Unremarkable. No mass. Reproductive: Unremarkable as visualized. ABDOMEN and PELVIS: Intraperitoneal space: Unremarkable. No free air. No significant fluid collection. Bones/joints: No acute fracture. No dislocation. Soft tissues: Unremarkable. Vasculature: Unremarkable. No abdominal aortic aneurysm. Lymph nodes: Unremarkable. No enlarged lymph nodes. IMPRESSION: No acute findings in the abdomen or pelvis. Electronically signed by: Vishal Gregory M.D. 02/04/23 01:40 AM
[2023-02-04] MEDS ORDERED: CEFEPIME 2,000 MG/20 ML VIAL IV STA (02:05)
--- NOTE | 2023-02-04 03:21 | History & Physical Report ---
Date of Service February 04, 2023 Assessment & Plan (1) Nausea & vomiting: (2) Diarrhea: (3) Hyponatremia: (4) Hypokalemia: (5) LETI (acute kidney injury): Plan: 57-year-old female presented to the ED with nausea vomiting and diarrhea for 5 days Dose of Tirzepatide (Mounjaro), GLP-1 receptor agonist was increased 2 days prior to the onset of symptoms. Leukocytosis present Pro-Jacinto normal CT abdomen pelvis with IV contrast did not show any acute abnormality Hyponatremia with sodium of 132, Hypokalemia with potassium of 2.9 Creatinine elevated to 1.8 Check stool PCR, C. difficile Hold antibiotics for now. Blood culture sent in ED. will start on empiric antibiotic if patient has fever or other infectious foci is suspected Start IV fluids with normal saline at 100 cc/h with potassium Strict input and output monitoring. Obtain bladder scan Hold nephrotoxic agents Obtain serum lithium level given LETI. Patient's last dose was today morning. Plan Other conditions; Type 2 diabetes mellitus; started on Lantus and sliding scale insulin. Hold Jardiance,Hold Tirzepatide. Obtain A1c Mood disorder; holding lithium dose for now given LETI. Obtain serum lithium level. Resume lithium when appropriate. Continue other medications. Hypertension; continue metoprolol. Hold losartan, spironolactone. COPD: Not in exacerbation. Continue home inhalers. MARY BETH; BiPAP at night HFpEF; hold Lasix Tobacco use disorder; continue Chantix DVT prophylaxis heparin Full code Time spent evaluating patient, direct bedside care, chart review, placing orders, interpretation of diagnostic studies, discussion with consultants, patient, and family members, as well as other required patient management activities is 90 minutes. Please note the above document was generated using voice recognition software. It may contain grammatical, syntax or spelling errors. Any formal questions or concerns about the content, text or information contained within the body of this dictation should be directly addressed to the provider for clarification History of Present Illness Chief Complaint: Nausea vomiting and diarrhea for 5 days Primary Care Provider: Enzo Michael MD History obtained from interview with the patient and chart review. Past medical history of type 2 diabetes mellitus, chronic hypoxic respiratory failure with 2 L of oxygen as needed during daytime and 2 L at night, COPD, MARY BETH on BiPAP, chronic diastolic heart failure, GERD, restless leg syndrome, myoclonic jerking, osteoporosis, major depressive disorder tobacco use disorder Patient presented to the ED with 5-day history of nausea vomiting diarrhea. Patient reports diarrhea episodes are 5-6 times a day, watery with no blood or mucus seen. Vomitus contained food particles; no blood was seen. Patient reports vomiting episodes up to 6 times a day. Patient also reports generalized weakness. She reports that she has started to use walker since last 2 to 3 days due to weakness. She denies fever, chills, chest pain, shortness of breath, dizziness or urinary symptoms. She denies any sick contacts. Patient's Mounjaro dose was recently increased from 13.5 mg to 15 mg 2 days prior to symptoms onset. Patient reportss he has been taking the medication for several months without any other issues. On presentation to the ED, patient was normotensive, afebrile and was saturating at 2 L of oxygen. CBC was remarkable for leukocytosis. Patient was found to have hyponatremia, hypokalemia and elevated creatinine level of 1.83. Abdominal CT and pelvis was done which did not show any significant findings. Patient was given empiric cefepime and IV fluids. Patient was admitted for further management. Past medical history; as above Past surgical history; cholecystectomy, ankle surgery, cataract surgery Family history; father with heart disease, hypertension. Mother with rheumatoid arthritis, melanoma Social history; used to smoke 1.5 packs/day for 43 years. Quit in 2020 Allergies Allergy/AdvReac Type Severity Reaction Status Date / Time Sulfa (Sulfonamide Allergy Severe ANAPHYLAXIS Verified 10/02/20 08:05 Antibiotics) sumatriptan Allergy Severe ANAPHYLAXIS Verified 10/02/20 08:05 adhesive Allergy Intermediate Blister Verified 10/02/20 08:05 morphine Allergy Intermediate EXTREME Verified 10/02/20 08:05 ITCHING amoxicillin AdvReac Intermediate GI SYMPTOMS Verified 10/02/20 08:05 clavulanic acid AdvReac Intermediate GI SYMPTOMS Verified 10/02/20 08:05 venlafaxine AdvReac Intermediate Nightmare Verified 10/02/20 08:05 Home Medications Medication Instructions Recorded Confirmed Type pantoprazole 40 mg tablet,delayed 40 mg PO BID 10/06/18 02/04/23 History release (Protonix) alendronate 70 mg tablet (Fosamax) 70 mg PO WK 01/17/19 02/04/23 History furosemide 80 mg tablet (Lasix) 80 mg PO Q OTHER DAY 01/17/19 02/04/23 History aspirin 81 mg tablet,delayed 81 mg PO QAM 04/19/19 02/04/23 History release (Rhys Low Dose Aspirin) spironolactone 25 mg tablet 25 mg PO QAM 04/19/19 02/04/23 History (Aldactone) empagliflozin 25 mg tablet 25 mg PO QAM 05/13/19 02/04/23 History (Jardiance) nebulizers #1 ea 09/18/19 02/04/23 Rx BiPap Machine #1 ea 10/31/19 02/04/23 Rx dicyclomine 20 mg tablet 20 mg PO Q8 PRN Abdominal Pain 01/18/20 02/04/23 History budesonide-formoterol HFA 160 2 puff inhalation BID #10.2 grams 03/12/20 02/04/23 Rx mcg-4.5 mcg/actuation aerosol inhaler (Symbicort) metoprolol succinate 25 mg capsule 25 mg PO QAM 03/12/20 02/04/23 History sprinkle, ext. release 24 hr ziprasidone HCl 60 mg capsule 60 mg PO BID 03/12/20 02/04/23 History (Geodon) CPAP Supplies #1 ea 03/15/20 02/04/23 Rx montelukast 10 mg tablet 10 mg PO DAILY #90 tabs 03/20/20 02/04/23 Rx tiotropium bromide 18 mcg capsule 1 cap inhalation DAILY #30 09/03/20 02/04/23 Rx with inhalation device (Spiriva inhalations with HandiHaler) ascorbic acid (vitamin C) 1,000 mg 1 g PO QAM 09/27/20 02/04/23 History tablet (Vitamin C) cholecalciferol (vitamin D3) 25 25 mcg PO QAM 09/27/20 02/04/23 History mcg (1,000 unit) capsule (Vitamin D3) furosemide 40 mg tablet (Lasix) 60 mg PO Q2D 09/27/20 02/04/23 History lithium carbonate 450 mg 450 mg PO AMHS 09/27/20 02/04/23 History tablet,extended release lorazepam 1 mg tablet 1 mg PO DAILY PRN Panic Attack(S) 09/27/20 02/04/23 History losartan 50 mg tablet 50 mg PO QAM 09/27/20 02/04/23 History multivitamin 1 tab PO QAM 09/27/20 02/04/23 History omega-3 acid ethyl esters 1 gram 2 cap PO BID 09/27/20 02/04/23 History capsule (Lovaza) rosuvastatin 10 mg tablet (Crestor) 10 mg PO QAM 09/27/20 02/04/23 History albuterol sulfate 0.63 mg/3 mL 0.63 mg continuous nebulization Q6 02/04/23 02/04/23 History solution for nebulization PRN Shortness Of Breath Or Wheezing baclofen 5 mg tablet 2.5 mg PO TID PRN Muscle Spasm 02/04/23 02/04/23 History diclofenac sodium 1 % topical gel 4 g topical QID 02/04/23 02/04/23 History duloxetine 30 mg capsule,delayed 30 mg PO QAM 02/04/23 02/04/23 History release duloxetine 60 mg capsule,delayed 60 mg PO QAM 02/04/23 02/04/23 History release hydroxyzine HCl 10 mg tablet 10 mg PO QAM 02/04/23 02/04/23 History hydroxyzine HCl 25 mg tablet 25 mg PO HS 02/04/23 02/04/23 History hydroxyzine HCl 50 mg tablet 50 mg PO HS 02/04/23 02/04/23 History insulin glargine 100 unit/mL (3 20 unit subcut QAM 02/04/23 02/04/23 History mL) subcutaneous pen (Lantus Solostar U-100 Insulin) ketoconazole 2 % shampoo 1 applic topical .2-3 TIMES PER 02/04/23 02/04/23 History WEEK lithium carbonate 150 mg capsule 150 mg PO HS 02/04/23 02/04/23 History memantine 14 mg capsule 14 mg PO QAM 02/04/23 02/04/23 History sprinkle,extended release 24hr ondansetron 4 mg disintegrating 4 mg translingual Q8 nausea 02/04/23 02/04/23 History tablet oxybutynin chloride 10 mg 10 mg PO QAM 02/04/23 02/04/23 History tablet,extended release 24 hr tirzepatide 15 mg/0.5 mL 15 mg subcut WK 02/04/23 02/04/23 History subcutaneous pen injector (Belem) varenicline 1 mg tablet 1 mg PO AMHS 02/04/23 02/04/23 History Past Med/Surg History Medical History ADD (attention deficit disorder) Anxiety and depression Asthma exacerbation with COPD (chronic obstructive pulmonary disease) 2L continuous (increases to 3L with strenuous activity) Bipolar I disorder (05/13/13) Chronic obstructive pulmonary disease Diabetes mellitus, type 2 NIDDM GERD (gastroesophageal reflux disease) History of Madden's esophagus History of skin cancer melanoma (abdomen) Hx of suicide attempt 1995 Hyperlipidemia Hypertension Insomnia Left-sided heart failure Leg swelling BLE "REASON FOR LASIX" Migraine Morbid obesity MARY BETH (obstructive sleep apnea) USES BIPAP Osteoarthritis Peripheral neuropathy Restless leg syndrome Surgical History History of ankle surgery LEFT History of bronchoscopy 12/13/2018 History of cardiac cath 8 MONTHS AGO? NO STENTS ([facility]) History of cataract surgery BILATERAL History of cholecystectomy History of colonoscopy History of dilatation and curettage History of esophagogastroduodenoscopy (EGD) 01/25/19: MAC sedation at [facility] History of surgical removal of lesion MELANOMA REMOVED FROM ABDOMEN History of tooth extraction History of total left hip replacement Hx of section X1 Family History Father Colon cancer Diabetes Heart failure Family history of diabetes mellitus Family hx of colon cancer Mother Melanoma Grandfather (Paternal) Family history of diabetes mellitus Family hx of colon cancer Grandmother (Paternal) Family history of diabetes mellitus Sister Family history of diabetes mellitus Brother Family history of diabetes mellitus Other No family history of adverse response to anesthesia Social History Smoking Status: Unknown if ever smoked Tobacco Type: Cigarettes Cigarettes Per Day: OCCAS. "TRYING TO QUIT"; Second Hand Exposure: No; Do You Dip or Chew Tobacco: No; Hx Alcohol Use: No Hx Substance Use: No Preferred Language: Samoan Communication Ability: Effective Visual Impairment: No Limitations Pump Tester Required: No Beliefs That Will Affect Care: None Current Living Situation: Family Feels Safe at Home: Yes Assistive Devices: BiPap, Cane, Glasses and Oxygen - Continuous Physical Exam Physical Exam: Constitutional: WD/WN, vitals as above, NAD, sitting up in bed, pleasant, conversing easily Respiratory: normal respiratory effort, lungs clear to auscultation, no wheeze, rales, rhonchi. Normal insp/exp effort, no accessory muscle use Cardiovascular: RRR, no murmur, no edema Vessels: no JVD or carotid bruit Chest: normal inspection of chest Abdomen: normal bowel sounds, soft, nontender, no hepatosplenomegaly Musculoskeletal: no cyanosis or clubbing, extremities motor strength 5/5 Skin: no rashes, warm and dry normal turgor Neurologic: PERRL, EOMI, accommodation nl, no face palsy, no dysarthria CN's II- XI intact bilaterally and moves all extremities Psychiatric: A+Ox3, euthymic affect Results & Data Results & Data Vital Signs (Past 12 Hours) Vital Signs Temp Pulse Resp BP Pulse Ox O2 Del Method O2 Flow Rate 02/03/23 23:12 78 02/03/23 23:02 36.3 C L 79 22 115/70 94 Nasal Cannula 2 Laboratory Results Laboratory Results WBC 21.08 K/ul (4.8-10.8) H 02/03/23 23:10 RBC 5.09 M/uL (4.20-5.40) 02/03/23 23:10 Hgb 15.7 g/dl (12.0-16.0) 02/03/23 23:10 Hct 44.1 % (37.0-47.0) 02/03/23 23:10 MCV 86.6 fL (80.0-100.0) 02/03/23 23:10 MCH 30.8 pg (25.0-34.0) 02/03/23 23:10 MCHC 35.6 g/dL (32.0-36.0) 02/03/23 23:10 RDW Std Deviation 40.0 fL (36.4-46.3) 02/03/23 23:10 RDW Coeff of Vickie 12.7 % (11.5-14.5) 02/03/23 23:10 Plt Count 275 K/uL (130-400) 02/03/23 23:10 MPV 11.9 fL (9.4-12.4) 02/03/23 23:10 Immature Gran % (Auto) 0.4 % 02/03/23 23:10 Neut % (Auto) 80.9 % 02/03/23 23:10 Lymph % (Auto) 10.9 % 02/03/23 23:10 [place] % (Auto) 6.1 % 02/03/23 23:10 Eos % (Auto) 1.4 % 02/03/23 23:10 Baso % (Auto) 0.3 % 02/03/23 23:10 Neut # (Auto) 17.06 K/uL (1.40-6.50) H 02/03/23 23:10 Lymph # (Auto) 2.30 K/uL (1.2-3.4) 02/03/23 23:10 [place] # (Auto) 1.28 K/uL (0.11-0.59) H 02/03/23 23:10 Eos # (Auto) 0.29 K/uL (0-0.50) 02/03/23 23:10 Baso # (Auto) 0.06 K/uL (0-0.2) 02/03/23 23:10 Immature Gran # (Auto) 0.09 K/uL (0.01-0.20) 02/03/23 23:10 Sodium 132 mmol/L (136-145) L 02/03/23 23:10 Potassium 2.9 mmol/L (3.5-5.1) L 02/03/23 23:10 Chloride 99 mmol/L (98-107) 02/03/23 23:10 Carbon Dioxide 19 mmol/L (21-32) L 02/03/23 23:10 Anion Gap 14 (3-11) H 02/03/23 23:10 BUN 21 mg/dl (6-23) 02/03/23 23:10 Creatinine 1.83 mg/dl (0.6-1.2) H 02/03/23 23:10 Est Cr Clr Drug Dosing 35.7 ml/min 02/03/23 23:10 Est GFR ( Amer) 35.1 ml/min 02/03/23 23:10 Est GFR (Non-Af Amer) 30.3 ml/min 02/03/23 23:10 BUN/Creatinine Ratio 11.5 (10-20) 02/03/23 23:10 Glucose 137 mg/dl (70-99(Fasting)) H 02/03/23 23:10 Lactate 0.9 mmol/L (0.4-2.0) 02/04/23 02:36 Calcium 8.7 mg/dl (8.6-10.3) 02/03/23 23:10 Magnesium 1.9 mg/dl (1.7-2.4) 02/03/23 23:10 Total Bilirubin 0.7 mg/dl (0.2-1.0) 02/03/23 23:10 AST 17 U/L (13-39) 02/03/23 23:10 ALT 31 U/L (7-52) 02/03/23 23:10 Alkaline Phosphatase 126 U/L (34-104) H 02/03/23 23:10 Total Protein 6.8 gm/dl (6.0-8.3) 02/03/23 23:10 Albumin 3.9 gm/dl (3.4-5.0) 02/03/23 23:10 Globulin 2.9 gm/dl (2.5-4.0) 02/03/23 23:10 Albumin/Globulin Ratio 1.3 (0.9-2) 02/03/23 23:10 Lipase 18 U/L (11-82) 02/03/23 23:10 Procalcitonin 0.11 ng/ml (0-0.5) 02/04/23 00:00 SARS-CoV-2, RNA, NAAT NEGATIVE (NEGATIVE) 02/04/23 02:02 Impressions Abdomen/Pelvis CT 02/04/23 00:14 Exam(s): CT ABDOMEN + PELVIS With Contrast IV Amt: 95 ML OPTIRAY 320 EXAM: CT Abdomen and Pelvis With Intravenous Contrast CLINICAL HISTORY: Reason for exam: LLQ pain, n/v/d. TECHNIQUE: Axial computed tomography images of the abdomen and pelvis with intravenous contrast. CTDI is 29 mGy and DLP is 1529.86 mGy-cm. Automated exposure control was utilized for the study. A dose lowering technique was utilized adhering to the principles of ALARA. CONTRAST: Patient received 95 ML OPTIRAY 320 of IV contrast COMPARISON: 06/20/2018 FINDINGS: Lung bases: Lung bases demonstrate bilateral dependent atelectasis. ABDOMEN: Liver: Unremarkable. No mass. Gallbladder and bile ducts: Gallbladder has been removed. No ductal dilation. Pancreas: Unremarkable. No mass. No ductal dilation. Spleen: Unremarkable. No splenomegaly. Adrenals: Unremarkable. No mass. Kidneys and ureters: Unremarkable. No solid mass. No hydronephrosis. Stomach and bowel: Unremarkable. No obstruction. No mucosal thickening. PELVIS: Appendix: No findings to suggest acute appendicitis. Bladder: Unremarkable. No mass. Reproductive: Unremarkable as visualized. ABDOMEN and PELVIS: Intraperitoneal space: Unremarkable. No free air. No significant fluid collection. Bones/joints: No acute fracture. No dislocation. Soft tissues: Unremarkable. Vasculature: Unremarkable. No abdominal aortic aneurysm. Lymph nodes: Unremarkable. No enlarged lymph nodes. IMPRESSION: No acute findings in the abdomen or pelvis. Electronically signed by: Vishal Gregory M.D. 02/04/23 01:40 AM Code Status & VTE Plan VTE Prophylaxis Plan VTE Prophylaxis will be ordered: Yes
[2023-02-04] MEDS ORDERED: ALUMINUM/MAGNESIUM SUSP 30 ML UDC PO PRN (04:41)
[2023-02-04] MEDS ORDERED: DICYCLOMINE HCL 20 MG TAB PO PRN (04:41)
[2023-02-04] MEDS ORDERED: ACETAMINOPHEN 325 MG TAB PO PRN (04:41)
[2023-02-04] MEDS ORDERED: GLUCOSE 10 TAB/TUBE PO PRN (04:41)
[2023-02-04] MEDS ORDERED: BACLOFEN 10 MG TAB PO PRN (04:41)
[2023-02-04] MEDS ORDERED: CARBOHYDRATES FOR HYPOGLYCEMIA PO PRN (04:41)
[2023-02-04] MEDS ORDERED: DEXTROSE 50% 50 ML SYRINGE IV PRN (04:41)
[2023-02-04] MEDS ORDERED: GLUCAGON FOR INJ 1 MG VIAL SQ PRN (04:41)
[2023-02-04] MEDS ORDERED: ONDANSETRON INJ 2 MG/ML 2 ML VIAL IV PRN (04:41)
[2023-02-04] MEDS ORDERED: PHARMACY GLYCEMIC MGMT CONSULT PRN (04:41)
[2023-02-04] MEDS ORDERED: GLUCOSE 40% GEL 15 GM TUBE PO PRN (04:41)
[2023-02-04] MEDS ORDERED: NSS + 20MEQ KCL 20 MEQ/1,000 ML BAG IV SCH (05:00)
[2023-02-04] MEDS: SODIUM CHLORIDE 0.9% 1000ML 1,000 ML IV SCH ×3 (05:13→20:44)
[2023-02-04] MEDS ORDERED: ALBUTEROL 0.083% NEBU SOLN 3 ML VIAL INH PRN (06:23)
[2023-02-04] MEDS: POTASSIUM CHLORIDE / WTR 10 MEQ/100 ML PLCT IV SCH ×4 (06:38→10:58)
[2023-02-04] MEDS: HEPARIN SOD 5,000 UNIT/0.5 ML VIAL SQ SCH ×3 (06:38→20:43)
[2023-02-04 06:39] LABS: Appearance Urine Clear (Clear); Bilirubin Urine Negative (Negative); Blood Urine Negative (Negative); Color Urine Yellow; Glucose Urine UA 2+ (Negative); Ketones Urine 1+ (Negative); Leukocyte Esterase Urine Negative (Negative); Nitrite Urine Negative (Negative); Protein Urine Negative (Negative); Specific Gravity Urine 1.041 (1.000-1.030); Urobilinogen Urine Negative (Negative); pH Urine 6.5 (4.5-7.5)
[2023-02-04 06:52] LABS: Urine Chloride < 15 mmol/L; Urine Potassium 10.9 mmol/L; Urine Sodium 16 mmol/L
[2023-02-04 07:00] LABS: Creatinine Urine Random 80.1 mg/dl
[2023-02-04] MEDS ORDERED: SODIUM CHLORIDE 0.9% 1000ML 1,000 ML IV SCH (07:00)
[2023-02-04 07:44] LABS: Basophils # (auto) 0.04 K/uL (0-0.2); Basophils % (auto) 0.2 %; Eosinophils % (auto) 0.6 %; Hematocrit (blood only) 41.6 % (37.0-47.0); Hemoglobin 14.4 g/dl (12.0-16.0); Immature Granulocytes # (auto) 0.06 K/uL (0.01-0.20); Immature Granulocytes % (auto) 0.4 %; Lymphocytes # (auto) 2.07 K/uL (1.2-3.4); Lymphocytes % (auto) 12.8 %; Mean Corpuscular Hemoglobin 30.3 pg (25.0-34.0); Mean Corpuscular Hgb Conc 34.6 g/dL (32.0-36.0); Mean Corpuscular Volume 87.4 fL (80.0-100.0); Monocytes # (auto) 1.15 K/uL (0.11-0.59); Monocytes % (auto) 7.1 %; Neutrophils # (auto) 12.79 K/uL (1.40-6.50); Neutrophils % (auto) 78.9 %; Platelet Count 262 K/uL (130-400); RDW Coefficient of Variation 12.9 % (11.5-14.5); RDW Standard Deviation 41.1 fL (36.4-46.3); Red Blood Count 4.76 M/uL (4.20-5.40); White Blood Count 16.21 K/ul (4.8-10.8)
[2023-02-04 08:03] LABS: BUN Creatinine Ratio 10.3 (10-20); Calcium 8.7 mg/dl (8.6-10.3); Creatinine Clr Calc Pharmacy 38.2 ml/min; Est GFR (African American) 37.1 ml/min; Potassium 3.6 mmol/L (3.5-5.1)
[2023-02-04 08:10] LABS: Estimated Average Glucose 120 mg/dl; Hemoglobin A1C 5.8 % (4.5-5.6)
[2023-02-04] MEDS ORDERED: LANTUS PER UNIT CHARGE SQ SCH (09:00)
[2023-02-04] MEDS: INSULIN ASPART PER UNIT CHARGE SC SCH ×4 (09:10→20:42)
[2023-02-04] MEDS: FLUTICASONE/VILANTEROL 200/25MCG 14 PUFFS/INHALER INH SCH (09:13)
[2023-02-04] MEDS: DULoxetine HCL 60 MG CAP PO SCH (09:13)
[2023-02-04] MEDS: ASPIRIN 81 MG ECTAB PO SCH (09:14)
[2023-02-04] MEDS: CHOLECALCIFEROL 1,000 UNITS 25 MCG TAB PO SCH (09:14)
[2023-02-04] MEDS: ROSUVASTATIN CALCIUM 10 MG TAB PO SCH (09:14)
[2023-02-04] MEDS: METOPROLOL SUCC 25MG EXT REL TAB PO SCH (09:15)
[2023-02-04] MEDS: DULoxetine HCL 30 MG CAP PO SCH (09:15)
[2023-02-04] MEDS: OXYBUTYNIN CHLORIDE XL 5 MG TABCR PO SCH (09:15)
[2023-02-04] MEDS: MEMANTINE HCL 5 MG TAB PO SCH ×2 (09:15→20:41)
[2023-02-04] MEDS: PANTOprazole 40 MG TAB PO SCH ×2 (09:15→20:41)
[2023-02-04] MEDS: UMECLIDINIUM BROMIDE 62.5MCG/BLISTER 7 PUFFS/INHALER INH SCH (09:16)
--- NOTE | 2023-02-04 12:38 | Pharmacy Report ---
Pharmacy Glycemic Short Note 2 - Date of Service February 04, 2023 - Glycemic Short BSG Results (Last 24 hours): 02/03/23 02/04/23 02/04/23 23:10 07:09 07:29 Glucose 137 H 93 POC Glucose 99 02/04/23 11:38 Glucose POC Glucose 91 OUTPATIENT ANTIDIABETIC REGIMEN: * Jardiance 25 mg PO daily * Lantus 18 units daily (last dose MANAGER TRANSFER was 02/02) * Mounjaro 15 mg SQ weekly on Fridays * HbA1C = 5.8% (02/04/23) ASSESSMENT: * Ms Sinclair is a 57 y/o F with a PMH of T2DM who presents with a week long history of N/V/D. Patient has not really eaten since Wednesday or Wednesday (Today is ). * BSGs today are 99-91 mg/dL. * This pharmacist spoke with the patient. Patient reports she is struggling with lows at home and is planning to stop Lantus. * Hold Lantus today (especially since BSG this AM was 99 mg/dL and patient > 24 hours without Lantus). Re-assess tomorrow. * Novolog weight-based stress of 2. PLAN FOR INPATIENT GLYCEMIC CONTROL: * Hold outpatient oral diabetes medications * Basal insulin * Hold today. * Bolus insulin * NovoLog per scale ACHS or Q6hrs while NPO * Goal Range: Low 110 mg/dL - High 140 mg/dL * Correction Factor: 25 mg/dL/unit * Nutritional / Prandial insulin per carb ratio of 1 unit per 8 grams CHO consumed
--- NOTE | 2023-02-04 13:48 | Electrocardiogram Report ---
Test Reason : Blood Pressure : / mmHG Vent. Rate : 077 BPM Atrial Rate : 077 BPM P-R Int : 190 ms QRS Dur : 084 ms QT Int : 526 ms P-R-T Axes : 030 001 039 degrees QTc Int : 595 ms Normal sinus rhythm Possible Left atrial enlargement Low voltage QRS Prolonged QT Abnormal ECG When compared with ECG of 22-JUL-2022 19:34, Minimal criteria for Anterior infarct are no longer Present QT has lengthened Confirmed by Kvng Jeff ([id number]) on 02/04/2023 1:47:26 PM Referred By: REFERRED SELF Confirmed By:Kvng Jeff
--- NOTE | 2023-02-04 15:32 | Hospitalist Progress Note ---
Date of Service February 04, 2023 Assessment & Plan (1) Nausea & vomiting: Plan: Likely viral gastroenteritis vs medication side effect zofran PRN (2) Diarrhea: Plan: stool studies ordered but no further diarrhea here likely viral gastroenteritis (3) Hyponatremia: Plan: Monitor with IVF (4) Hypokalemia: Plan: repleted (5) LETI (acute kidney injury): Plan: Monitor with IVF Plan Chronic conditions Type 2 diabetes mellitus; started on Lantus and sliding scale insulin. Hold Jardiance,Hold Tirzepatide. Obtain A1c Mood disorder; holding lithium dose for now given LETI. Lillie level elevated. Continue other medications. Hypertension; continue metoprolol. Hold losartan, spironolactone. COPD: Not in exacerbation. Continue home inhalers. MARY BETH; BiPAP at night HFpEF; hold Lasix Tobacco use disorder; continue Chantix DVT prophylaxis heparin Full code Admission and Anticipated Discharge Date Admission Date: February 04, 2023 Subjective still with nausea, no further diarrhea Feels weak and unsteady on her feet Review of Systems Review of Systems: as above Physical Exam Physical Exam: Appears weak, non toxic, pleasant Respiratory: breathing comfortably on room air, no wheezing/rhonchi/rales Cardiovascular: regular rate and rhythm, no murmurs/rubs/gallops Gastrointestinal (Abdomen): soft, non tender Musculoskeletal: no edema Neurologic: awake, alert, spontaneously moving extremities Results & Data Results & Data Vital Signs (Past 12 Hours) Vital Signs Temp Pulse Pulse Pulse Resp BP Pulse Ox 02/04/23 12:04 36.9 C 85 20 103/65 95 02/04/23 08:00 02/04/23 07:00 81 02/04/23 08:15 36.8 C 85 18 109/64 97 02/04/23 04:41 02/04/23 04:45 36.3 C L 87 16 132/80 99 02/04/23 03:30 79 21 97 O2 Del Method 02/04/23 12:04 Room Air 02/04/23 08:00 Room Air 02/04/23 07:00 02/04/23 08:15 Room Air 02/04/23 04:41 Room Air 02/04/23 04:45 Nasal Cannula 02/04/23 03:30
[2023-02-04] MEDS ORDERED: LORazepam 1 MG TAB PO PRN (20:31)
[2023-02-04] MEDS ORDERED: BENZONATATE 100 MG CAPSULE PO ONE (20:32)
[2023-02-04] MEDS ORDERED: MONTELUKAST SODIUM 10 MG TABLET PO SCH (21:00)
[2023-02-05] MEDS: HEPARIN SOD 5,000 UNIT/0.5 ML VIAL SQ SCH (06:01)
[2023-02-05] MEDS: SODIUM CHLORIDE 0.9% 1000ML 1,000 ML IV SCH (06:05)
[2023-02-05 07:34] LABS: BUN Creatinine Ratio 7.4 (10-20); Calcium 8.8 mg/dl (8.6-10.3); Creatinine Clr Calc Pharmacy 71.2 ml/min; Est GFR (African American) 78.6 ml/min; Est GFR (Non-African American) 67.8 ml/min; Potassium 3.7 mmol/L (3.5-5.1)
[2023-02-05 07:35] LABS: Basophils # (auto) 0.05 K/uL (0-0.2); Basophils % (auto) 0.5 %; Eosinophils # (auto) 0.26 K/uL (0-0.50); Eosinophils % (auto) 2.6 %; Hemoglobin 13.6 g/dl (12.0-16.0); Immature Granulocytes # (auto) 0.03 K/uL (0.01-0.20); Immature Granulocytes % (auto) 0.3 %; Lymphocytes # (auto) 2.02 K/uL (1.2-3.4); Lymphocytes % (auto) 20.2 %; Mean Corpuscular Hemoglobin 29.8 pg (25.0-34.0); Mean Corpuscular Volume 87.7 fL (80.0-100.0); Mean Platelet Volume 11.7 fL (9.4-12.4); Monocytes # (auto) 0.83 K/uL (0.11-0.59); Monocytes % (auto) 8.3 %; Neutrophils % (auto) 68.1 %; Platelet Count 232 K/uL (130-400); RDW Coefficient of Variation 12.7 % (11.5-14.5); RDW Standard Deviation 40.9 fL (36.4-46.3); Red Blood Count 4.56 M/uL (4.20-5.40); White Blood Count 9.99 K/ul (4.8-10.8)
[2023-02-05] MEDS: INSULIN ASPART PER UNIT CHARGE SC SCH (08:43)
[2023-02-05] MEDS: DULoxetine HCL 30 MG CAP PO SCH (08:46)
[2023-02-05] MEDS: CHOLECALCIFEROL 1,000 UNITS 25 MCG TAB PO SCH (08:46)
[2023-02-05] MEDS: METOPROLOL SUCC 25MG EXT REL TAB PO SCH (08:46)
[2023-02-05] MEDS: ROSUVASTATIN CALCIUM 10 MG TAB PO SCH (08:46)
[2023-02-05] MEDS: ASPIRIN 81 MG ECTAB PO SCH (08:46)
[2023-02-05] MEDS: DULoxetine HCL 60 MG CAP PO SCH (08:46)
[2023-02-05] MEDS: MEMANTINE HCL 5 MG TAB PO SCH (08:46)
[2023-02-05] MEDS: PANTOprazole 40 MG TAB PO SCH (08:47)
[2023-02-05] MEDS: FLUTICASONE/VILANTEROL 200/25MCG 14 PUFFS/INHALER INH SCH (08:47)
[2023-02-05] MEDS: UMECLIDINIUM BROMIDE 62.5MCG/BLISTER 7 PUFFS/INHALER INH SCH (08:47)
[2023-02-05] MEDS: OXYBUTYNIN CHLORIDE XL 5 MG TABCR PO SCH (08:47)
--- NOTE | 2023-02-05 12:49 | Discharge Summary ---
Date of Service February 05, 2023 Admission HPI Per Admitting Provider History obtained from interview with the patient and chart review. Past medical history of type 2 diabetes mellitus, chronic hypoxic respiratory failure with 2 L of oxygen as needed during daytime and 2 L at night, COPD, MARY BETH on BiPAP, chronic diastolic heart failure, GERD, restless leg syndrome, myoclonic jerking, osteoporosis, major depressive disorder tobacco use disorder Patient presented to the ED with 5-day history of nausea vomiting diarrhea. Patient reports diarrhea episodes are 5-6 times a day, watery with no blood or mucus seen. Vomitus contained food particles; no blood was seen. Patient reports vomiting episodes up to 6 times a day. Patient also reports generalized weakness. She reports that she has started to use walker since last 2 to 3 days due to weakness. She denies fever, chills, chest pain, shortness of breath, dizziness or urinary symptoms. She denies any sick contacts. Patient's Mounjaro dose was recently increased from 13.5 mg to 15 mg 2 days prior to symptoms onset. Patient reportss he has been taking the medication for several months without any other issues. On presentation to the ED, patient was normotensive, afebrile and was saturating at 2 L of oxygen. CBC was remarkable for leukocytosis. Patient was found to have hyponatremia, hypokalemia and elevated creatinine level of 1.83. Abdominal CT and pelvis was done which did not show any significant findings. Patient was given empiric cefepime and IV fluids. Patient was admitted for further management. Past medical history; as above Past surgical history; cholecystectomy, ankle surgery, cataract surgery Family history; father with heart disease, hypertension. Mother with rheumatoid arthritis, melanoma Social history; used to smoke 1.5 packs/day for 43 years. Quit in 2020 Principal Diagnosis Viral gastroenteritis Sepsis LETI Hyponatremia Discharge Exam Patient feels well, feels ready to return home. Appears pleasant and comfortable. Ambulating to rest room without difficulty Breathing comfortably on room air Heart sounds are regular rate and rhythm No lower extremity swelling Discharge Data Allergies Allergy/AdvReac Type Severity Reaction Status Date / Time Sulfa (Sulfonamide Allergy Severe ANAPHYLAXIS Verified 10/02/20 08:05 Antibiotics) sumatriptan Allergy Severe ANAPHYLAXIS Verified 10/02/20 08:05 adhesive Allergy Intermediate Blister Verified 10/02/20 08:05 morphine Allergy Intermediate EXTREME Verified 10/02/20 08:05 ITCHING amoxicillin AdvReac Intermediate GI SYMPTOMS Verified 10/02/20 08:05 clavulanic acid AdvReac Intermediate GI SYMPTOMS Verified 10/02/20 08:05 lactose AdvReac Intermediate Diarrhea Verified 02/04/23 15:19 venlafaxine AdvReac Intermediate Nightmare Verified 10/02/20 08:05 Consultations 02/04/23 02:21 ED Decision to Admit Stat Ordered Studies 02/04/23 00:14 CT abd pelvis IV con only Stat Hospital Course (1) Nausea & vomiting: (2) Diarrhea: (3) Hyponatremia: (4) Hypokalemia: (5) LETI (acute kidney injury): Plan Ms Karina Sinclair is a 57 year old female with history of type 2 IDDM, MARY BETH, Asthma, Bipolar disorder, chronic diastolic CHF presents to ER 02/03 with nausea, vomiting and diarrhea was found to have acute kidney injury due to dehydration and sepsis. She had a CT A/P which was unremarkable. With IV fluids and nausea medication, her symptoms resolved and she was able to tolerate a carb controlled diet prior to discharge. She did not have any diarrhea while here so stool studies were ordered but were not sent. Her renal function, leukocytosis and electrolyte derangements were normalized prior to discharge Due to her recent LETI, her lasix, spironolactone and losartan were held at discharge. She was given instructions to monitor her blood pressure and can resume these medications in a day or two once her oral intake is back to normal. Her lithium was also held at discharge due to elevated lithium level and she was instructed to follow up with her psychiatrist for repeat a lithium level prior to restarting. Total Time Total Time Spent Total Time Spent (In Minutes): 35 Discharge Plan Discharge Items Patient Disposition: Home - Self-Care Reason For Visit: GASTROENTERITIS, LETI Discharge Diagnosis: gastroenteritis, likely viral LETI sepsis, resolved Condition on Discharge: Good Activity: Resume your previous activity Non-emergency contact: Primary Care Provider Call non-emergency contact if: you have any medication questions and your symptoms worsen Follow-up/Referrals: Enzo Michael MD [Primary Care Provider] - (Date & Time 02/10/2023 10:00 AM Provider Orion Fong MD [facility] ) Diet: Carb Consistent or DM2 and Heart Healthy Addtl Attending Provider Instructions: You were admitted for nausea, vomiting and diarrhea You were also found to have dehydration and kidney injury with sepsis You had a CT of your abdomen and pelvis which was normal You received IV fluids and medicine to help your nausea Your symptoms have resolved and your labwork has normalized The following medicines were held at time of discharge: 1) [place]. Because of dehydration, your lithium level was elevated. Continue to hold your lithium until you follow up with your psychiatrist for repeat testing 2) Lasix/Furosemide, Spironolactone. You can resume these medicines in the next 1-2 days if your diet and appetite is back to normal 3) Losartan. You can resume this medicine once your blood pressure is above 140/80. Please follow up with your primary care doctor within 2 weeks for after discharge care. Pending Studies at Discharge: No Stand-Alone Forms: My [facility] [employer], Smoking Cessation Medications and DC Order Prescriptions: Continued (DME[place] [facility] [place] Rx Instructions .ROUTE .MEDSUPPLY Qty: 1 0RF Rx Instructions: Use as directed (DME) CPAP Supplies Mis See Rx Instructions .ROUTE .MEDSUPPLY Qty: 1 0RF Rx Instructions: PT. REQUESTS NASAL PILLOWS AND CHIN STRAP. GUCCI'S montelukast 10 mg tablet 10 mg PO DAILY Qty: 90 3RF Patient Comments: TAKES HS Spiriva with HandiHaler 18 mcg capsule, w/inhalation device 1 cap inhalation DAILY Qty: 30 5RF Rx Instructions: puncture 1 cap using device; one dose = 2 inhalations (DME) BiPap Machine Mis See Rx Instructions .ROUTE .MEDSUPPLY Qty: 1 0RF Rx Instructions: BiPAP i24/e16 cm H20, tubing, supplies, heated humidification. [place] with AHI and compliance. 99-year ziprasidone HCl [Geodon] 60 mg capsule 60 mg PO BID metoprolol succinate 25 mg capsule,sprinkle,ER 24hr 25 mg PO QAM budesonide-formoterol [Symbicort] 160-4.5 mcg/actuation HFA aerosol inhaler 2 puff INHALATION BID Qty: 10.2 5RF pantoprazole [Protonix] 40 mg tablet,delayed release (DR/EC) 40 mg PO BID dicyclomine 20 mg Tablet 20 mg PO Q8 PRN (Reason: Abdominal Pain) alendronate [Fosamax] 70 mg Tablet 70 mg PO WK aspirin [Rhys Low Dose Aspirin] 81 mg Tablet,Delayed Release (Dr/Ec) 81 mg PO QAM Jardiance 25 mg tablet 25 mg PO QAM multivitamin Tablet 1 tab PO QAM ascorbic acid (vitamin C) [Vitamin C] 1,000 mg Tablet 1 g PO QAM lorazepam 1 mg Tablet 1 mg PO DAILY PRN (Reason: Panic Attack(S)) cholecalciferol (vitamin D3) [Vitamin D3] 25 mcg (1,000 unit) Capsule 25 mcg PO QAM rosuvastatin [Crestor] 10 mg Tablet 10 mg PO QAM omega-3 acid ethyl esters [Lovaza] 1 gram Capsule 2 cap PO BID memantine 14 mg capsule,sprinkle,ER 24hr 14 mg PO QAM albuterol sulfate 0.63 mg/3 mL solution for nebulization 0.63 mg continuous nebulization Q6 PRN (Reason: Shortness Of Breath Or Wheezing) insulin glargine [Lantus Solostar U-100 Insulin] 100 unit/mL (3 mL) insulin pen 20 unit SUBCUT QAM baclofen 5 mg tablet 2.5 mg PO TID PRN (Reason: Muscle Spasm) Mounjaro 15 mg/0.5 mL pen injector 15 mg SUBCUT WK hydroxyzine HCl 25 mg tablet 25 mg PO HS hydroxyzine HCl 10 mg tablet 10 mg PO QAM duloxetine 30 mg capsule,delayed release(DR/EC) 30 mg PO QAM duloxetine 60 mg capsule,delayed release(DR/EC) 60 mg PO QAM hydroxyzine HCl 50 mg tablet 50 mg PO HS Rx Instructions: do not take with lorazepam ondansetron 4 mg tablet,disintegrating 4 mg translingual Q8 ketoconazole 2 % shampoo 1 applic TOPICAL .2-3 TIMES PER WEEK varenicline 1 mg tablet 1 mg PO AMHS diclofenac sodium 1 % gel 4 g TOPICAL QID oxybutynin chloride 10 mg tablet extended release 24hr 10 mg PO QAM Held furosemide [Lasix] 80 mg Tablet 80 mg PO Q OTHER DAY Hold Instructions: Resume on 02/06/23. Resume when diet and appetite back to normal spironolactone [Aldactone] 25 mg Tablet 25 mg PO QAM Hold Instructions: Resume on 02/06/23. Resume when diet and appetite is back to normal losartan 50 mg Tablet 50 mg PO QAM Hold Instructions: Resume on 02/06/23. resume when systolic blood pressure above 140 furosemide [Lasix] 40 mg Tablet 60 mg PO Q2D Hold Instructions: Resume on 02/06/23. Resume when diet and appetite back to normal Rx Instructions: ALTERNATES EVERY OTHER DAY WITH 80MG Discontinued lithium carbonate 450 mg Tablet Extended Release 450 mg PO AMHS lithium carbonate 150 mg capsule 150 mg PO HS Discharge Orders: Discharge Order (Routine); Ordered 02/05/23 Ordered By: Marleni Mckeon/Other Patient Handouts: Managing Type 2 Diabetes, Special Foot Care for Diabetes Admission Data Admit Date/Time: 02/04/23 02:35 Attending Provider: Marleni Arenas Admit Provider: Andrade Arenas Primary Care Provider: Enzo Michael Other Providers: Andrade Arenas
== END 2023-02-05 14:15 | disposition home or self-care (01) | DRG 872 ==
LOC: ED 22:50 → INTOOBSV 02-04 02:35 → 2W 02-04 02:35

== ENCOUNTER 2023-02-08 18:32 | Observation (INO) ==
[2023-02-08] MEDS ORDERED: SODIUM CHLORIDE 0.9% 1000ML 1,000 ML IV ONE ×2 (18:48→20:17)
[2023-02-08] MEDS ORDERED: ONDANSETRON INJ 2 MG/ML 2 ML VIAL IV STA (18:48)
--- NOTE | 2023-02-08 18:54 | Emergency Department Note ---
Impression & Plan Hypotension, Hypokalemia, Diarrhea, LETI (acute kidney injury), Leukocytosis, Hypomagnesemia ED Provider Note NAME: XIAO EL AGE: 57 SEX: F : 1965 ARRIVES VIA: Ambulance INFORMANT: [Patient][nursing] ED PROVIDER(S): [Philip Hall MD] CHIEF COMPLAINT: Weakness HISTORY OF PRESENT ILLNESS: The patient is a 57-year-old female who left our hospital about 3 days ago after being admitted for acute kidney injury, gastroenteritis and some dehydration. She felt well at discharge. In the last day or so, she has noticed increasing weakness, dizziness and some shortness of breath. She fell yesterday because of her complaints, no injuries from the fall. No fever. She has had some nausea, no vomiting. She had 3 large diarrheal stools today, no bloody or black stool. The patient felt faint and as per EMS, her blood pressure was low in the 80s. She presents by ambulance for evaluation. Patient denies any current chest pain or abdominal pain. She states that no new medications were added at hospital discharge. PMHx/PSHx: See Below SOCIAL HISTORY: See Below. PHYSICAL EXAM: GENERAL: Patient is in no acute distress. HEENT: No acute trauma, normocephalic atraumatic, mucous membranes slightly dry, no nasal congestion. NECK: No stridor, no adenopathy, no meningismus, trachea is midline. LUNGS: Clear to auscultation bilaterally, no wheeze, no rhonchi, breath sounds equal. HEART: Without murmurs gallops or rubs, regular rate and rhythm. ABDOMEN: Soft, nontender, bowel sounds positive, no peritonitis. EXTREMITIES: No cyanosis or edema, full range of motion of all the joints wi thout pain or difficulty, no signs for acute trauma. NEUROLOGIC: Oriented x 3, no acute motor or sensory deficits, no focal weakness. SKIN: No rash, no jaundice, no diaphoresis. DIFFERENTIAL DIAGNOSIS: Dehydration, acute kidney injury, anemia, electrolyte imbalance, dysrhythmia, MS, UTI, among others. EMERGENCY DEPARTMENT COURSE/PROCEDURES: Prior/Outside records reviewed: Previous discharge summary. ECG per my interpretation: Indication was dizziness and weakness. The ECG shows a normal sinus rhythm with a rate of 82. There is some T wave inversion in the anterior leads and some T wave flattening laterally. There is no ST elevation, no PVCs. The QTc is 551. Compared to an ECG from 03 February 2023, the T wave changes appear a bit more pronounced. Continuous Cardiac Monitoring per my interpretation: An order was placed for continuous cardiac monitoring. The monitor shows a rate of 91 with normal sinus rhythm. Critical Care Note: I have personally spent 47 minutes of critical care time in the direct management of this patient. This includes bedside care, interpretation of diagnostic studies, and testing, discussion with consultants, patient, and family members, and other required patient management activities. This 47 minutes is in excess of all separately billable procedures. MEDICAL DECISION MAKING: There is a moderate leukocytosis, this would be consistent with infection or just the stress of her current presentation. There is a normal hemoglobin and platelet count. Potassium and magnesium were both slightly low. The creatinine was somewhat elevated consistent with some mild acute kidney injury. No concerning liver enzyme elevation. ECG showed a normal sinus rhythm, no obvious acute ischemia. The QTc was prolonged which has been documented before. The patient's TSH was slightly elevated. COVID testing returned negative. Chest film per my review did not show mediastinal widening, pneumonia or pneumothorax. On exam, the patient appeared dehydrated. She was hypotensive. She denied any chest or abdominal pain. She did admit to some recent dizziness and a fall yesterday. The patient received IV saline, 2 L. She was given IV and oral magnesium. She was given IV potassium and IV Zofran. She received IV cefepime as empiric antibiotic coverage. The patient presents hypotensive. She was found to have some chemistry abnormalities. She has noticed some weakness and dizziness and actually fell yesterday because of her complaints. I do think the patient requires a hospital stay. She requires further IV hydration and monitoring. The cause for her current situation is unclear. Further work-up is warranted. I spoke with the patient and case management. The on-call hospitalist was consulted. DISPOSITION: Patient's presentation and findings warrant a hospital stay. Past Med/Surg History Medical History ADD (attention deficit disorder) Anxiety and depression Asthma exacerbation with COPD (chronic obstructive pulmonary disease) 2L continuous (increases to 3L with strenuous activity) Bipolar I disorder (05/13/13) Chronic obstructive pulmonary disease Diabetes mellitus, type 2 NIDDM GERD (gastroesophageal reflux disease) History of Madden's esophagus History of skin cancer melanoma (abdomen) Hx of suicide attempt 1995 Hyperlipidemia Hypertension Insomnia Left-sided heart failure Leg swelling BLE "REASON FOR LASIX" Migraine Morbid obesity MARY BETH (obstructive sleep apnea) USES BIPAP Osteoarthritis Peripheral neuropathy Restless leg syndrome Surgical History History of ankle surgery LEFT History of bronchoscopy 12/13/2018 History of cardiac cath 8 MONTHS AGO? NO STENTS ([facility]) History of cataract surgery BILATERAL History of cholecystectomy History of colonoscopy History of dilatation and curettage History of esophagogastroduodenoscopy (EGD) 01/25/19: MAC sedation at [facility] History of surgical removal of lesion MELANOMA REMOVED FROM ABDOMEN History of tooth extraction History of total left hip replacement Hx of section X1 Family History Father Colon cancer Diabetes Heart failure Family history of diabetes mellitus Family hx of colon cancer Mother Melanoma Grandfather (Paternal) Family history of diabetes mellitus Family hx of colon cancer Grandmother (Paternal) Family history of diabetes mellitus Sister Family history of diabetes mellitus Brother Family history of diabetes mellitus Other No family history of adverse response to anesthesia Social History Smoking Status: Smoker, status unknown Tobacco Type: E-cigarettes / Vaping Cigarettes Per Day: OCCAS. "TRYING TO QUIT"; Second Hand Exposure: No; Do You Dip or Chew Tobacco: No; Hx Alcohol Use: No Hx Substance Use: No Preferred Language: Taiwanese Communication Ability: Effective Visual Impairment: No Limitations Asset Protection Detective Required: No Beliefs That Will Affect Care: None Current Living Situation: Spouse Feels Safe at Home: Yes Assistive Devices: BiPap, Cane, Glasses, Oxygen - at Night and Walker Allergies Allergies Allergy/AdvReac Type Severity Reaction Status Date / Time Sulfa (Sulfonamide Allergy Severe ANAPHYLAXIS Verified 02/08/23 20:00 Antibiotics) sumatriptan Allergy Severe ANAPHYLAXIS Verified 02/08/23 20:00 adhesive Allergy Intermediate Blister Verified 02/08/23 20:00 morphine Allergy Intermediate EXTREME Verified 02/08/23 20:00 ITCHING amoxicillin AdvReac Intermediate GI SYMPTOMS Verified 02/08/23 20:00 clavulanic acid AdvReac Intermediate GI SYMPTOMS Verified 02/08/23 20:00 lactose AdvReac Intermediate Diarrhea Verified 02/08/23 20:00 venlafaxine AdvReac Intermediate Nightmare Verified 02/08/23 20:00 Home Meds Home Medications Medication Instructions Recorded Confirmed pantoprazole 40 mg tablet,delayed 40 mg PO BID 10/06/18 02/08/23 release (Protonix) alendronate 70 mg tablet (Fosamax) 70 mg PO WK 01/17/19 02/08/23 furosemide 80 mg tablet (Lasix) 80 mg PO Q OTHER DAY 01/17/19 02/08/23 aspirin 81 mg tablet,delayed 81 mg PO QAM 04/19/19 02/08/23 release (Rhys Low Dose Aspirin) spironolactone 25 mg tablet 25 mg PO QAM 04/19/19 02/08/23 (Aldactone) empagliflozin 25 mg tablet 25 mg PO QAM 05/13/19 02/08/23 (Jardiance) dicyclomine 20 mg tablet 20 mg PO Q8 PRN Abdominal Pain 01/18/20 02/08/23 metoprolol succinate 25 mg capsule 25 mg PO QAM 03/12/20 02/08/23 sprinkle, ext. release 24 hr ziprasidone HCl 60 mg capsule 60 mg PO BID 03/12/20 02/08/23 (Geodon) ascorbic acid (vitamin C) 1,000 mg 1 g PO QAM 09/27/20 02/08/23 tablet (Vitamin C) cholecalciferol (vitamin D3) 25 25 mcg PO QAM 09/27/20 02/08/23 mcg (1,000 unit) capsule (Vitamin D3) furosemide 40 mg tablet (Lasix) 60 mg PO Q OTHER DAY 09/27/20 02/08/23 lorazepam 1 mg tablet 1 mg PO DAILY PRN Panic Attack(S) 09/27/20 02/08/23 losartan 50 mg tablet 50 mg PO QAM 09/27/20 02/08/23 multivitamin 1 tab PO QAM 09/27/20 02/08/23 omega-3 acid ethyl esters 1 gram 2 cap PO BID 09/27/20 02/08/23 capsule (Lovaza) rosuvastatin 10 mg tablet (Crestor) 10 mg PO QAM 09/27/20 02/08/23 albuterol sulfate 0.63 mg/3 mL 0.63 mg continuous nebulization Q6 02/04/23 02/08/23 solution for nebulization PRN Shortness Of Breath Or Wheezing baclofen 5 mg tablet 2.5 mg PO TID PRN Muscle Spasm 02/04/23 02/08/23 diclofenac sodium 1 % topical gel 4 g topical QID PRN Pain 02/04/23 02/08/23 duloxetine 30 mg capsule,delayed 30 mg PO QAM 02/04/23 02/08/23 release duloxetine 60 mg capsule,delayed 60 mg PO QAM 02/04/23 02/08/23 release hydroxyzine HCl 10 mg tablet 10 mg PO QAM 02/04/23 02/08/23 hydroxyzine HCl 25 mg tablet 25 mg PO HS 02/04/23 02/08/23 hydroxyzine HCl 50 mg tablet 50 mg PO HS 02/04/23 02/08/23 insulin glargine 100 unit/mL (3 20 unit subcut QA 02/04/23 02/08/23 mL) subcutaneous pen (Lantus Solostar U-100 Insulin) ketoconazole 2 % shampoo 1 applic topical .2-3 TIMES PER 02/04/23 02/08/23 WEEK memantine 14 mg capsule 14 mg PO QAM 02/04/23 02/08/23 sprinkle,extended release 24hr ondansetron 4 mg disintegrating 4 mg translingual Q8 nausea 02/04/23 02/08/23 tablet oxybutynin chloride 10 mg 10 mg PO QAM 02/04/23 02/08/23 tablet,extended release 24 hr tirzepatide 15 mg/0.5 mL 15 mg subcut WK 02/04/23 02/08/23 subcutaneous pen injector ([place]) varenicline 1 mg tablet 1 mg PO AMHS 02/04/23 02/08/23 Previous Rx's Medication Instructions Recorded nebulizers #1 ea 09/18/19 BiPap Machine #1 ea 10/31/19 budesonide-formoterol HFA 160 2 puff inhalation BID #10.2 grams 03/12/20 mcg-4.5 mcg/actuation aerosol inhaler (Symbicort) CPAP Supplies #1 ea 03/15/20 montelukast 10 mg tablet 10 mg PO DAILY #90 tabs 03/20/20 tiotropium bromide 18 mcg capsule 1 cap inhalation DAILY #30 09/03/20 with inhalation device (Spiriva inhalations with HandiHaler) Results & Data (ED) Vital Signs Vital Signs - 24 hr 02/08/23 19:01 02/08/23 18:50 02/08/23 19:07 Temperature 37.2 C Temperature Source Oral Pulse Rate 83 81 82 Pulse Rate [Bilateral] Respiratory Rate 20 22 Blood Pressure 102/70 Blood Pressure [Right Arm] Blood Pressure Mean 80 Blood Pressure Mean [Right Arm] Blood Pressure Position Lying Pulse Oximetry 94 93 Oxygen Delivery Method Nasal Cannula Nasal Cannula Oxygen Flow Rate 2 2 Sepsis Recent Fever Within 48 Hours No Sepsis New/Unexplained Change in Mental Status No Sepsis Action Taken by Nursing No Action Required 02/08/23 19:07 02/08/23 19:07 Temperature 37.2 C Temperature Source Oral Pulse Rate Pulse Rate [Bilateral] 82 Respiratory Rate 22 Blood Pressure Blood Pressure [Right Arm] 102/70 Blood Pressure Mean Blood Pressure Mean [Right Arm] 80 Blood Pressure Position Pulse Oximetry 93 Oxygen Delivery Method Nasal Cannula Nasal Cannula Oxygen Flow Rate 2 3 Sepsis Recent Fever Within 48 Hours Sepsis New/Unexplained Change in Mental Status Sepsis Action Taken by Retirement Medications Current Medication List: was personally reviewed by me Laboratory Data Attestation: I reviewed the patient's lab results. 02/08/23 19:07 02/08/23 19:07 Lab Results 02/08/23 02/08/23 02/08/23 Range/Units 19:07 19:07 19:07 WBC 16.08 H (4.8-10.8) K/ul RBC 5.01 (4.20-5.40) M/uL Hgb 15.3 (12.0-16.0) g/dl Hct 42.8 (37.0-47.0) % MCV 85.4 (80.0-100.0) fL MCH 30.5 (25.0-34.0) pg MCHC 35.7 (32.0-36.0) g/dL RDW Std Deviation 39.0 (36.4-46.3) fL RDW Coeff of Vickie 12.7 (11.5-14.5) % Plt Count 313 (130-400) K/uL MPV 12.2 (9.4-12.4) fL Immature Gran % (Auto) 0.3 % Neut % (Auto) 71.2 % Lymph % (Auto) 19.3 % Medina % (Auto) 6.5 % Eos % (Auto) 2.3 % Baso % (Auto) 0.4 % Neut # (Auto) 11.46 H (1.40-6.50) K/uL Lymph # (Auto) 3.10 (1.2-3.4) K/uL Medina # (Auto) 1.04 H (0.11-0.59) K/uL Eos # (Auto) 0.37 (0-0.50) K/uL Baso # (Auto) 0.06 (0-0.2) K/uL Immature Gran # (Auto) 0.05 (0.01-0.20) K/uL Sodium 133 L (136-145) mmol/L Potassium 3.1 L (3.5-5.1) mmol/L Chloride 98 (98-107) mmol/L Carbon Dioxide 26 (21-32) mmol/L Anion Gap 9 (3-11) BUN 10 (6-23) mg/dl Creatinine 1.21 H (0.6-1.2) mg/dl Est Cr Clr Drug Dosing Not Reportable Est GFR ( Amer) 57.9 ml/min Est GFR (Non-Af Amer) 50.0 ml/min BUN/Creatinine Ratio 8.3 L (10-20) Glucose 121 H (70-99(Fasting)) mg/dl Lactate 1.6 (0.4-2.0) mmol/L Calcium 9.3 (8.6-10.3) mg/dl Magnesium 1.6 L (1.7-2.4) mg/dl Total Bilirubin 0.8 (0.2-1.0) mg/dl AST 24 (13-39) U/L ALT 31 (7-52) U/L Alkaline Phosphatase 110 H (34-104) U/L Troponin I High Sens 3.2 (0-14) pg/ml Total Protein 6.7 (6.0-8.3) gm/dl Albumin 3.9 (3.4-5.0) gm/dl Globulin 2.8 (2.5-4.0) gm/dl Albumin/Globulin Ratio 1.4 (0.9-2) TSH (0.300-4.500) uIu/ml SARS-CoV-2, RNA, NAAT (NEGATIVE) 02/08/23 02/08/23 Range/Units 19:07 19:30 WBC (4.8-10.8) K/ul RBC (4.20-5.40) M/uL Hgb (12.0-16.0) g/dl Hct (37.0-47.0) % MCV (80.0-100.0) fL MCH (25.0-34.0) pg MCHC (32.0-36.0) g/dL RDW Std Deviation (36.4-46.3) fL RDW Coeff of Vickie (11.5-14.5) % Plt Count (130-400) K/uL MPV (9.4-12.4) fL Immature Gran % (Auto) % Neut % (Auto) % Lymph % (Auto) % Medina % (Auto) % Eos % (Auto) % Baso % (Auto) % Neut # (Auto) (1.40-6.50) K/uL Lymph # (Auto) (1.2-3.4) K/uL Medina # (Auto) (0.11-0.59) K/uL Eos # (Auto) (0-0.50) K/uL Baso # (Auto) (0-0.2) K/uL Immature Gran # (Auto) (0.01-0.20) K/uL Sodium (136-145) mmol/L Potassium (3.5-5.1) mmol/L Chloride (98-107) mmol/L Carbon Dioxide (21-32) mmol/L Anion Gap (3-11) BUN (6-23) mg/dl Creatinine (0.6-1.2) mg/dl Est Cr Clr Drug Dosing Est GFR ( Amer) ml/min Est GFR (Non-Af Amer) ml/min BUN/Creatinine Ratio (10-20) Glucose (70-99(Fasting)) mg/dl Lactate (0.4-2.0) mmol/L Calcium (8.6-10.3) mg/dl Magnesium (1.7-2.4) mg/dl Total Bilirubin (0.2-1.0) mg/dl AST (13-39) U/L ALT (7-52) U/L Alkaline Phosphatase (34-104) U/L Troponin I High Sens (0-14) pg/ml Total Protein (6.0-8.3) gm/dl Albumin (3.4-5.0) gm/dl Globulin (2.5-4.0) gm/dl Albumin/Globulin Ratio (0.9-2) TSH 6.570 H (0.300-4.500) uIu/ml SARS-CoV-2, RNA, NAAT NEGATIVE (NEGATIVE) Administered Medications Discontinued Medications Sodium Chloride (Nss 1000ml) 1,000 mls @ 999 mls/hr IV .Q1H1M ONE Stop: 02/08/23 19:48 Last Admin: 02/08/23 19:28 Dose: 999 mls/hr Documented By: ARS Magnesium Sulfate/Dextrose (Magnesium Sulfate / D5w) 1 gm in 100 mls @ 100 mls/hr IV NOW STA Stop: 02/08/23 21:15 Last Admin: 02/08/23 20:44 Dose: 100 mls/hr Documented By: TBS Potassium Chloride (K John / Wtr) 10 meq in 100 mls @ 100 mls/hr IV ONE ONE Stop: 02/08/23 21:15 Last Admin: 02/08/23 20:44 Dose: 100 mls/hr Documented By: TBS Sodium Chloride (Nss 1000ml) 1,000 mls @ 999 mls/hr IV .Q1H1M ONE Stop: 02/08/23 21:17 Last Admin: 02/08/23 20:44 Dose: 999 mls/hr Documented By: TBS Magnesium Oxide (Magnesium Oxide 400 Mg Tab) 400 mg PO NOW STA Stop: 02/08/23 20:17 Last Admin: 02/08/23 20:45 Dose: 400 mg Documented By: TBS Ondansetron HCl (Ondansetron Inj 2 Mg/Ml 2 Ml Vial) 4 mg IV NOW STA Stop: 02/08/23 18:49 Last Admin: 02/08/23 19:28 Dose: 4 mg Documented By: ARS Imaging Data My Impression: Chest x-ray: Per my review, there is no mediastinal widening, pneumonia or pneumothorax. Some chronic change was seen. Discharge Plan Visit Data Chief Complaint: Cardiac Assessment Stated Complaint: EXERTIONAL SOB, CHEST PAIN. HYPOTENSTION ED Provider: [place] Hall Discharge Problem: Hypotension, Hypokalemia, Diarrhea, LETI (acute kidney injury), Leukocytosis, Hypomagnesemia Patient Disposition: Admitted As Inpatient Condition: Fair Forms Stand Alone Forms: My [facility] Prescriptions Prescriptions: No Action (DME) nebulizers Misc See Rx Instructions .ROUTE .MEDSUPPLY Qty: 1 0RF Rx Instructions: Use as directed (DME) CPAP Supplies Misc See Rx Instructions .ROUTE .MEDSUPPLY Qty: 1 0RF Rx Instructions: PT. REQUESTS NASAL PILLOWS AND CHIN STRAP. GUCCI'S montelukast 10 mg tablet 10 mg PO DAILY Qty: 90 3RF Patient Comments: TAKES HS Spiriva with HandiHaler 18 mcg capsule, w/inhalation device 1 cap inhalation DAILY Qty: 30 5RF Rx Instructions: puncture 1 cap using device; one dose = 2 inhalations (DME) BiPap Machine Misc See Rx Instructions .ROUTE .MEDSUPPLY Qty: 1 0RF Rx Instructions: BiPAP i24/e16 cm H20, tubing, supplies, heated humidification. [place] with AHI and compliance. 99-year ziprasidone HCl [Geodon] 60 mg capsule 60 mg PO BID metoprolol succinate 25 mg capsule,sprinkle,ER 24hr 25 mg PO QAM budesonide-formoterol [Symbicort] 160-4.5 mcg/actuation HFA aerosol inhaler 2 puff INHALATION BID Qty: 10.2 5RF pantoprazole [Protonix] 40 mg tablet,delayed release (DR/EC) 40 mg PO BID dicyclomine 20 mg Tablet 20 mg PO Q8 PRN (Reason: Abdominal Pain) furosemide [Lasix] 80 mg Tablet 80 mg PO Q OTHER DAY Hold Instructions: Resume on 02/06/23. Resume when diet and appetite back to normal Rx Instructions: ALTERNATES EVERY OTHER DAY WITH 60MG alendronate [Fosamax] 70 mg Tablet 70 mg PO WK Rx Instructions: FRIDAYS aspirin [Rhys Low Dose Aspirin] 81 mg Tablet,Delayed Release (Dr/Ec) 81 mg PO QAM spironolactone [Aldactone] 25 mg Tablet 25 mg PO QAM Hold Instructions: Resume on 02/06/23. Resume when diet and appetite is back to normal Jardiance 25 mg tablet 25 mg PO QAM multivitamin Tablet 1 tab PO QAM losartan 50 mg Tablet 50 mg PO QAM Hold Instructions: Resume on 02/06/23. resume when systolic blood pressure above 140 furosemide [Lasix] 40 mg Tablet 60 mg PO Q OTHER DAY Hold Instructions: Resume on 02/06/23. Resume when diet and appetite back to normal Rx Instructions: ALTERNATES EVERY OTHER DAY WITH 80MG ascorbic acid (vitamin C) [Vitamin C] 1,000 mg Tablet 1 g PO QAM lorazepam 1 mg Tablet 1 mg PO DAILY PRN (Reason: Panic Attack(S)) cholecalciferol (vitamin D3) [Vitamin D3] 25 mcg (1,000 unit) Capsule 25 mcg PO QAM rosuvastatin [Crestor] 10 mg Tablet 10 mg PO QAM omega-3 acid ethyl esters [Lovaza] 1 gram Capsule 2 cap PO BID memantine 14 mg capsule,sprinkle,ER 24hr 14 mg PO QAM albuterol sulfate 0.63 mg/3 mL solution for nebulization 0.63 mg continuous nebulization Q6 PRN (Reason: Shortness Of Breath Or Wheezing) insulin glargine [Lantus Solostar U-100 Insulin] 100 unit/mL (3 mL) insulin pen 20 unit SUBCUT QAM baclofen 5 mg tablet 2.5 mg PO TID PRN (Reason: Muscle Spasm) Mounjaro 15 mg/0.5 mL pen injector 15 mg SUBCUT WK Rx Instructions: FRIDAYS hydroxyzine HCl 25 mg tablet 25 mg PO HS Rx Instructions: TOTAL DOSE 75 MG--TAKES WITH 50 MG TAB. DO NOT TAKE WITH LORAZAPAM. hydroxyzine HCl 10 mg tablet 10 mg PO QAM duloxetine 30 mg capsule,delayed release(DR/EC) 30 mg PO QAM Rx Instructions: TOTAL DOSE 90 MG--TAKES WITH 60 MG CAP. duloxetine 60 mg capsule,delayed release(DR/EC) 60 mg PO QAM Rx Instructions: TOTAL DOSE 90 MG--TAKES WITH 60 MG CAP. hydroxyzine HCl 50 mg tablet 50 mg PO HS Rx Instructions: do not take with lorazepam-- TOTAL DOSE 75 MG--TAKES WITH 25 MG TAB. ondansetron 4 mg tablet,disintegrating 4 mg translingual Q8 ketoconazole 2 % shampoo 1 applic TOPICAL .2-3 TIMES PER WEEK varenicline 1 mg tablet 1 mg PO AMHS diclofenac sodium 1 % gel 4 g TOPICAL QID PRN (Reason: Pain) oxybutynin chloride 10 mg tablet extended release 24hr 10 mg PO QAM Referrals Referrals: Enzo Michael MD [Primary Care Provider] -
[2023-02-08 19:36] LABS: Basophils # (auto) 0.06 K/uL (0-0.2); Basophils % (auto) 0.4 %; Eosinophils # (auto) 0.37 K/uL (0-0.50); Eosinophils % (auto) 2.3 %; Hematocrit (blood only) 42.8 % (37.0-47.0); Hemoglobin 15.3 g/dl (12.0-16.0); Immature Granulocytes # (auto) 0.05 K/uL (0.01-0.20); Immature Granulocytes % (auto) 0.3 %; Lymphocytes % (auto) 19.3 %; Mean Corpuscular Hemoglobin 30.5 pg (25.0-34.0); Mean Corpuscular Hgb Conc 35.7 g/dL (32.0-36.0); Mean Corpuscular Volume 85.4 fL (80.0-100.0); Mean Platelet Volume 12.2 fL (9.4-12.4); Monocytes # (auto) 1.04 K/uL (0.11-0.59); Monocytes % (auto) 6.5 %; Neutrophils # (auto) 11.46 K/uL (1.40-6.50); Neutrophils % (auto) 71.2 %; Platelet Count 313 K/uL (130-400); RDW Coefficient of Variation 12.7 % (11.5-14.5); Red Blood Count 5.01 M/uL (4.20-5.40); White Blood Count 16.08 K/ul (4.8-10.8)
[2023-02-08 19:54] LABS: Alanine Aminotransferase 31 U/L (7-52); Albumin Globulin Ratio 1.4 (0.9-2); Albumin Level 3.9 gm/dl (3.4-5.0); Alkaline Phosphatase 110 U/L (34-104); Anion Gap 9 (3-11); Aspartate Aminotransferase 24 U/L (13-39); BUN Creatinine Ratio 8.3 (10-20); Bilirubin,Total 0.8 mg/dl (0.2-1.0); Blood Urea Nitrogen 10 mg/dl (6-23); Calcium 9.3 mg/dl (8.6-10.3); Carbon Dioxide 26 mmol/L (21-32); Chloride 98 mmol/L (98-107); Est GFR (African American) 57.9 ml/min; Globulin 2.8 gm/dl (2.5-4.0); Glucose 121 mg/dl (70-99(Fasting)); Magnesium 1.6 mg/dl (1.7-2.4); Potassium 3.1 mmol/L (3.5-5.1); Sodium 133 mmol/L (136-145); Total Protein 6.7 gm/dl (6.0-8.3)
[2023-02-08 20:00] LABS: Troponin I High Sensitivity 3.2 pg/ml (0-14)
[2023-02-08 20:05] LABS: Thyroid Stimulating Hormone 6.57 uIu/ml (0.300-4.500)
[2023-02-08] MEDS ORDERED: POTASSIUM CHLORIDE / WTR 10 MEQ/100 ML PLCT IV ONE (20:16)
[2023-02-08] MEDS ORDERED: MAGNESIUM OXIDE 400 MG TAB PO STA (20:16)
[2023-02-08] MEDS ORDERED: MAGNESIUM SULFATE / D5W 1 GM/100 ML BAG IV STA (20:16)
[2023-02-08] MEDS ORDERED: CEFEPIME 2,000 MG/20 ML VIAL IV STA (21:13)
[2023-02-08] MEDS ORDERED: POTASSIUM CHLORIDE PWD 20 MEQ PACK PO STA ×2 (21:23→22:56)
[2023-02-08 21:31] LABS: T4 Free Thyroxine 1.11 ng/dl (0.61-1.60)
--- NOTE | 2023-02-08 21:38 | History & Physical Report ---
Date of Service February 08, 2023 Assessment & Plan (1) LETI (acute kidney injury): (2) Hypotension: (3) Hypokalemia: (4) Diarrhea: (5) MARY BETH (obstructive sleep apnea): (6) Asthma exacerbation with COPD (chronic obstructive pulmonary disease): (7) Bipolar I disorder: (8) Anxiety and depression: (9) Chronic obstructive pulmonary disease: (10) Diabetes mellitus, type 2: Plan This is a 57 year old female with PMH of insulin-dependent DM II, MARY BETH, Asthma, Bipolar disorder, chronic diastolic CHF and other medical problems listed below who was admitted earlier this week from 02/03-02/05 for LETI due to dehydration and sepsis. She presents this evening with the recurrence of nausea and diarrhea in setting of poor appetite and 3 falling episodes 2/2 generalized weakness. Please see Dr. Brush's addendum for plan details. History of Present Illness Chief Complaint: diarrhea Primary Care Provider: Enzo Michael MD This is a 57 year old female with PMH of insulin-dependent DM II, MARY BETH, Asthma, Bipolar disorder, chronic diastolic CHF and other medical problems listed below who was admitted earlier this week from 02/03-02/05 for LETI due to dehydration and sepsis. Patient improved with symptomatic treatment including IV fluids and did not have any recurrent diarrhea while admitted, so stool studies were not sent. CT A/P which was unremarkable. Renal function improved prior to discharge home but lasix, spironolactone and losartan were held at discharge with instructions for when to resume with PCP and psych follow-up. She felt well at time of discharge home on Wednesday, but then nausea recurred and she was not able to tolerate much of any food by mouth since then. Has been trying to drink water. On Wednesday, noted increased generalized weakness and had to falls when ambulating with a walker when she stepped forward and legs gave out. States that weakness is general and that both legs were giving out. Denies any head trauma or loss of consciousness. Yesterday, diarrhea recurred and she endorsed 2 episodes of watery brown stool as well as persistent and worsening nausea. Denies any vomiting. Per EMS, blood pressure was low with systolic in the 80s prior to arrival to [facility] ED. Has continued to hold Lasix, losartan and lithium. Endorses lightheadedness and generalized weakness. No fever, chills, CP, wheezing, vomiting, abdominal pain, dysuria, constiption. Lives with at home. Allergies Allergy/AdvReac Type Severity Reaction Status Date / Time Sulfa (Sulfonamide Allergy Severe ANAPHYLAXIS Verified 02/08/23 20:00 Antibiotics) sumatriptan Allergy Severe ANAPHYLAXIS Verified 02/08/23 20:00 adhesive Allergy Intermediate Blister Verified 02/08/23 20:00 morphine Allergy Intermediate EXTREME Verified 02/08/23 20:00 ITCHING amoxicillin AdvReac Intermediate GI SYMPTOMS Verified 02/08/23 20:00 clavulanic acid AdvReac Intermediate GI SYMPTOMS Verified 02/08/23 20:00 lactose AdvReac Intermediate Diarrhea Verified 02/08/23 20:00 venlafaxine AdvReac Intermediate Nightmare Verified 02/08/23 20:00 Home Medications Medication Instructions Recorded Confirmed Type pantoprazole 40 mg tablet,delayed 40 mg PO BID 10/06/18 02/08/23 History release (Protonix) alendronate 70 mg tablet (Fosamax) 70 mg PO WK 01/17/19 02/08/23 History furosemide 80 mg tablet (Lasix) 80 mg PO Q OTHER DAY 01/17/19 02/08/23 History aspirin 81 mg tablet,delayed 81 mg PO QAM 04/19/19 02/08/23 History release (Rhys Low Dose Aspirin) spironolactone 25 mg tablet 25 mg PO QAM 04/19/19 02/08/23 History (Aldactone) empagliflozin 25 mg tablet 25 mg PO QAM 05/13/19 02/08/23 History (Jardiance) nebulizers #1 ea 09/18/19 02/08/23 Rx BiPap Machine #1 ea 10/31/19 02/08/23 Rx dicyclomine 20 mg tablet 20 mg PO Q8 PRN Abdominal Pain 01/18/20 02/08/23 History budesonide-formoterol HFA 160 2 puff inhalation BID #10.2 grams 03/12/20 02/08/23 Rx mcg-4.5 mcg/actuation aerosol inhaler (Symbicort) metoprolol succinate 25 mg capsule 25 mg PO QAM 03/12/20 02/08/23 History sprinkle, ext. release 24 hr ziprasidone HCl 60 mg capsule 60 mg PO BID 03/12/20 02/08/23 History (Geodon) CPAP Supplies #1 ea 03/15/20 02/08/23 Rx montelukast 10 mg tablet 10 mg PO DAILY #90 tabs 03/20/20 02/08/23 Rx tiotropium bromide 18 mcg capsule 1 cap inhalation DAILY #30 09/03/20 02/08/23 Rx with inhalation device (Spiriva inhalations with HandiHaler) ascorbic acid (vitamin C) 1,000 mg 1 g PO QAM 09/27/20 02/08/23 History tablet (Vitamin C) cholecalciferol (vitamin D3) 25 25 mcg PO QAM 09/27/20 02/08/23 History mcg (1,000 unit) capsule (Vitamin D3) furosemide 40 mg tablet (Lasix) 60 mg PO Q OTHER DAY 09/27/20 02/08/23 History lorazepam 1 mg tablet 1 mg PO DAILY PRN Panic Attack(S) 09/27/20 02/08/23 History losartan 50 mg tablet 50 mg PO QAM 09/27/20 02/08/23 History multivitamin 1 tab PO QAM 09/27/20 02/08/23 History omega-3 acid ethyl esters 1 gram 2 cap PO BID 09/27/20 02/08/23 History capsule (Lovaza) rosuvastatin 10 mg tablet (Crestor) 10 mg PO QAM 09/27/20 02/08/23 History albuterol sulfate 0.63 mg/3 mL 0.63 mg continuous nebulization Q6 02/04/23 02/08/23 History solution for nebulization PRN Shortness Of Breath Or Wheezing baclofen 5 mg tablet 2.5 mg PO TID PRN Muscle Spasm 02/04/23 02/08/23 History diclofenac sodium 1 % topical gel 4 g topical QID PRN Pain 02/04/23 02/08/23 History duloxetine 30 mg capsule,delayed 30 mg PO QAM 02/04/23 02/08/23 History release duloxetine 60 mg capsule,delayed 60 mg PO QAM 02/04/23 02/08/23 History release hydroxyzine HCl 10 mg tablet 10 mg PO QAM 02/04/23 02/08/23 History hydroxyzine HCl 25 mg tablet 25 mg PO HS 02/04/23 02/08/23 History hydroxyzine HCl 50 mg tablet 50 mg PO HS 02/04/23 02/08/23 History insulin glargine 100 unit/mL (3 20 unit subcut QAM 02/04/23 02/08/23 History mL) subcutaneous pen (Lantus Solostar U-100 Insulin) ketoconazole 2 % shampoo 1 applic topical .2-3 TIMES PER 02/04/23 02/08/23 History WEEK memantine 14 mg capsule 14 mg PO QAM 02/04/23 02/08/23 History sprinkle,extended release 24hr ondansetron 4 mg disintegrating 4 mg translingual Q8 nausea 02/04/23 02/08/23 History tablet oxybutynin chloride 10 mg 10 mg PO QAM 02/04/23 02/08/23 History tablet,extended release 24 hr tirzepatide 15 mg/0.5 mL 15 mg subcut WK 02/04/23 02/08/23 History subcutaneous pen injector (Mounjaro) varenicline 1 mg tablet 1 mg PO AMHS 02/04/23 02/08/23 History Past Med/Surg History Medical History (Updated 02/09/23 @ 00:24 by Alka Morgan) Abnormal PFT ADD (attention deficit disorder) Anxiety and depression Asthma exacerbation with COPD (chronic obstructive pulmonary disease) 2L continuous (increases to 3L with strenuous activity) Bipolar I disorder (05/13/13) Chronic obstructive pulmonary disease Diabetes mellitus, type 2 NIDDM GERD (gastroesophageal reflux disease) History of Madden's esophagus History of skin cancer melanoma (abdomen) Hx of suicide attempt 1995 Hyperlipidemia Hypertension Insomnia Left-sided heart failure Leg swelling BLE "REASON FOR LASIX" Migraine Morbid obesity MARY BETH (obstructive sleep apnea) USES BIPAP Osteoarthritis Peripheral neuropathy Restless leg syndrome Surgical History History of ankle surgery LEFT History of bronchoscopy 12/13/2018 History of cardiac cath 8 MONTHS AGO? NO STENTS ([facility]) History of cataract surgery BILATERAL History of cholecystectomy History of colonoscopy History of dilatation and curettage History of esophagogastroduodenoscopy (EGD) 01/25/19: MAC sedation at [facility] History of surgical removal of lesion MELANOMA REMOVED FROM ABDOMEN History of tooth extraction History of total left hip replacement Hx of section X1 Family History Father Colon cancer Diabetes Heart failure Family history of diabetes mellitus Family hx of colon cancer Mother Melanoma Grandfather (Paternal) Family history of diabetes mellitus Family hx of colon cancer Grandmother (Paternal) Family history of diabetes mellitus Sister Family history of diabetes mellitus Brother Family history of diabetes mellitus Other No family history of adverse response to anesthesia Social History Smoking Status: Former smoker Tobacco Type: E-cigarettes / Vaping Cigarettes Per Day: OCCAS. "TRYING TO QUIT"; Second Hand Exposure: No; Do You Dip or Chew Tobacco: No; Tobacco Cessation Education Requested by Patient: No Hx Alcohol Use: No Hx Substance Use: No Preferred Language: Bulgarian Communication Ability: Effective Visual Impairment: No Limitations Dye Lab Technician Required: No Beliefs That Will Affect Care: None Current Living Situation: Spouse Other Information That Helps Us Care for You: No Feels Safe at Home: Yes Safety Concerns: Feels Safe At This Time Assistive Devices: Glasses, Oxygen - Continuous and Walker Review of Systems Review of Systems: At least ten systems reviewed and negative except as noted in the HPI. Physical Exam Physical Exam: General Appearance: WD/WN, vitals as above, NAD, sitting up in bed, pleasant, conversing easily Head: normocephalic, atraumatic Eyes: normal inspection, PERRL, conjunctivae normal, anicteric sclerae ENT: external ear and nose normal, oropharynx with dry mucous membranes Neck: normal visual inspection, trachea midline, no thyromegaly Respiratory: normal respiratory effort, lungs clear to auscultation, no wheeze, rales, rhonchi. No accessory muscle use Cardiovascular: regular rate, rhythm, no murmur, normal peripheral pulses, no BLE edema. Vessels: no JVD Chest: normal inspection of chest Abdomen/GI: normal bowel sounds, soft, nontender, no hepatosplenomegaly Extremities/Musculoskeletal: no cyanosis or clubbing, extremities motor strength 5/5 Neurologic: PERRL, EOMI, accommodation nl, no face palsy, no dysarthria, CN's II-XI intact bilaterally and moves all extremities Psychiatric: A+Ox3, euthymic affect Skin: no rashes, normal color, warm/dry Results & Data Results & Data Vital Signs (Past 12 Hours) Vital Signs Temp Pulse Pulse Resp BP BP Pulse Ox 02/08/23 19:07 02/08/23 19:07 37.2 C 82 22 102/70 93 02/08/23 19:07 37.2 C 82 22 102/70 93 02/08/23 18:50 81 02/08/23 19:01 83 20 94 O2 Del Method O2 Flow Rate 02/08/23 19:07 Nasal Cannula 3 02/08/23 19:07 Nasal Cannula 2 02/08/23 19:07 Nasal Cannula 2 02/08/23 18:50 02/08/23 19:01 Nasal Cannula 2 Laboratory Results Short CBC 02/08/23 Range/Units 19:07 WBC 16.08 H (4.8-10.8) K/ul Hgb 15.3 (12.0-16.0) g/dl Hct 42.8 (37.0-47.0) % Plt Count 313 (130-400) K/uL BMP 02/08/23 19:07 Sodium 133 L Potassium 3.1 L Chloride 98 Carbon Dioxide 26 BUN 10 Creatinine 1.21 H Glucose 121 H Calcium 9.3 Liver Function 02/08/23 Range/Units 19:07 Total Bilirubin 0.8 (0.2-1.0) mg/dl AST 24 (13-39) U/L ALT 31 (7-52) U/L Alkaline Phosphatase 110 H (34-104) U/L Albumin 3.9 (3.4-5.0) gm/dl Urine 02/08/23 Range/Units 21:30 Urine Color Yellow Urine Appearance Clear (Clear) Urine pH 7.5 (4.5-7.5) Ur Specific [place] 1.006 (1.000-1.030) Urine Protein Negative (Negative) Urine Glucose (UA) 2+ H (Negative) Supervising Physician Co-Signing Physician Notes IM ATTENDING : Patient seen and examined. History obtained from patient and records. Preceding documentation by Ms. Vira Benz PA-C reviewed. FINAL ASSESSMENT AND PLAN as follows : Hyponatremia, ARF secondary to recurrent diarrhea Rule out C. difficile Hypertension, BP on the lower side Chronic diastolic heart failure (EF 55%, TTE 2021) Chronic respiratory failure secondary to COPD on home O2 MARY BETH on CPAP History GERD DM2, insulin requiring, well-controlled as of recent hemoglobin A1c of 5.8 this month Anxiety/mood disorder, lithium held during last confinement due to supratherapeutic levels until patient able to follow-up with psychiatrist, at baseline History RLS/myoclonic jerks as per records Hypokalemia secondary to diarrhea and home insulin Rx Possible deconditioning past tobacco abuse OBS Medical digital imaging specialist creatinine response to IVF Stool CS, stool C. difficile Replace potassium Basal bolus insulin, ISS BG goal 1 10-1 40, carb count coverage PT OT eval DVT prophylaxis. Lovenox subcu Full code Text document was generated using [employer] voice recognition software. It may contain grammatical or spelling errors. Kindly contact undersigned for clarification of any documentation item in question. (2) Hypotension Hypotension type: unspecified hypotension type Qualified Code(s): I95.9 - Hypotension, unspecified (4) Diarrhea Diarrhea type: unspecified type Qualified Code(s): R19.7 - Diarrhea, unspecified
[2023-02-08 22:13] LABS: Appearance Urine Clear (Clear); Bilirubin Urine Negative (Negative); Blood Urine Negative (Negative); Color Urine Yellow; Glucose Urine UA 2+ (Negative); Ketones Urine Negative (Negative); Leukocyte Esterase Urine Negative (Negative); Nitrite Urine Negative (Negative); Protein Urine Negative (Negative); Specific Gravity Urine 1.006 (1.000-1.030); Urobilinogen Urine Negative (Negative); pH Urine 7.5 (4.5-7.5)
[2023-02-08] MEDS ORDERED: ALBUMIN 25% 25 GM/100 ML VIAL IV STA (22:41)
[2023-02-08] MEDS ORDERED: PROMETHAZINE HCL 12.5 MG in SODIUM CHLORIDE 0.9% 50 ML IV PRN (22:49)
[2023-02-09] MEDS ORDERED: GLUCAGON FOR INJ 1 MG VIAL SQ PRN (00:11)
[2023-02-09] MEDS ORDERED: DICLOFENAC SOD 1% GEL 100 GM TUBE EXT PRN (00:11)
[2023-02-09] MEDS ORDERED: ACETAMINOPHEN 325 MG TAB PO PRN (00:11)
[2023-02-09] MEDS ORDERED: GLUCOSE 10 TAB/TUBE PO PRN (00:11)
[2023-02-09] MEDS ORDERED: BACLOFEN 10 MG TAB PO PRN (00:11)
[2023-02-09] MEDS ORDERED: DEXTROSE 50% 50 ML SYRINGE IV PRN (00:11)
[2023-02-09] MEDS ORDERED: GLUCOSE 40% GEL 15 GM TUBE PO PRN (00:11)
[2023-02-09] MEDS ORDERED: LORazepam 1 MG TAB PO PRN (00:11)
[2023-02-09] MEDS ORDERED: CARBOHYDRATES FOR HYPOGLYCEMIA PO PRN (00:11)
[2023-02-09] MEDS: INSULIN ASPART PER UNIT CHARGE SC SCH ×5 (00:50→19:15)
[2023-02-09 07:06] LABS: Basophils # (auto) 0.05 K/uL (0-0.2); Basophils % (auto) 0.4 %; Eosinophils # (auto) 0.41 K/uL (0-0.50); Eosinophils % (auto) 3.4 %; Hematocrit (blood only) 42.6 % (37.0-47.0); Immature Granulocytes # (auto) 0.04 K/uL (0.01-0.20); Immature Granulocytes % (auto) 0.3 %; Lymphocytes # (auto) 3.15 K/uL (1.2-3.4); Lymphocytes % (auto) 26.4 %; Mean Corpuscular Hemoglobin 30.5 pg (25.0-34.0); Mean Corpuscular Hgb Conc 35.2 g/dL (32.0-36.0); Mean Corpuscular Volume 86.8 fL (80.0-100.0); Mean Platelet Volume 12.2 fL (9.4-12.4); Monocytes # (auto) 0.79 K/uL (0.11-0.59); Monocytes % (auto) 6.6 %; Neutrophils # (auto) 7.47 K/uL (1.40-6.50); Neutrophils % (auto) 62.9 %; Platelet Count 280 K/uL (130-400); RDW Coefficient of Variation 12.9 % (11.5-14.5); RDW Standard Deviation 40.3 fL (36.4-46.3); Red Blood Count 4.91 M/uL (4.20-5.40); White Blood Count 11.91 K/ul (4.8-10.8)
[2023-02-09] MEDS ORDERED: ALBUMIN 25% 25 GM/100 ML VIAL IV ONE (07:10)
[2023-02-09 07:22] LABS: Calcium 8.8 mg/dl (8.6-10.3); Magnesium 2.1 mg/dl (1.7-2.4); Potassium 4.1 mmol/L (3.5-5.1)
[2023-02-09 07:32] LABS: BUN Creatinine Ratio 8.2 (10-20); Creatinine Clr Calc Pharmacy 79.3 ml/min; Est GFR (African American) 88.8 ml/min; Est GFR (Non-African American) 76.6 ml/min
--- NOTE | 2023-02-09 07:44 | XRay Report ---
XR chest 1V portable CLINICAL HISTORY: weakness COMPARISON STUDY: Chest CT May 13, 2019. Chest radiograph July 31. FINDINGS: Lung volumes are again noted with elevation of the right hemidiaphragm. Linear lung densiti es suggest atelectasis. There is no consolidation to suggest pneumonia and there is no evidence for p ulmonary edema. IMPRESSION: No acute cardiopulmonary findings. No significant change in appearance of the chest. ACT 112: Negative or not required by law. Electronically signed by: Matthew Mahmood M.D. 02/09/2023 7:43 AM
[2023-02-09] MEDS: CHANTIX~ORDER AWAITING ACTION SCH ×2 (08:56→15:23)
[2023-02-09] MEDS: LANTUS PER UNIT CHARGE SQ SCH (09:01)
[2023-02-09] MEDS: DULoxetine HCL 30 MG CAP PO SCH (09:06)
[2023-02-09] MEDS: MONTELUKAST SODIUM 10 MG TABLET PO SCH (09:06)
[2023-02-09] MEDS: ASPIRIN 81 MG ECTAB PO SCH (09:06)
[2023-02-09] MEDS: DULoxetine HCL 60 MG CAP PO SCH (09:07)
[2023-02-09] MEDS: PANTOprazole 40 MG TAB PO SCH ×2 (09:07→19:47)
[2023-02-09] MEDS: ROSUVASTATIN CALCIUM 10 MG TAB PO SCH (09:07)
[2023-02-09] MEDS: MULTIVITAMIN TAB PO SCH (09:07)
[2023-02-09] MEDS: OXYBUTYNIN CHLORIDE XL 5 MG TABCR PO SCH (09:07)
[2023-02-09] MEDS: METOPROLOL SUCC 25MG EXT REL TAB PO SCH (09:07)
[2023-02-09] MEDS: FLUTICASONE/VILANTEROL 100/25MCG 14 PUFFS/INHALER INH SCH (09:08)
[2023-02-09] MEDS: ENOXAPARIN INJ 40 MG/0.4 ML SYR SQ SCH (09:08)
[2023-02-09] MEDS: UMECLIDINIUM BROMIDE 62.5MCG/BLISTER 7 PUFFS/INHALER INH SCH (09:08)
--- NOTE | 2023-02-09 10:56 | Electrocardiogram Report ---
Test Reason : Blood Pressure : / mmHG Vent. Rate : 082 BPM Atrial Rate : 082 BPM P-R Int : 172 ms QRS Dur : 080 ms QT Int : 472 ms P-R-T Axes : 031 -07 019 degrees QTc Int : 551 ms Normal sinus rhythm Diffuse Minor Nonspecific T wave abnormality Prolonged QT Abnormal ECG When compared with ECG of 03-FEB-2023 22:57, No significant change was found Confirmed by Conrado Fontenot ([id number]) on 02/09/2023 10:55:38 AM Referred By: REFERRED SELF Confirmed By:Conrado Fontenot
--- NOTE | 2023-02-09 16:53 | Hospitalist Progress Note ---
Date of Service February 09, 2023 Assessment & Plan (1) LETI (acute kidney injury): Plan: due to nausea/vomiting, describes 5 episodes of diarrhea again at home Cr improved after IVF will continue IVF for another day repeat BMP tomorrow (2) Hypotension: Plan: Due to GI losses. Hold antihypertensives continue on IVF (3) Hypokalemia: Plan: repleted (4) Diarrhea: Plan: stool studies ordered (previously patient had diarrhea at home which resolved here. stool studies not sent on last admission due to no diarrhea in the hospital) (5) MARY BETH (obstructive sleep apnea): (6) Bipolar I disorder: Plan: continue ziprasidone (7) Anxiety and depression: Plan: continue duloxetine, hydroxyzine (8) Chronic obstructive pulmonary disease: Plan: stable, no wheezing on exam. continue home nebulizer/inhalers (9) Diabetes mellitus, type 2: Plan: glycemic pharmacy management Admission and Anticipated Discharge Date Admission Date: February 08, 2023 Subjective "I feel back to normal" Ate breakfast and lunch with no difficulty BP noted to be soft but no light headedness, no dizziness Review of Systems Review of Systems: as above Physical Exam Physical Exam: Appears well, no acute distress, pleasant and comfortable ENMT: mucous moist Respiratory: breathing comfortably on room air, no wheezing/rhonchi/rales Cardiovascular: regular rate and rhythm, no murmurs/rubs Gastrointestinal (Abdomen): soft, non tender, non distended Musculoskeletal: no edema Neurologic: awake, alert, spontaneously moving extremities Results & Data Results & Data Vital Signs (Past 12 Hours) Vital Signs Temp Pulse Pulse Resp BP Pulse Ox Pulse Ox 02/09/23 14:00 85 02/09/23 14:45 37 C 84 20 94/58 L 94 02/09/23 11:02 36.6 C 80 20 83/52 L 96 02/09/23 11:12 95 02/09/23 07:40 36.6 C 80 17 87/52 L 96 02/09/23 07:18 77 O2 Del Method O2 Flow Rate O2 Flow Rate 02/09/23 14:00 02/09/23 14:45 Room Air 02/09/23 11:02 Nasal Cannula 2 02/09/23 11:12 1.5 02/09/23 07:40 Nasal Cannula 2 02/09/23 07:18 (2) Hypotension Hypotension type: unspecified hypotension type Qualified Code(s): I95.9 - Hypotension, unspecified (4) Diarrhea Diarrhea type: unspecified type Qualified Code(s): R19.7 - Diarrhea, unspecified
[2023-02-09] MEDS: SODIUM CHLORIDE 0.9% 1000ML 1,000 ML IV SCH (17:37)
[2023-02-09] MEDS ORDERED: PHARMACY GLYCEMIC MGMT CONSULT PRN (18:56)
[2023-02-09] MEDS: oxyCODONE HCL IR 5 MG TAB (IMMEDIATE RELEASE) PO PRN (19:45)
[2023-02-09] MEDS ORDERED: hydrOXYzine HCl 25 MG TAB PO SCH (21:00)
[2023-02-10] MEDS: CHANTIX~ORDER AWAITING ACTION SCH ×2 (01:02→07:50)
[2023-02-10] MEDS: SODIUM CHLORIDE 0.9% 1000ML 1,000 ML IV SCH ×2 (04:43→10:13)
[2023-02-10] MEDS: oxyCODONE HCL IR 5 MG TAB (IMMEDIATE RELEASE) PO PRN (06:16)
[2023-02-10] MEDS: INSULIN ASPART PER UNIT CHARGE SC SCH ×2 (07:49→12:03)
[2023-02-10 07:52] LABS: Basophils # (auto) 0.04 K/uL (0-0.2); Basophils % (auto) 0.5 %; Eosinophils % (auto) 3.8 %; Hematocrit (blood only) 39.9 % (37.0-47.0); Hemoglobin 13.4 g/dl (12.0-16.0); Immature Granulocytes # (auto) 0.02 K/uL (0.01-0.20); Immature Granulocytes % (auto) 0.3 %; Lymphocytes # (auto) 2.43 K/uL (1.2-3.4); Lymphocytes % (auto) 31.1 %; Mean Corpuscular Hemoglobin 30.2 pg (25.0-34.0); Mean Corpuscular Hgb Conc 33.6 g/dL (32.0-36.0); Mean Corpuscular Volume 89.9 fL (80.0-100.0); Mean Platelet Volume 11.9 fL (9.4-12.4); Monocytes % (auto) 7.7 %; Neutrophils # (auto) 4.42 K/uL (1.40-6.50); Neutrophils % (auto) 56.6 %; Platelet Count 253 K/uL (130-400); RDW Coefficient of Variation 12.9 % (11.5-14.5); RDW Standard Deviation 42.1 fL (36.4-46.3); Red Blood Count 4.44 M/uL (4.20-5.40); White Blood Count 7.81 K/ul (4.8-10.8)
[2023-02-10 08:05] LABS: BUN Creatinine Ratio 6.2 (10-20); Est GFR (African American) 94.1 ml/min; Est GFR (Non-African American) 81.2 ml/min; Magnesium 2.1 mg/dl (1.7-2.4); Phosphorus 3.2 mg/dl (2.5-4.9); Potassium 3.6 mmol/L (3.5-5.1)
[2023-02-10] MEDS: METOPROLOL SUCC 25MG EXT REL TAB PO SCH ×2 (09:00→10:03)
--- NOTE | 2023-02-10 09:10 | XRay Report ---
KUB CLINICAL HISTORY: Nausea, vomiting. COMPARISON STUDY: CT of the abdomen and pelvis February 04, 2023. FINDINGS: Left hip arthroplasty is incidentally noted. There are cholecystectomy clips. The bowel gas pattern is normal. Amount of stool is within normal limits. IMPRESSION: No evidence for a bowel obstruction. ACT 112: Negative or not required by law. Electronically signed by: Matthew Mahmood M.D. 02/10/2023 9:09 AM
[2023-02-10] MEDS: FLUTICASONE/VILANTEROL 100/25MCG 14 PUFFS/INHALER INH SCH (09:57)
[2023-02-10] MEDS: MONTELUKAST SODIUM 10 MG TABLET PO SCH (09:58)
[2023-02-10] MEDS: OXYBUTYNIN CHLORIDE XL 5 MG TABCR PO SCH (09:58)
[2023-02-10] MEDS: ASPIRIN 81 MG ECTAB PO SCH (09:58)
[2023-02-10] MEDS: MULTIVITAMIN TAB PO SCH (09:58)
[2023-02-10] MEDS: ROSUVASTATIN CALCIUM 10 MG TAB PO SCH (09:58)
[2023-02-10] MEDS: DULoxetine HCL 30 MG CAP PO SCH (09:58)
[2023-02-10] MEDS: DULoxetine HCL 60 MG CAP PO SCH (09:58)
[2023-02-10] MEDS: UMECLIDINIUM BROMIDE 62.5MCG/BLISTER 7 PUFFS/INHALER INH SCH (09:59)
[2023-02-10] MEDS: PANTOprazole 40 MG TAB PO SCH (09:59)
[2023-02-10] MEDS: LANTUS PER UNIT CHARGE SQ SCH (10:02)
[2023-02-10] MEDS: ENOXAPARIN INJ 40 MG/0.4 ML SYR SQ SCH (10:03)
--- NOTE | 2023-02-10 12:34 | Hospitalist Progress Note ---
Date of Service February 10, 2023 Assessment & Plan (1) LETI (acute kidney injury): Plan: Secondary to GI loses Diuretics held Losartan held as well Given low BP, no plan to resume losartan Renal function back to baseline Received IV fluids Nausea, vomiting, diarrhea ? Secondary to Mounjaro (recently increased dose per patient) Also ? Varenicline contributing as well No recurrence of symptoms while hospitalized Unable to obtain stool studies to rule out infectious source Both Mounjaro and Varenicline held during hospitalization Symptoms resolved Advised patient to discuss with PCP upon discharge for further adjustment of medications as needed (2) Hypotension: Plan: BP usually runs in Low 100s per patient Discontinue losartan for now Continue Metoprolol with holding parameters Monitor BP (3) Hypokalemia: Plan: Repleted (4) Diarrhea: Plan: stool studies ordered (previously patient had diarrhea at home which resolved here. stool studies not sent on last admission due to no diarrhea in the hospital) (5) MARY BETH (obstructive sleep apnea): Plan: On Chronic Supplemental Oxygen at Bipap HS at bedtime (6) Bipolar I disorder: Plan: continue ziprasidone (7) Anxiety and depression: Plan: continue duloxetine, hydroxyzine (8) Chronic obstructive pulmonary disease: Plan: stable, no wheezing on exam continue home nebulizer/inhalers (9) Diabetes mellitus, type 2: Plan: glycemic pharmacy management Monitor BGs DVT Px Lovenox SQ Code Status Full Code Admission and Anticipated Discharge Date Admission Date: February 08, 2023 Subjective Patient is seen and examined at bedside States feeling well today Offers no new complaints No recurrence of nausea, vomiting, diarrhea Denies any chest pain, dyspnea, dizziness, abdominal pain Family at bedside Review of Systems Review of Systems: All systems reviewed & are unremarkable except as noted in Subjective Physical Exam Physical Exam: Physical Exam: Vitals signs as noted above General Appearance:Obese, no apparent distress Head: normocephalic, Atraumatic Eyes: normal inspection, EOMI Neck: supple, Trachea midline Respiratory/Chest: Normal breath sounds, CTA, No accessory muscle use Cardiovascular: S1, S2, No murmur Abdomen/GI:Soft, Non tender, Bowel sounds present Extremities/Musculoskeletal:normal inspection, no edema Neurologic/Psych:AAOX3, grossly no focal neurological deficits Skin: normal color, warm Results & Data Results & Data Vital Signs (Past 12 Hours) Vital Signs Temp Pulse Pulse Resp BP Pulse Ox O2 Del Method 02/10/23 11:03 36.5 C 77 18 99/65 L 97 Room Air 02/10/23 10:07 87 111/72 02/10/23 07:15 36.5 C 81 20 86/53 L 99 Room Air 02/10/23 06:00 67 02/10/23 02:45 36.4 C L 72 18 96/63 L 100 Nasal Cannula O2 Flow Rate 02/10/23 11:03 02/10/23 10:07 02/10/23 07:15 02/10/23 06:00 02/10/23 02:45 1.5 Laboratory Results Short CBC 02/10/23 Range/Units 06:54 WBC 7.81 (4.8-10.8) K/ul Hgb 13.4 (12.0-16.0) g/dl Hct 39.9 (37.0-47.0) % Plt Count 253 (130-400) K/uL BMP 02/10/23 06:54 Sodium 142 Potassium 3.6 Chloride 111 H Carbon Dioxide 24 BUN 5 L Creatinine 0.81 Glucose 104 H Calcium 9.0 (2) Hypotension Hypotension type: unspecified hypotension type Qualified Code(s): I95.9 - Hypotension, unspecified (4) Diarrhea Diarrhea type: unspecified type Qualified Code(s): R19.7 - Diarrhea, unspecified
--- NOTE | 2023-02-10 13:15 | Discharge Summary ---
Date of Service February 10, 2023 Admission HPI Per Admitting Provider This is a 57 year old female with PMH of insulin-dependent DM II, MARY BETH, Asthma, Bipolar disorder, chronic diastolic CHF and other medical problems listed below who was admitted earlier this week from 02/03-02/05 for LETI due to dehydration and sepsis. Patient improved with symptomatic treatment including IV fluids and did not have any recurrent diarrhea while admitted, so stool studies were not sent. CT A/P which was unremarkable. Renal function improved prior to discharge home but lasix, spironolactone and losartan were held at discharge with instructions for when to resume with PCP and psych follow-up. She felt well at time of discharge home on Wednesday, but then nausea recurred and she was not able to tolerate much of any food by mouth since then. Has been trying to drink water. On Wednesday, noted increased generalized weakness and had to falls when ambulating with a walker when she stepped forward and legs gave out. States that weakness is general and that both legs were giving out. Denies any head trauma or loss of consciousness. Yesterday, diarrhea recurred and she endorsed 2 episodes of watery brown stool as well as persistent and worsening nausea. Denies any vomiting. Per EMS, blood pressure was low with systolic in the 80s prior to arrival to [facility] ED. Has continued to hold Lasix, losartan and lithium. Endorses lightheadedness and generalized weakness. No fever, chills, CP, wheezing, vomit ing, abdominal pain, dysuria, constiption. Lives with at home. Admission Exam Per Admitting Provider General Appearance:WD/WN, vitals as above, NAD, sitting up in bed, pleasant, conversing easily Head: normocephalic, atraumatic Eyes:normal inspection, PERRL, conjunctivae normal, anicteric sclerae ENT: external ear and nose normal, oropharynx with dry mucous membranes Neck: normal visual inspection, trachea midline, no thyromegaly Respiratory:normal respiratory effort, lungs clear to auscultation, no wheeze, rales, rhonchi. No accessory muscle use Cardiovascular: regular rate, rhythm, no murmur, normal peripheral pulses, no BLE edema. Vessels: no JVD Chest: normal inspection of chest Abdomen/GI: normal bowel sounds, soft, nontender, no hepatosplenomegaly Extremities/Musculoskeletal: no cyanosis or clubbing, extremities motor strength 5/5 Neurologic: PERRL, EOMI, accommodation nl, no face palsy, no dysarthria, CN's II-XI intact bilaterally and moves all extremities Psychiatric:A+Ox3, euthymic affect Skin: no rashes, normal color, warm/dry Principal Diagnosis Acute kidney injury Hypokalemia Nausea, vomiting, diarrhea Discharge Data Allergies Allergy/AdvReac Type Severity Reaction Status Date / Time Sulfa (Sulfonamide Allergy Severe ANAPHYLAXIS Verified 02/08/23 20:00 Antibiotics) sumatriptan Allergy Severe ANAPHYLAXIS Verified 02/08/23 20:00 adhesive Allergy Intermediate Blister Verified 02/08/23 20:00 morphine Allergy Intermediate EXTREME Verified 02/08/23 20:00 ITCHING amoxicillin AdvReac Intermediate GI SYMPTOMS Verified 02/08/23 20:00 clavulanic acid AdvReac Intermediate GI SYMPTOMS Verified 02/08/23 20:00 lactose AdvReac Intermediate Diarrhea Verified 02/08/23 20:00 venlafaxine AdvReac Intermediate Nightmare Verified 02/08/23 20:00 Consultations 02/08/23 21:18 ED Decision to Admit Stat Procedures Performed Laboratory Results WBC 7.81 K/ul (4.8-10.8) 02/10/23 06:54 RBC 4.44 M/uL (4.20-5.40) 02/10/23 06:54 Hgb 13.4 g/dl (12.0-16.0) 02/10/23 06:54 Hct 39.9 % (37.0-47.0) 02/10/23 06:54 MCV 89.9 fL (80.0-100.0) 02/10/23 06:54 MCH 30.2 pg (25.0-34.0) 02/10/23 06:54 MCHC 33.6 g/dL (32.0-36.0) 02/10/23 06:54 RDW Std Deviation 42.1 fL (36.4-46.3) 02/10/23 06:54 RDW Coeff of Vickie 12.9 % (11.5-14.5) 02/10/23 06:54 Plt Count 253 K/uL (130-400) 02/10/23 06:54 MPV 11.9 fL (9.4-12.4) 02/10/23 06:54 Immature Gran % (Auto) 0.3 % 02/10/23 06:54 Neut % (Auto) 56.6 % 02/10/23 06:54 Lymph % (Auto) 31.1 % 02/10/23 06:54 [place] % (Auto) 7.7 % 02/10/23 06:54 Eos % (Auto) 3.8 % 02/10/23 06:54 Baso % (Auto) 0.5 % 02/10/23 06:54 Neut # (Auto) 4.42 K/uL (1.40-6.50) 02/10/23 06:54 Lymph # (Auto) 2.43 K/uL (1.2-3.4) 02/10/23 06:54 [place] # (Auto) 0.60 K/uL (0.11-0.59) H 02/10/23 06:54 Eos # (Auto) 0.30 K/uL (0-0.50) 02/10/23 06:54 Baso # (Auto) 0.04 K/uL (0-0.2) 02/10/23 06:54 Immature Gran # (Auto) 0.02 K/uL (0.01-0.20) 02/10/23 06:54 Sodium 142 mmol/L (136-145) 02/10/23 06:54 Potassium 3.6 mmol/L (3.5-5.1) 02/10/23 06:54 Chloride 111 mmol/L (98-107) H 02/10/23 06:54 Carbon Dioxide 24 mmol/L (21-32) 02/10/23 06:54 Anion Gap 7 (3-11) 02/10/23 06:54 BUN 5 mg/dl (6-23) L 02/10/23 06:54 Creatinine 0.81 mg/dl (0.6-1.2) 02/10/23 06:54 Est Cr Clr Drug Dosing 83.0 ml/min 02/10/23 06:54 Est GFR ( Amer) 94.1 ml/min 02/10/23 06:54 Est GFR (Non-Af Amer) 81.2 ml/min 02/10/23 06:54 BUN/Creatinine Ratio 6.2 (10-20) L 02/10/23 06:54 Glucose 104 mg/dl (70-99(Fasting)) H 02/10/23 06:54 POC Glucose 95 mg/dl (70-99) 02/10/23 11:22 Lactate 1.6 mmol/L (0.4-2.0) 02/08/23 19:07 Calcium 9.0 mg/dl (8.6-10.3) 02/10/23 06:54 Phosphorus 3.2 mg/dl (2.5-4.9) 02/10/23 06:54 Magnesium 2.1 mg/dl (1.7-2.4) 02/10/23 06:54 Total Bilirubin 0.8 mg/dl (0.2-1.0) 02/08/23 19:07 AST 24 U/L (13-39) 02/08/23 19:07 ALT 31 U/L (7-52) 02/08/23 19:07 Alkaline Phosphatase 110 U/L (34-104) H 02/08/23 19:07 Troponin I High Sens 3.2 pg/ml (0-14) 02/08/23 19:07 Total Protein 6.7 gm/dl (6.0-8.3) 02/08/23 19:07 Albumin 3.9 gm/dl (3.4-5.0) 02/08/23 19:07 Globulin 2.8 gm/dl (2.5-4.0) 02/08/23 19:07 Albumin/Globulin Ratio 1.4 (0.9-2) 02/08/23 19:07 TSH 6.570 uIu/ml (0.300-4.500) H 02/08/23 19:07 Free T4 1.11 ng/dl (0.61-1.60) 02/08/23 19:07 Urine Color Yellow 02/08/23 21:30 Urine Appearance Clear (Clear) 02/08/23 21:30 Urine pH 7.5 (4.5-7.5) 02/08/23 21:30 Ur Specific [place] 1.006 (1.000-1.030) 02/08/23 21:30 Urine Protein Negative (Negative) 02/08/23 21:30 Urine Glucose (UA) 2+ (Negative) H 02/08/23 21:30 Urine Ketones Negative (Negative) 02/08/23 21:30 Urine Blood Negative (Negative) 02/08/23 21:30 Urine Nitrite Negative (Negative) 02/08/23 21:30 Urine Bilirubin Negative (Negative) 02/08/23 21:30 Urine Urobilinogen Negative (Negative) 02/08/23 21:30 Ur Leukocyte Esterase Negative (Negative) 02/08/23 21:30 SARS-CoV-2, RNA, NAAT NEGATIVE (NEGATIVE) 02/08/23 19:30 Impressions Chest X-Ray 02/08/23 18:48 XR chest 1V portable CLINICAL HISTORY: weakness COMPARISON STUDY: Chest CT May 13, 2019. Chest radiograph July 31. FINDINGS: Lung volumes are again noted with elevation of the right hemidiaphrag m. Linear lung densities suggest atelectasis. There is no consolidation to suggest pneumonia and there is no evidence for pulmonary edema. IMPRESSION: No acute cardiopulmonary findings. No significant change in appearance of the chest. ACT 112: Negative or not required by law. Electronically signed by: Matthew Mahmood M.D. 02/09/2023 7:43 AM KUB X-Ray 02/10/23 08:36 KUB CLINICAL HISTORY: Nausea, vomiting. COMPARISON STUDY: CT of the abdomen and pelvis February 04, 2023. FINDINGS: Left hip arthroplasty is incidentally noted. There are cholecystectomy clips. The bowel gas pattern is normal. Amount of stool is within normal limits. IMPRESSION: No evidence for a bowel obstruction. ACT 112: Negative or not required by law. Electronically signed by: Matthew Mahmood M.D. 02/10/2023 9:09 AM Hospital Course (1) LETI (acute kidney injury): Secondary to GI loses Diuretics held Losartan held as well Given low BP, no plan to resume losartan Renal function back to baseline Received IV fluids Nausea, vomiting, diarrhea ? Secondary to Mounjaro (recently increased dose per patient) Also ? Varenicline contributing as well No recurrence of symptoms while hospitalized Unable to obtain stool studies to rule out infectious source Both Mounjaro and Varenicline held during hospitalization Symptoms resolved Advised patient to discuss with PCP upon discharge for further adjustment of medications as needed (2) Hypotension: BP usually runs in Low 100s per patient Discontinue losartan for now Continue Metoprolol with holding parameters Monitor BP (3) Hypokalemia: Repleted (4) Diarrhea: stool studies ordered (previously patient had diarrhea at home which resolved here. stool studies not sent on last admission due to no diarrhea in the hospital) (5) MARY BETH (obstructive sleep apnea): On Chronic Supplemental Oxygen at Bipap HS at bedtime (6) Bipolar I disorder: continue ziprasidone (7) Anxiety and depression: continue duloxetine, hydroxyzine (8) Chronic obstructive pulmonary disease: stable, no wheezing on exam continue home nebulizer/inhalers (9) Diabetes mellitus, type 2: glycemic pharmacy management Monitor BGs DVT Px Lovenox SQ Code Status Full Code Total Time Total Time Spent Total Time Spent (In Minutes): 54 minutes Discharge Plan Discharge Items Patient Disposition: Home - Self-Care Reason For Visit: HYPOKALEMIA Discharge Diagnosis: Acute kidney injury Hypokalemia Nausea, vomiting, diarrhea Condition on Discharge: Fair Activity: Per Instructions section Exercise/Sports: Gradually increase as tolerated Non-emergency contact: Primary Care Provider Call non-emergency contact if: you have any medication questions, your symptoms worsen, your pain is concerning for you and you have a fever Follow-up/Referrals: Enzo Michael MD [Primary Care Provider] - Diet: Carb Consistent or DM2 Addtl Attending Provider Instructions: Follow-up with your primary care physician on February 15, 2023 at 2 PM as scheduled. 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 Alba as needed --- Your losartan is discontinued due to low blood pressure --- Hold taking Mounjaro and Varenicline until further recommendations by your primary care physician as advised. --- Discuss with your primary care physician for further adjustment of your medications to manage his diabetes as advised. Seek immediate medical attention if your symptoms reoccur or worsen Please take all medications as instructed on discharge list below. Please call if you have any questions or problems. You can reach a [facility] hospitalist on duty at [facility] 24 hours a day by calling [phone] Pending Studies at Discharge: No Stand-Alone Forms: My [facility] WBS, Smoking Cessation Medications and DC Order Prescriptions: Continued (DME) nebulizers Misc See Rx Instructions .ROUTE .MEDSUPPLY Qty: 1 0RF Rx Instructions: Use as directed (DME) CPAP Supplies Misc See Rx Instructions .ROUTE .MEDSUPPLY Qty: 1 0RF Rx Instructions: PT. REQUESTS NASAL PILLOWS AND CHIN STRAP. NICHELLE montelukast 10 mg tablet 10 mg PO DAILY Qty: 90 3RF Patient Comments: TAKES HS Spiriva with HandiHaler 18 mcg capsule, w/inhalation device 1 cap inhalation DAILY Qty: 30 5RF Rx Instructions: puncture 1 cap using device; one dose = 2 inhalations (DME) BiPap Machine Misc See Rx Instructions .ROUTE .MEDSUPPLY Qty: 1 0RF Rx Instructions: BiPAP i24/e16 cm H20, tubing, supplies, heated humidification. Modem with AHI and compliance. 99-year ziprasidone HCl [Geodon] 60 mg capsule 60 mg PO BID metoprolol succinate 25 mg capsule,sprinkle,ER 24hr 25 mg PO QAM budesonide-formoterol [Symbicort] 160-4.5 mcg/actuation HFA aerosol inhaler 2 puff INHALATION BID Qty: 10.2 5RF pantoprazole [Protonix] 40 mg tablet,delayed release (DR/EC) 40 mg PO BID dicyclomine 20 mg Tablet 20 mg PO Q8 PRN (Reason: Abdominal Pain) furosemide [Lasix] 80 mg Tablet 80 mg PO Q OTHER DAY Hold Instructions: Resume on 02/06/23. Resume when diet and appetite back to normal Rx Instructions: ALTERNATES EVERY OTHER DAY WITH 60MG - ON HOLD alendronate [Fosamax] 70 mg Tablet 70 mg PO WK Rx Instructions: FRIDAYS aspirin [Rhys Low Dose Aspirin] 81 mg Tablet,Delayed Release (Dr/Ec) 81 mg PO QAM spironolactone [Aldactone] 25 mg Tablet 25 mg PO QAM Hold Instructions: Resume on 02/06/23. Resume when diet and appetite is back to normal Jardiance 25 mg tablet 25 mg PO QAM multivitamin Tablet 1 tab PO QAM furosemide [Lasix] 40 mg Tablet 60 mg PO Q OTHER DAY Hold Instructions: Resume on 02/06/23. Resume when diet and appetite back to normal Rx Instructions: ALTERNATES EVERY OTHER DAY WITH 80MG - ON HOLD ascorbic acid (vitamin C) [Vitamin C] 1,000 mg Tablet 1 g PO QAM lorazepam 1 mg Tablet 1 mg PO DAILY PRN (Reason: Panic Attack(S)) cholecalciferol (vitamin D3) [Vitamin D3] 25 mcg (1,000 unit) Capsule 25 mcg PO QAM rosuvastatin [Crestor] 10 mg Tablet 10 mg PO QAM omega-3 acid ethyl esters [Lovaza] 1 gram Capsule 2 cap PO BID memantine 14 mg capsule,sprinkle,ER 24hr 14 mg PO QAM albuterol sulfate 0.63 mg/3 mL solution for nebulization 0.63 mg continuous nebulization Q6 PRN (Reason: Shortness Of Breath Or Wheezing) insulin glargine [Lantus Solostar U-100 Insulin] 100 unit/mL (3 mL) insulin pen 20 unit SUBCUT QAM baclofen 5 mg tablet 2.5 mg PO TID PRN (Reason: Muscle Spasm) hydroxyzine HCl 25 mg tablet 25 mg PO HS Rx Instructions: TOTAL DOSE 75 MG--TAKES WITH 50 MG TAB. DO NOT TAKE WITH LORAZAPAM. hydroxyzine HCl 10 mg tablet 10 mg PO QAM duloxetine 30 mg capsule,delayed release(DR/EC) 30 mg PO QAM Rx Instructions: TOTAL DOSE 90 MG--TAKES WITH 60 MG CAP. duloxetine 60 mg capsule,delayed release(DR/EC) 60 mg PO QAM Rx Instructions: TOTAL DOSE 90 MG--TAKES WITH 60 MG CAP. hydroxyzine HCl 50 mg tablet 50 mg PO HS Rx Instructions: do not take with lorazepam-- TOTAL DOSE 75 MG--TAKES WITH 25 MG TAB. ondansetron 4 mg tablet,disintegrating 4 mg translingual Q8 ketoconazole 2 % shampoo 1 applic TOPICAL .2-3 TIMES PER WEEK diclofenac sodium 1 % gel 4 g TOPICAL QID PRN (Reason: Pain) oxybutynin chloride 10 mg tablet extended release 24hr 10 mg PO QAM Held Mounjaro 15 mg/0.5 mL pen injector 15 mg SUBCUT WK Hold Instructions: Resume on 02/15/23. Hold Until further recommendations by your doctor Rx Instructions: FRIDAYS varenicline 1 mg tablet 1 mg PO AMHS Hold Instructions: Resume on 02/15/23. Hold Until further recommendations by your doctor Discontinued losartan 50 mg Tablet 50 mg PO QAM Hold Instructions: Resume on 02/06/23. resume when systolic blood pressure above 140 Discharge Orders: Discharge Order (Routine); Ordered 02/10/23 Ordered By: Junior Chairez Admission Data Admit Date/Time: 02/08/23 22:47 Attending Provider: Junior Chairez Admit Provider: Daniel Brush Primary Care Provider: Enzo Michael Other Providers: Daniel Brush
== END 2023-02-10 14:14 | disposition home or self-care (01) ==
LOC: ED 18:32 → 2N 18:32 → SUATTDRO 22:47 → 2N 02-09 00:51